=== PATIENT | female | born 1955 ===

== ENCOUNTER 2022-06-13 09:23 | Outpatient (REF) | payer OTHER, SELFPAY ==
[2022-06-13 11:50] LABS: Hematocrit 47.3 % (37.0-47.0); Hemoglobin 15.5 g/dl (12.0-16.0); Mean Corpuscular HGB Conc 32.8 g/dl (31.0-35.0); Mean Corpuscular Hemoglobin 30.2 pg (27.0-33.0); Mean Platelet Volume 11.1 fL (9.4-12.3); Platelet Count 312 X10*3/uL (160-400); Red Blood Count 5.14 X10*6/uL (4.20-5.50); Red Cell Distribution Width 14.2 % (11.0-16.0); White Blood Count 7.1 X10*3/uL (4.8-10.8)
[2022-06-13 12:12] LABS: Alanine Aminotransferase 22 U/L (0-31); Albumin Level 4.2 g/dL (3.5-5.0); Alkaline Phosphatase 94 U/L (39-117); Anion Gap 12 (12-20); Aspartate Amino Transferase 19 U/L (5-31); Bilirubin Total 0.5 mg/dL (0.0-1.0); Blood Urea Nitrogen 15 mg/dL (9-16); Calcium 9.1 mg/dL (8.4-10.2); Carbon Dioxide 26 mmol/L (22-29); Chloride 107 mmol/L (96-108); Cholesterol 298 mg/dL; Estimated Glomerular Filt Rate 56; Glucose Fasting 98 mg/dL (60-99); HDL Cholesterol 49 mg/dL; LDL Cholesterol Calculated 216 mg/dl; Potassium 4.3 mmol/L (3.3-5.1); Sodium 141 mmol/L (135-145); Triglycerides 167 mg/dL
[2022-06-13 12:49] LABS: TSH reflex Free T4 1.33 uIU/mL (0.32-4.0)
[2022-06-13 13:47] LABS: Vitamin D 25-OH Total 35.8 ng/mL (>30)
== END 2022-06-13 09:24 | disposition home or self-care (01) ==
LOC: HO.WFDLDS 09:23
PROVIDERS: Visit Provider Nurse Practitioner Family
DX: Z00.00 Encounter for general adult medical examination without abnormal findings (principal)
CPT/HCPCS: 36415; 80053; 80061; 82306; 84443; 85027

== ENCOUNTER 2022-06-21 11:23 | Outpatient (REF) | payer OTHER, SELFPAY ==
[2022-06-21 14:22] LABS: Appearance Urine Cloudy; Color Urine Yellow; Glucose Urine UA Negative (Negative); Leukocyte Esterase Urine Negative (Negative); Nitrite Urine Negative (Negative); PH 7.5 (5.0-9.0); Specific Gravity - Urine 1.015 (1.005-1.025); Urine Blood Negative (Negative); Urine Ketones Negative (Negative); Urine Protein Negative (Neg-Trace)
== END 2022-06-21 11:24 | disposition home or self-care (01) ==
LOC: HO.WFDLNP 11:23
PROVIDERS: Visit Provider Nurse Practitioner Family
DX: R35.0 Frequency of micturition (principal)
CPT/HCPCS: 81003

== ENCOUNTER → 2022-08-16 09:41 | Outpatient (BNVA) | payer OTHER, SELFPAY | PROVIDERS: PCP Nurse Practitioner Family; Visit Provider Nurse Practitioner Family | DX: N39.3 Stress incontinence (female) (male) (principal) | CPT/HCPCS: 51798; 99202 ==

== ENCOUNTER 2022-08-17 09:00 | Outpatient (RCR) | payer OTHER, SELFPAY ==
--- NOTE | 2022-08-04 10:19 | MHC.OT.EP ---
[address] [phone] Occupational Therapy Plan of Care Patient Name: Eveline Patricio Date of Evaluation: 08/04/22 Diagnosis: Pain in right hand Pain Location: 0-7 right index finger and small finger IP's Pain Score: Burning Pain Scale Used: Numeric (0 - 10) Aggravating Factors: Using, bending finger Alleviating Factors: Nemesio Mccrary, glove , massage Assessment: Pt is a 66 yo female with worsening ring index finger pain and stiffness over this past 6 months Pt reports she is now increased difficulty with daily activities due right hand index finger due to pain and avoiding use of index Pt will benefit from OT to improve pain , ROM and right hand function to prevent worsening jt contracture and pain Frequency and Duration: The patient will be seen 2x wk x 3 wks Short Term Goals: Demo indep with HEP Demo use of thermal modalities and jt protection techniques for pain management Use of right index with ADL Use of right index for small object pick up man and manipulation Event Crew Technician Goals: Indep with HEP progression for ROM and hand strengthening Right skin lifter bacon to WNL Right tip pinch to > 6 lb Right index PIP flex > 90 deg Right index DIP flex > 45 deg Treatment Plan: Therapeutic Exercise Therapeutic Activity Home Exercise Program Patient Education ADL Training Paraffin Fluidotherapy MHP Electronically Signed By: Yas Oliver OT CHT CLT Please Sign and return to therapist. Thank you once again for your referral.
--- NOTE | 2022-08-17 09:47 | MHC.OT.DC ---
[address] [phone] F: [phone] Occupational Therapy Discharge Note Patient Name: Eveline Patricio Provider: Waldo Murillo Diagnosis: Pain in right hand Date of Surgery: Date of Evaluation: 08/04/22 Date of Discharge: 08/17/22 Treatments to Date: 4 Cancellations to Date: 1 No Shows to Date: Discharge Status: Achieved Goals Improved Function Independent with HEP Discharge Summary: Improving right hand pain and index finger ROM , WFL . Deck Mate strength WNL. Pt is aware of joint protection techniques for index finger with daily activities. Goals met. Electronically Signed By: Yas Oliver OT CHT CLT Reviewed/agree with student documentation: Therapist: Please Sign and return to therapist, thank you for your referral.
== END 2022-08-17 09:48 | disposition home or self-care (01) ==
LOC: HO.OT 09:00
PROVIDERS: PCP Nurse Practitioner Family; Visit Provider Nurse Practitioner Family
DX: M79.641 Pain in right hand (principal)
CPT/HCPCS: 97035; 97110; 97165

== ENCOUNTER 2022-09-14 09:51 | Outpatient (REF) | payer OTHER, SELFPAY ==
--- NOTE | ~2022-09-14 | US_ITS ---
EXAMINATION: US RETROPERITONEAL COMPLETE (RENAL) CLINICAL INFORMATION: Unspecified urinary incontinence. Kidney donor. COMPARISON: None available. TECHNIQUE: Real-time imaging of the solitary right kidney and bladder. Limited visualization due to bowel gas. FINDINGS: RIGHT KIDNEY: 11.5 x 4.9 x 6.4 cm (SAG x AP x TRV). There is a 0.3 cm renal calculus. Mild fullness right renal pelvis. Scattered tiny echogenic foci within the right kidney, possibly representing tiny calcifications. Limited visualization. Renal cortical thickness is normal. LEFT KIDNEY: Surgically absent, donated. BLADDER: Well distended and unremarkable. Bilateral ureteral jets are demonstrated. Prevoid bladder volume is 323 mL. Postvoid bladder volume is 19.2 mL. US/US retroperitoneal comp IMPRESSION: 1. There is a 0.3 cm right renal calculus. Mild fullness right renal pelvis. Scattered tiny echogenic foci within the right kidney, possibly representing tiny calcifications. 2. Left kidney is surgically absent.
== END 2022-09-14 09:52 | disposition home or self-care (01) ==
LOC: HO.US 09:51
PROVIDERS: Visit Provider Nurse Practitioner Family
DX: N39.3 Stress incontinence (female) (male) (principal)
CPT/HCPCS: 76770

== ENCOUNTER 2022-10-11 08:41 | Outpatient (REF) | payer OTHER, SELFPAY ==
[2022-10-11 11:58] LABS: Cholesterol 214 mg/dL; HDL Cholesterol 48 mg/dL; LDL Cholesterol Calculated 117 mg/dl; Triglycerides 249 mg/dL
== END 2022-10-11 08:42 | disposition home or self-care (01) ==
LOC: HO.WFDLDS 08:41
PROVIDERS: Visit Provider Nurse Practitioner Family
DX: E78.5 Hyperlipidemia, unspecified (principal)
CPT/HCPCS: 36415; 80061

== ENCOUNTER 2022-10-13 09:51 | Outpatient (AMB) | payer OTHER, SELFPAY ==
--- NOTE | 2022-10-13 09:54 | A.OFFPC_ITS ---
Vital Signs 10/13/22 09:57 Height 5 ft 4 in Weight 150 lb BMI 25.7 BP 124/78 Blood Pressure Location Lt brachial Position Sitting Pulse 79 Pulse Source Pulse Oximeter Pulse Oximetry (%) 98 Intake Visit Reasons: f/u HTN Intake Note: pt is here for HTN [employer] Hrms Developer Required: No Accompanied by: Self / Same As Patient Allergies No Known Allergies Allergy (Verified 10/13/22 10:13) Medication List - Last Reconciled 10/13/22 by Waldo Murillo CNP atorvastatin 20 mg PO BEDTIME omeprazole 20 mg PO DAILY 30 days oxybutynin chloride ER 10 mg PO DAILY 30 days Tobacco use date assessed: 06/21/22 Fall risk assessment: No Falls in past year Last assessed Fall Risk: 10/13/22 Dental Screening Dental Screen Date: 10/13/22 Did you have a dental visit in the last 12 months?: Yes Did you have a dental problem in the last 6 months where you did not have access to dental care?: No Was dental information given to patient?: Patient has dentist HPI HPI Comments History of Present Illness Details 66-year-old female presents for elevated blood pressure and hyperlipidemia follow-up. She notes she has been taking her medications as prescribed. No acute symptoms today. She notes that right hand pain has completely resolved following PT. She notes she does not recall her last mammogram and pap smear test. She states she has never had a bone scan. She states she has not received the pneumonia vaccine because she was asked by the pharmacy to pay $200 dollars as her health plan does not cover the vaccines. She admits to smoking 10 cigarettes daily. She states she will quit when she is ready. PFSH Family History Brother Lung cancer Brain cancer Social History Housing: Apartment Patient Tobacco Use Status: Current everyday Tobacco user Tobacco use type: Cigarette Cigarette Packs Per Day: 1 Cigarettes Per Day: 20 e-Cigarette/Vaping Use: Never Used service: No Current occupational status: retired Cognitive needs: No Hearing needs: No Vision needs: No Questionnaire Thrive Questionnaire Date Thrive assessed: 04/28/22 ERIK-7 AMB Questionnaire ERIK-7 Date ERIK - 7 assessed: 04/28/22 Source: Developed by Drs. Lazaro Meeks, Ania Gaytan, Juan Zhang and colleagues, with an educational donta from [employer]. Review of Systems Const Details: Const Denies chills, Denies fatigue, Denies fever(s), Denies headache(s) and Denies w eakness ENT Denies dizziness and Denies headache(s) Card Denies chest pain, Denies lightheadedness, Denies dyspnea and Denies other (Palpitations) Resp Denies cough, Denies dyspnea, Denies wheezing and Denies other ( shortness of breath) GI Denies abdominal pain, Denies melena, Denies hematochezia, Denies change in bowel habits, Denies dyspepsia and Denies nausea Denies hematuria and Denies dysuria Musc Denies abnormal gait, Denies myalgias, Denies arthralgias, Denies numbness and Denies tingling Skin/Breast Denies rash, Denies unusual bruising and Denies wounds Neuro Denies abnormal gait, Denies dizziness, Denies headache(s), Denies memory loss, Denies numbness, Denies Sensory deficit (Neuro), Denies tingling and Denies weakness Psych Denies anxiety and Denies depression Endo Denies fatigue Aller/Immun Denies wheezing Physical exam (Primary Care) Vital Signs: Last Vital Signs Pulse 79 10/13/22 09:57 BP 124/78 10/13/22 09:57 Pulse Ox 98 10/13/22 09:57 BMI result Body Mass Index 25.7 Tobacco/Smoking Status: Tobacco use Status Tobacco use date assessed 06/21/22 10/13/22 09:55 Patient Tobacco Use Status Current everyday Tobacco 10/13/22 09:55 Tobacco use type Cigarette 10/13/22 09:55 e-Cigarette/Vaping Use Never Used 10/13/22 09:55 Thrive Assessment: Date of Thrive Assessment Date Thrive assessed 04/28/22 10/13/22 09:55 Const Other: General: no acute distress and well developed Nutritional Appearance: well nourished Orientation/consciousness: patient oriented x3 HENMT Head: Yes normocephalic and Yes atraumatic Eyes General: appearance normal, both eyes and all related structures Pupils: Equal, round and reactive pupils present EOM: EOMs intact bilaterally Resp Effort & Inspection: normal respiratory effort Auscultation: clear to auscultation bilaterally Cardio Rate: regular rate Rhythm: regular rhythm Heart sounds: S1 normal heart sound present, S2 normal heart sound present, no gallops, no murmurs and no rubs GI Palpation (GI): No Abdominal aortic bruit present, Soft to palpation, nontender, No hepatosplenomegaly present and No Rebound tenderness present Auscultation: normal bowel sounds General: Yes no CVA tenderness Back/Spine/Pelvis Back: no CVA tenderness Cervical Spine: cervical ROM normal and No Cervical spine tenderness Thoracic/Lumbar Spine: thoraco-lumbar ROM normal, No pain with thoraco-lumbar ROM, No thoracic spinal tenderness and No lumbar spinal tenderness Extrem General: Yes normal to inspection, No edema and No calf tenderness Skin General: warm and dry. Normal skin color. Normal skin turgor Lesions: no lesions Rashes: no rashes Trauma: no lacerations or abrasions Wounds: no wounds Nails: normal Neuro General: patient oriented x3, gait normal and no focal neuro deficit Cranial nerves: Yes Equal, round and reactive pupils present Cognition (Neuro): normal cognition Gait exam (Neuro): Normal gait present Sensory Exam: No Sensory deficit (Neuro) Psych Affect: normal affect Assessment and Plan Assessment & Plan (1) Elevated BP without diagnosis of hypertension: Code(s): R03.0 - Elevated blood-pressure reading, without diagnosis of hypertension Plan: Blood pressure is controlled, 124/78 Low-sodium diet and routine exercise encouraged Verbalized understanding and agreed with the treatment plan. (2) Hyperlipidemia: Code(s): E78.5 - Hyperlipidemia, unspecified Plan: Total cholesterol and LDL levels are improving. Triglyceride level is trending up Fenofibrate ordered. Take as prescribed Continue to take Atorvastatin as prescribed Low sodium diet and routine exercise encouraged Follow up in 6 weeks Return sooner with concerns or symptoms Verbalized understanding and agreed with the treatment plan (3) Smoking: Code(s): F17.200 - Nicotine dependence, unspecified, uncomplicated Plan: She admits to smoking 10 cigarettes daily. She states she will quit when she is ready. Smoking cessation encouraged (4) Pap smear for cervical cancer screening: Code(s): Z12.4 - Encounter for screening for malignant neoplasm of cervix Plan: She notes she does not recall her last mammogram and pap smear test Referred to OBGYN for Pap smear test (5) Breast cancer screening by mammogram: Code(s): Z12.31 - Encounter for screening mammogram for malignant neoplasm of breast Plan: She states she has never had a bone scan DEXA scan ordered (6) At risk of fracture due to osteoporosis: Code(s): M81.0 - Age-related osteoporosis without current pathological fracture; Z91.89 - Other specified personal risk factors, not elsewhere classified Orders: Orders XR DEXA axial skeleton Today M81.0 - Age-related osteoporosis without current pathological fracture, Z91.89 - Other specified personal risk factors, not elsewhere classified MM screening mammo BI Today Z12.31 - Encounter for screening mammogram for malignant neoplasm of breast Referrals BEAMING INSPECTOR Referral Z12.4 - Encounter for screening for malignant neoplasm of cervix Medications: New fenofibrate 54 mg PO DAILY 30 tabs 3RF 30 days Coding Level of Care Code Est Pt Level 3 (86708) Diagnoses Elevated BP without diagnosis of hypertension R03.0 Hyperlipidemia E78.5 Smoking F17.200 Pap smear for cervical cancer screening Z12.4 Breast cancer screening by mammogram Z12.31 At risk of fracture due to osteoporosis M81.0; Z91.89 Time Spent (min) 25
[2022-10-13 09:57] VITALS: BP 124/78; PULSE 79; O2SAT 98; BMI 25.7
== END 2022-10-13 10:32 | disposition home or self-care (01) ==
PROVIDERS: Visit Provider Nurse Practitioner Family
DX: R03.0 Elevated blood-pressure reading, without diagnosis of hypertension (principal); E78.5 Hyperlipidemia, unspecified; F17.200 Nicotine dependence, unspecified, uncomplicated; Z91.89 Other specified personal risk factors, not elsewhere classified; Z12.31 Encounter for screening mammogram for malignant neoplasm of breast; M81.0 Age-related osteoporosis without current pathological fracture
CPT/HCPCS: 99213

== ENCOUNTER 2022-10-21 11:33 | Outpatient (AMB) | payer OTHER, SELFPAY ==
--- NOTE | 2022-10-21 11:36 | MHC.OFFVIS ---
Intake Intake Visit Reasons: 6w/US(SET) Intake Note: Patient is present for follow up urinary frequency/incontinence/ultrasound (imaging 09/14/22) Urology Medications: Oxybutynin Blood Thinner: none PVR: 46ml's Insurance Attorney Required: No Accompanied by: Self / Same As Patient Allergies No Known Allergies Allergy (Verified 10/21/22 12:10) Medication List - Last Reconciled 10/21/22 by ZAKI Zhang atorvastatin 20 mg PO BEDTIME fenofibrate 54 mg PO DAILY 30 days mirabegron ER (Myrbetriq) 25 mg PO DAILY 30 days omeprazole 20 mg PO DAILY 30 days HPI HPI Comments History of Present Illness Details Eveline is a pleasant 66-year-old female patient of Dr. Murillo. She presents to the office today for a follow up. Of note, patient was seen approximately 2 months ago as a new patient for urinary incontinence at which time a retroperitoneal ultrasound was ordered and the patient was started on 10 mg of oxybutynin daily. When asked she reports to be doing and feeling well. Recent retroperitoneal ultrasound results reviewed with the patient today. There is a 0.3 cm renal calculus. Left kidney is surgically absent. The bladder is well distended and unremarkable. Pre void bladder volume is approximately 330 mL. Postvoid bladder volume is approximately 20 mL. When asked patient reports no improvement in mixed urinary incontinence with 10 mg of oxybutynin daily. She continues utilizing 2-3 adult diapers per day. When asked she reports having had 6 vaginal deliveries in the past. She reports babies to have been of average size and 1 out of the 6 labors to have been long otherwise labors were somewhat quick. When asked she denies hematuria, dysuria, foul smelling urine, changes to urinary stream, flank pain, fever, and or chills. Discussed potential causes for urinary incontinence as well as further treatment options with lifestyle modifications, pelvic floor, and or trial of other medications. In office urinalysis results reviewed with the patient today. PVR 46ml's. Patient otherwise denies any urinary issues or concerns at this time. [facility] Family History Brother Lung cancer Brain cancer Social History Housing: Apartment Patient Tobacco Use Status: Current everyday Tobacco user Tobacco use type: Cigarette Cigarette Packs Per Day: 1 Cigarettes Per Day: 20 e-Cigarette/Vaping Use: Never Used service: No Current occupational status: retired Cognitive needs: No Hearing needs: No Vision needs: No Review of Systems Const Reports no additional complaints Eyes Reports no additional complaints ENT Reports no additional complaints Card Reports no additional complaints Resp Reports no additional complaints GI Reports no additional complaints Reports as per HPI Musc Reports no additional complaints Neuro Reports no additional complaints Psych Reports no additional complaints Endo Reports no additional complaints Trent/Lymph Reports no additional complaints Aller/Immun Reports no additional complaints Physical Exam Const General: cooperative, healthy appearing, comfortable, no acute distress, well developed, alert and awake Orientation/consciousness: patient oriented x3 Limitations: no limitations HEENT Head: Yes normal to inspection, Yes normocephalic and Yes atraumatic Ears: hearing grossly normal bilaterally Eyes General: appearance normal, both eyes and all related structures Neck Neck: Yes normal visual inspection and Yes trachea midline Chest Chest palpation & inspection: normal inspection of the chest Resp Effort & Inspection: normal respiratory effort and able to speak in complete sentences Cardio Rate: regular rate GI Inspection: Yes normal to inspection General: Yes no CVA tenderness Back/Spine/Pelvis Back: no CVA tenderness Skin General skin exam: no rashes or lesions noted Neuro General: patient oriented x3 Extrem General: Yes normal to inspection Psych Appearance: grossly normal and well kempt Mental Status: mental status grossly normal Speech and movement: Normal speech and movement present and Clear speech present Affect: normal affect Attitude: cooperative Thought process: Normal thought process present Thought content: Normal thought content present Insight: Good insight present (Psych) Judgement: Good judgement present (Psych) Results AMB Urinalysis, Automated UA Leukoctes 15 Mendy/uL Last Edit by [employer] on 10/21/22 11:54 UA Nitrite Negative Last Edit by [employer] on 10/21/22 11:54 UA Urobilinogen 0.2 mg/dL Last Edit by [employer] on 10/21/22 11:54 UA Protein 0 mg/dL Last Edit by [employer] on 10/21/22 11:54 UA pH 6.0 Last Edit by [employer] on 10/21/22 11:54 UA Blood 0 Jayden/uL Last Edit by [employer] [place] on 10/21/22 11:54 UA Specific [place] 1.015 Last Edit by [employer] [place] on 10/21/22 11:54 UA Ketone Negative Last Edit by [employer]re [place] on 10/21/22 11:54 UA Bilirubin 0 mg/dL Last Edit by Rere [place] on 10/21/22 11:54 UA Glucose 0 mg/dL Last Edit by Rere [place] on 10/21/22 11:54 Results Reviewed Results Reviewed: Laboratory Last Values Urine pH (Auto) 6.0 10/21/22 11:52 Specific [place] (Auto) 1.015 10/21/22 11:52 Urine Protein (Auto) 0 mg/dL 10/21/22 11:52 Glucose (UA)(Auto) 0 mg/dL 10/21/22 11:52 Urine Ketones (Auto) Negative 10/21/22 11:52 Urine Blood (Auto) 0 Jayden/uL 10/21/22 11:52 Urine Nitrite (Auto) Negative 10/21/22 11:52 Urine Bilirubin (Auto) 0 mg/dL 10/21/22 11:52 Urine Urobilinogen (Auto) 0.2 mg/dL 10/21/22 11:52 Leukocyte Esterase (Auto) 15 Mendy/uL 10/21/22 11:52 Date of Service: 09/14/22 EXAMINATION: US RETROPERITONEAL COMPLETE (RENAL) CLINICAL INFORMATION: Unspecified urinary incontinence. Kidney donor. COMPARISON: None available. TECHNIQUE: Real-time imaging of the solitary right kidney and bladder. Limited visualization due to bowel gas. FINDINGS: RIGHT KIDNEY: 11.5 x 4.9 x 6.4 cm (SAG x AP x TRV). There is a 0.3 cm renal calculus. Mild fullness right renal pelvis. Scattered tiny echogenic foci within the right kidney, possibly representing tiny calcifications. Limited visualization. Renal cortical thickness is normal. LEFT KIDNEY: Surgically absent, donated. BLADDER: Well distended and unremarkable. Bilateral ureteral jets are demonstrated. Prevoid bladder volume is 323 mL. Postvoid bladder volume is 19.2 mL. IMPRESSION: ? 1. There is a 0.3 cm right renal calculus. Mild fullness right renal pelvis. Scattered tiny echogenic foci within the right kidney, possibly representing tiny calcifications. ? 2. Left kidney is surgically absent. Assessment & Plan Assessment & Plan (1) Renal calculus, right: Code(s): N20.0 - Calculus of kidney (2) Incontinence: Code(s): R32 - Unspecified urinary incontinence Plan In office urinalysis results reviewed with the patient today. PVR 46 mL. Recent retroperitoneal ultrasound results reviewed with the patient today; as noted above. Stop oxybutynin Start Myrbetriq 25 mg daily. Discussed pelvic floor therapy as well as lifestyle modifications to assist with urinary incontinence. Discussed importance of limiting/quitting smoking for improvement in urinary symptoms as well as overall health and well-being Discussed near future in office cystoscopy if symptoms persist and/or worsen. Follow-up in 6 weeks with PVR; or sooner with any questions, concerns, and or issues. Orders: Orders AMB Urinalysis Automated 10/21/22 Z13.9 - Encounter for screening, unspecified Medications: New mirabegron ER (Myrbetriq) 25 mg PO DAILY 30 days 30 tabs 1RF N30.10 - Interstitial cystitis (chronic) without hematuria, N32.81 - Overactive bladder, R35.1 - Nocturia, R39.15 - Urgency of urination Discontinued oxybutynin chloride ER Discontinued Reason: Doctor's Order 10 mg PO DAILY 30 days 30 tabs 1RF N32.81 - Overactive bladder Patient Instructions: The patient had an opportunity to ask questions regarding the treatment plan. All questions were answered. Physical exam, labs, and imaging were discussed and reviewed in detail. As well as risks, benefits, and discussion of treatment choices. No major barriers to understanding were identified. The patient expressed understanding and agreement with the above treatment plan. The patient was made aware they should contact our office by phone for worsening of their current condition, the appearance of new symptoms, or with any questions or concerns. Compliance is encouraged with any medications and follow up testing that is ordered. It is a privilege to be allowed the opportunity to participate in? your urological care.? Again, if you have any questions or concerns If you have any questions or concerns please do not hesitate to contact me. The office is [phone]. This note is constructed using voice recognition software. While every effort has been made to ensure accuracy catalyst impregnator errors may have been included. Yours sincerely, Hilaria Olson, REAGENT TENDER-BC Coding Level of Care Code Est Pt Level 4 (72837) Diagnoses Renal calculus, right N20.0 Incontinence R32
== END 2022-10-21 14:05 | disposition home or self-care (01) ==
PROVIDERS: PCP Nurse Practitioner Family; Visit Provider Nurse Practitioner Family
DX: N20.0 Calculus of kidney (principal); R32 Unspecified urinary incontinence
CPT/HCPCS: 99214

== ENCOUNTER → 2022-10-21 11:33 | Outpatient (BNVA) | payer OTHER, SELFPAY | PROVIDERS: PCP Nurse Practitioner Family; Visit Provider Nurse Practitioner Family | DX: N20.0 Calculus of kidney (principal); R35.0 Frequency of micturition; R32 Unspecified urinary incontinence; Z90.5 Acquired absence of kidney; Z52.4 Kidney donor; Z79.899 Other long term (current) drug therapy | CPT/HCPCS: 99212 ==

== ENCOUNTER 2022-11-15 09:59 | Outpatient (REF) | payer OTHER, SELFPAY ==
--- NOTE | ~2022-11-15 | MM_ITS ---
EXAMINATION: MM SCREENING DIGITAL BREAST TOMOSYNTHESIS, BILATERAL CLINICAL INFORMATION: Screening. Asymptomatic. COMPARISON: Mammography: 01/02/2017, and 06/01/2010 from [facility]. TECHNIQUE: Digital breast tomosynthesis is performed in both the craniocaudal and mediolateral oblique views along with computer-aided detection (CAD). Synthesized 2D images are generated from the tomosynthesis. FINDINGS: The breasts are heterogeneously dense, which may obscure small masses (ACR BI-RADS breast composition Category c). There are early vascular calcifications bilaterally. There are no suspicious masses, suspicious grouped calcifications, or areas of architectural distortion. The parenchymal pattern is stable from prior exams. Stable benign smoothly marginated periareolar nodule upper outer quadrant anterior one third. MM/MM tomosynthesis screening BI IMPRESSION: No mammographic evidence of malignancy. ASSESSMENT: BI-RADS BI-RADS 2 - Benign Findings RECOMMENDATION: Routine annual mammography screening. 1 year F/U This examination should not preclude the clinical evaluation of a suspicious palpable abnormality. This patient's information was entered into a reminder system with a target due date for their next mammogram.
--- NOTE | ~2022-11-15 | MM_ITS ---
EXAMINATION: BONE DENSITOMETRY CLINICAL INDICATION: Age-related osteoporosis without current pathological fracture. COMPARISON: This is the patient's baseline examination. TECHNIQUE: Using a Scrip-t DXA System (software version: 13.1) manufactured by [employer], dual-energy x-ray absorptiometry was performed of the lumbar spine and left hip. The images are of good technical quality. Summary results are attached. FINDINGS: LEFT FEMUR, NECK: BMD 0.902 g/cm2, Z-score 0.5, T-score -1.0, normal. LEFT FEMUR, TOTAL: BMD 0.912 g/cm2, Z-score 0.5, T-score -0.8, normal. AP SPINE L1-L4: BMD 1.065 g/cm2, Z-score 0.6, T-score -1.0, normal. IDENTIFIED RISK FACTORS: Menopause, tobacco use (current smoker), 3 or more alcoholic drinks per day. HISTORY OF FRACTURE: None listed. MEDICATIONS: None listed. MM/XR DEXA axial skeleton IMPRESSION: 1. DIAGNOSIS: Normal bone density based on the lowest T-score value of -1.0 in the femoral neck and lumbar spine applying World Health Organization criteria. 2. 10-YEAR FRACTURE RISK PREDICTION, FRAX: According to the guidelines, FRAX calculation should only be performed on patients in the osteopenia bone density category. Therefore, FRAX was not performed on this patient. 3. Treatment Recommendations: NOF guidelines recommend consideration for treatment in postmenopausal women and men age 50 and older presenting with the following: -A hip or vertebral (clinical or morphometric) fracture. -T-score less than or equal to -2.5 at the femoral neck or spine after appropriate evaluation to exclude secondary causes. -Low bone mass at the hip or spine and a 10-year fracture probability by FRAX of greater than or equal to 3% for hip fracture or greater than or equal to 20% for major osteoporotic fracture based on the [place] adapted WHO algorithm. 4. Other Recommendations: All treatment decisions require clinical judgment and consideration of individual patient factors, including patient preferences, comorbidities, previous drug use, risk factors not captured in the FRAX model (e.g. frailty, falls, vitamin D deficiency, increased bone turnover, interval significant decline in bone density) and possible under or overestimation of fracture risk by FRAX. FUTURE SCAN RECOMMENDATION: People with diagnosed cases of osteoporosis or at high risk for fracture should have regular bone mineral density tests. For patients eligible for Medicare, routine testing is allowed once every 2 years. The testing frequency can be increased to one year for patients who have rapidly progressing disease, those who are receiving or discontinuing medical therapy to restore bone mass, or have additional risk factors.
== END 2022-11-15 10:00 | disposition home or self-care (01) ==
LOC: HO.MAMMO 09:59
PROVIDERS: PCP Nurse Practitioner Family; Visit Provider Nurse Practitioner Family
DX: Z12.31 Encounter for screening mammogram for malignant neoplasm of breast (principal); Z13.820 Encounter for screening for osteoporosis; Z78.0 Asymptomatic menopausal state; M81.0 Age-related osteoporosis without current pathological fracture; Z91.89 Other specified personal risk factors, not elsewhere classified
CPT/HCPCS: 77063; 77067; 77080

== ENCOUNTER → 2022-11-15 10:30 | Outpatient (BNV) | payer OTHER, SELFPAY | PROVIDERS: PCP Nurse Practitioner Family; Visit Provider Radiology Diagnostic Radiology | DX: Z12.31 Encounter for screening mammogram for malignant neoplasm of breast (principal) | CPT/HCPCS: 77063; 77067; 77080 ==

== ENCOUNTER 2022-11-22 08:42 | Outpatient (REF) | payer OTHER, SELFPAY ==
[2022-11-22 11:41] LABS: Cholesterol 216 mg/dL (<200); HDL Cholesterol 48 mg/dL (>40); LDL Cholesterol Calculated 141 mg/dL (<100); Triglycerides 137 mg/dL (<150)
== END 2022-11-22 08:43 | disposition home or self-care (01) ==
LOC: HO.WFDLDS 08:42
PROVIDERS: Visit Provider Nurse Practitioner Family
DX: E78.5 Hyperlipidemia, unspecified (principal)
CPT/HCPCS: 36415; 80061

== ENCOUNTER 2022-11-24 09:39 | Outpatient (AMB) | payer OTHER, SELFPAY ==
--- NOTE | 2022-11-24 09:59 | MHC.PC.OV ---
Vital Signs 11/24/22 10:00 Height 5 ft 4 in Weight 148 lb BMI 25.4 BP 124/58 L Blood Pressure Location Lt brachial Position Sitting Respiration 15 Pulse 84 Pulse Source Pulse Oximeter Temp 98.9 F Temp Source Oral Pulse Oximetry (%) 96 Oxygen Delivery Method Room Air Intake Visit Reasons: f/u HLD Intake Note: Patient reports she would like a new RX for mirabegron ER, otherwise no concerns. Sub Plant Manager Required: No Allergies No Known Allergies Allergy (Verified 11/24/22 10:19) Medication List - Last Reconciled 11/24/22 by Waldo Murillo CNP atorvastatin 20 mg PO BEDTIME fenofibrate 54 mg PO DAILY 30 days mirabegron ER (Myrbetriq) 25 mg PO DAILY 30 days omeprazole 20 mg PO DAILY 30 days Tobacco use date assessed: 06/21/22 Fall risk assessment: No Falls in past year Last assessed Fall Risk: 11/24/22 HPI HPI Comments History of Present Illness Details 67-year-old female presents for hyperlipidemia follow-up. She is on atorvastatin and fenofibrate. She admits to taking her medications as prescribed. No acute symptoms today. PFSH Family History Brother Lung cancer Brain cancer Social History Housing: Apartment Patient Tobacco Use Status: Current everyday Tobacco user Tobacco use type: Cigarette Cigarette Packs Per Day: 1 Cigarettes Per Day: 20 e-Cigarette/Vaping Use: Never Used service: No Current occupational status: retired Cognitive needs: No Hearing needs: No Vision needs: No Questionnaire Thrive Questionnaire Date Thrive assessed: 04/28/22 ERIK-7 AMB Questionnaire ERIK-7 Date ERIK - 7 assessed: 04/28/22 Source: Developed by Drs. Lazaro Meeks, Ania Gaytan, Juan Zhang and colleagues, with an educational donta from [employer]. Review of Systems Const Details: Const Denies chills, Denies fatigue, Denies fever(s), Denies headache(s) and Denies weakness ENT Denies dizziness and Denies headache(s) Card Denies chest pain, Denies lightheadedness, Denies dyspnea and Denies other (Palpitations) Resp Denies cough, Denies dyspnea, Denies wheezing and Denies other ( shortness of breath) GI Denies abdominal pain, Denies melena, Denies hematochezia, Denies change in bowel habits, Denies dyspepsia and Denies nausea Denies hematuria and Denies dysuria Musc Denies abnormal gait, Denies myalgias, Denies arthralgias, Denies numbness and Denies tingling Skin/Breast Denies rash, Denies unusual bruising and Denies wounds Neuro Denies abnormal gait, Denies dizziness, Denies headache(s), Denies memory loss, Denies numbness, Denies Sensory deficit (Neuro), Denies tingling and Denies weakness Psych Denies anxiety, Denies depression, Denies memory loss Endo Denies cold intolerance, Denies fatigue, Denies heat intolerance, Denies polydipsia and Denies polyuria Aller/Immun Denies wheezing Physical exam (Primary Care) Vital Signs: Last Vital Signs Temp 98.9 F 11/24/22 10:00 Pulse 84 11/24/22 10:00 Resp 15 11/24/22 10:00 BP 124/58 L 11/24/22 10:00 Pulse Ox 96 11/24/22 10:00 Oxygen Delivery Method Room Air 11/24/22 10:00 BMI result Body Mass Index 25.4 Tobacco/Smoking Status: Tobacco use Status Tobacco use date assessed 06/21/22 11/24/22 10:05 Patient Tobacco Use Status Current everyday Tobacco 11/24/22 10:05 Tobacco use type Cigarette 11/24/22 10:05 e-Cigarette/Vaping Use Never Used 11/24/22 10:05 Thrive Assessment: Date of Thrive Assessment Date Thrive assessed 04/28/22 11/24/22 10:05 Const Other: General: no acute distress and well developed Nutritional Appearance: well nourished Orientation/consciousness: patient oriented x3 HENMT Head: Yes normocephalic and Yes atraumatic Eyes General: appearance normal, both eyes and all related structures Pupils: Equal, round and reactive pupils present EOM: EOMs intact bilaterally Resp Effort & Inspection: normal respiratory effort Auscultation: clear to auscultation bilaterally Cardio Rate: regular rate Rhythm: regular rhythm Heart sounds: S1 normal heart sound present, S2 normal heart sound present, no gallops, no murmurs and no rubs GI Palpation (GI): No Abdominal aortic bruit present, Soft to palpation, nontender, No hepatosplenomegaly present and No Rebound tenderness present Auscultation: normal bowel sounds General: Yes no CVA tenderness Back/Spine/Pelvis Back: no CVA tenderness Cervical Spine: cervical ROM normal and No Cervical spine tenderness Thoracic/Lumbar Spine: thoraco-lumbar ROM normal, No pain with thoraco-lumbar ROM, No thoracic spinal tenderness and No lumbar spinal tenderness Extrem General: Yes normal to inspection, No edema and No calf tenderness Skin General: warm and dry. Normal skin color. Normal skin turgor Lesions: no lesions Rashes: no rashes Trauma: no lacerations or abrasions Wounds: no wounds Nails: normal Neuro General: patient oriented x3, gait normal and no focal neuro deficit Cranial nerves: Yes Equal, round and reactive pupils present Cognition (Neuro): normal cognition Gait exam (Neuro): Normal gait present Sensory Exam: No Sensory deficit (Neuro) Psych Appearance: grossly normal Affect: normal affect Attitude: cooperative Thought process: Normal thought process present Assessment and Plan Assessment & Plan (1) Hyperlipidemia: Code(s): E78.5 - Hyperlipidemia, unspecified Qualifiers: Hyperlipidemia type: other hyperlipidemia Qualified Code(s): E78.49 - Other hyperlipidemia Plan: Recent lipid panel lab results reviewed with the patient Triglyceride have normalized; cholesterol and LDL are slightly elevated from last results Continue to take atorvastatin and fenofibrate as prescribed Advised to limit foods high in saturated fat and avoid foods high trans fat Routine exercise encouraged Encouraged to get fasting lipid panel blood work done before next visit Follow-up in 3 months Return sooner with symptoms or concerns Verbalized understanding and agreed with treatment plan. Recent bone scan results reviewed with the patient. Informed that she has 1 refill for Mirabegron She notes she has a follow-up with urology this month. Orders: Orders Lipid Panel 3 Months E78.5 - Hyperlipidemia, unspecified Coding Level of Care Code Est Pt Level 3 (69351) Diagnoses Other hyperlipidemia E78.49 Hyperlipidemia type: other hyperlipidemia
[2022-11-24 10:00] VITALS: BP 124/58; PULSE 84; RESP 15; TEMP 37.2; O2SAT 96; BMI 25.4
== END 2022-11-24 10:28 | disposition home or self-care (01) ==
PROVIDERS: PCP Nurse Practitioner Family; Visit Provider Nurse Practitioner Family
DX: E78.49 Other hyperlipidemia (principal)
CPT/HCPCS: 99213

== ENCOUNTER 2022-12-02 09:16 | Outpatient (AMB) | payer OTHER, SELFPAY ==
--- NOTE | 2022-12-02 09:33 | A.OFFVIS_ITS ---
Intake Intake Visit Reasons: 6w/PVR Intake Note: Patient is present for follow up urinary frequency/incontinence Urology Medications: D/C Oxybutynin, currently Blood Thinner: none PVR: 73mls Sound Cutter Required: No Accompanied by: Self / Same As Patient Allergies No Known Allergies Allergy (Verified 12/02/22 10:14) Medication List - Last Reconciled 12/02/22 by ZAKI Zhang atorvastatin 20 mg PO BEDTIME fenofibrate 54 mg PO DAILY 30 days mirabegron ER (Myrbetriq) 25 mg PO DAILY 30 days omeprazole 20 mg PO DAILY 30 days HPI HPI Comments History of Present Illness Details Eveline is a pleasant 66-year-old female patient of Dr. Murillo. She presents to the office today for a follow up. Of note, patient was seen approximately 2 months ago at which time oxybutynin was discontinued as patient reported no improvement in urinary symptoms and started on 25 mg of Myrbetriq daily. In discussion with the patient today she reports significant improvement in lower urinary tract symptoms on Myrbetriq 25 mg daily and is requesting a refill. Previous workup has included a retroperitoneal ultrasound noting a 0.3 cm renal calculus. Left kidney is surgically absent. The bladder is well distended and unremarkable. Pre void bladder volume is approximately 330 mL. Postvoid bladder volume is approximately 20 mL. She reports previously she had been utilizing 2-3 adult diapers daily however has since been able to just use 1 on Myrbetriq 25 mg daily. When asked she reports having had 6 vaginal deliveries in the past. She reports babies to have been of average size and 1 out of the 6 labors to have been long otherwise labors were somewhat quick. When asked she denies hematuria, dysuria, foul smelling urine, changes to urinary stream, fever, and or chills. She does however report episodes of back pain and right- sided flank pain. Discussed obtaining KUB for further assessment evaluation as previous retroperitoneal ultrasound noting 0.3 cm right renal calculus. No CVA tenderness noted on exam today. Discussed potential causes for urinary incontinence as well as further treatment options with lifestyle modifications and pelvic floor to assist with symptoms. In office urinalysis results reviewed with the patient today. PVR 73ml's. Patient otherwise denies any urinary issues or concerns at this time. [facility] Family History Brother Lung cancer Brain cancer Social History Housing: Apartment Patient Tobacco Use Status: Current everyday Tobacco user Tobacco use type: Cigarette Cigarette Packs Per Day: 1 Cigarettes Per Day: 20 e-Cigarette/Vaping Use: Never Used service: No Current occupational status: retired Cognitive needs: No Hearing needs: No Vision needs: No Review of Systems Const Reports no additional complaints Eyes Reports no additional complaints ENT Reports no additional complaints Card Reports no additional complaints Resp Reports no additional complaints GI Reports no additional complaints Reports as per HPI Musc Reports no additional complaints Neuro Reports no additional complaints Psych Reports no additional complaints Endo Reports no additional complaints Trent/Lymph Reports no additional complaints Aller/Immun Reports no additional complaints Physical Exam Const General: cooperative, healthy appearing, comfortable, no acute distress, well developed, alert and awake Orientation/consciousness: patient oriented x3 Limitations: no limitations HEENT Head: Yes normal to inspection, Yes normocephalic and Yes atraumatic Ears: hearing grossly normal bilaterally Eyes General: appearance normal, both eyes and all related structures Neck Neck: Yes normal visual inspection and Yes trachea midline Chest Chest palpation & inspection: normal inspection of the chest Resp Effort & Inspection: normal respiratory effort and able to speak in complete sentences Cardio Rate: regular rate GI Inspection: Yes normal to inspection General: Yes no CVA tenderness Back/Spine/Pelvis Back: no CVA tenderness Skin General skin exam: no rashes or lesions noted Neuro General: patient oriented x3 Extrem General: Yes normal to inspection Psych Appearance: grossly normal and well kempt Mental Status: mental status grossly normal Speech and movement: Normal speech and movement present and Clear speech present Affect: normal affect Attitude: cooperative Thought process: Normal thought process present Thought content: Normal thought content present Insight: Good insight present (Psych) Judgement: Good judgement present (Psych) Office Procedures Post Void Residual Post Residual Void Post Void Residual (PVR): 73 [id number] Void Residual by ultrasound Results AMB Urinalysis, Automated UA Leukoctes 0 Mendy/uL Last Edit by SHERRI Lopez on 12/02/22 10:14 UA Nitrite Negative Last Edit by SHERRI Lopez on 12/02/22 10:14 UA Urobilinogen 0.2 mg/dL Last Edit by Adrian Martin, A on 12/02/22 10:1 4 UA Protein 0 mg/dL Last Edit by Adrian Martin, A on 12/02/22 10:14 UA pH 6.5 Last Edit by Franklynmeagan Martin, RMA on 12/02/22 10:14 UA Blood 0 Jayden/uL Last Edit by Franklynmeagan Martin, A on 12/02/22 10:14 UA Specific [place] 1.020 Last Edit by Adrian Martin, RMA on 12/02/22 10: 14 UA Ketone Negative Last Edit by Franklynmeagan Martin, RMA on 12/02/22 10:14 UA Bilirubin 0 mg/dL Last Edit by Adrian Martin, A on 12/02/22 10:14 UA Glucose 0 mg/dL Last Edit by Fraknlynmeagan Martin, A on 12/02/22 10:14 Results Reviewed Results Reviewed: Laboratory Last Values Urine pH (Auto) 6.5 12/02/22 09:34 Specific [place] (Auto) 1.020 12/02/22 09:34 Urine Protein (Auto) 0 mg/dL 12/02/22 09:34 Glucose (UA)(Auto) 0 mg/dL 12/02/22 09:34 Urine Ketones (Auto) Negative 12/02/22 09:34 Urine Blood (Auto) 0 Jayden/uL 12/02/22 09:34 Urine Nitrite (Auto) Negative 12/02/22 09:34 Urine Bilirubin (Auto) 0 mg/dL 12/02/22 09:34 Urine Urobilinogen (Auto) 0.2 mg/dL 12/02/22 09:34 Leukocyte Esterase (Auto) 0 Mendy/uL 12/02/22 09:34 Assessment & Plan Assessment & Plan (1) Flank pain: Code(s): R10.9 - Unspecified abdominal pain (2) Renal calculus, right: Code(s): N20.0 - Calculus of kidney (3) Incontinence: Code(s): R32 - Unspecified urinary incontinence (4) Urinary frequency: Code(s): R35.0 - Frequency of micturition Plan In office urinalysis results reviewed with the patient today; as noted above. PVR 73 mL. Continue Myrbetriq 25 mg daily as discussed and prescribed; refill provided Will obtain KUB for further assessment evaluation as patient reporting right- sided flank pain with previous ultrasound noting 0.3 mm right renal calculus. No CVA tenderness noted on exam today. Discussed, educated, encouraged on the importance of drinking plenty of water daily. Discussed adding 1 oz of lemon juice to water daily. Follow-up in 1-2 weeks with imaging to be completed prior; or sooner with any issues, concerns, and or questions. Orders: Orders XR KUB 12/02/22 N20.0 - Calculus of kidney AMB Urinalysis Automated 12/02/22 N39.0 - Urinary tract infection, site not specified AMB Post Void Residual by ultrasound 12/02/22 N39.3 - Stress incontinence (female) (male) Medications: Changed From mirabegron ER (Myrbetriq) 25 mg PO DAILY 30 days 30 tabs 1RF N30.10 - Interstitial cystitis (chronic) without hematuria, N32.81 - Overactive bladder, R35.1 - Nocturia, R39.15 - Urgency of urination To mirabegron ER (Myrbetriq) 25 mg PO DAILY 90 days 90 tabs 4RF N30.10 - Interstitial cystitis (chronic) without hematuria, N32.81 - Overactive bladder, R35.1 - Nocturia, R39.15 - Urgency of urination Patient Instructions: The patient had an opportunity to ask questions regarding the treatment plan. All questions were answered. Physical exam, labs, and imaging were discussed and reviewed in detail. As well as risks, benefits, and discussion of treatment choices. No major barriers to understanding were identified. The patient expressed understanding and agreement with the above treatment plan. The patient was made aware they should contact our office by phone for worsening of their current condition, the appearance of new symptoms, or with any questions or concerns. Compliance is encouraged with any medications and follow up testing that is ordered. It is a privilege to be allowed the opportunity to participate in? your urological care.? Again, if you have any questions or concerns If you have any questions or concerns please do not hesitate to contact me. The office is [phone]. This note is constructed using voice recognition software. While every effort has been made to ensure accuracy business support professional errors may have been included. Yours sincerely, KASSI Zhang- Coding Level of Care Code Est Pt Level 3 (42683) Diagnoses Flank pain R10.9 Renal calculus, right N20.0 Incontinence R32 Urinary frequency R35.0 CPT Codes Post Residual Void - PVR CPT Code: 50785-Szaw Void Residual by ultrasound ([id number])
== END 2022-12-02 10:22 | disposition home or self-care (01) ==
PROVIDERS: PCP Nurse Practitioner Family; Visit Provider Nurse Practitioner Family
DX: R10.9 Unspecified abdominal pain (principal); N20.0 Calculus of kidney; R32 Unspecified urinary incontinence; R35.0 Frequency of micturition
CPT/HCPCS: 99213

== ENCOUNTER 2022-12-02 09:16 | Outpatient (REF) | payer OTHER, SELFPAY ==
--- NOTE | ~2022-12-02 | XR_ITS ---
EXAMINATION: XR ABDOMEN COMPLETE CLINICAL INDICATION: Reason for Exam N20.0 - Calculus of kidney COMPARISON: Renal ultrasound 09/14/2022 TECHNIQUE: AP view of the abdomen. FINDINGS: Lines or devices: None. Nonobstructive bowel gas pattern. Moderate colonic stool burden. Supine technique limits evaluation for extraluminal air although no secondary findings are appreciated. No abnormal calcifications overlying the expected region of the kidneys or ureters. Focus of heterotopic ossification is noted adjacent to the left greater trochanter. XR/XR KUB IMPRESSION: 1. No abnormal calcifications overlying the expected region of the kidneys or ureters.
== END 2022-12-02 09:17 | disposition home or self-care (01) ==
LOC: HO.XRAY 09:16
PROVIDERS: PCP Nurse Practitioner Family; Visit Provider Nurse Practitioner Family
DX: N20.0 Calculus of kidney (principal); N39.0 Urinary tract infection, site not specified; N39.3 Stress incontinence (female) (male); N32.81 Overactive bladder; R35.1 Nocturia; Z79.899 Other long term (current) drug therapy
CPT/HCPCS: 51798; 74018; 81003; 99212

== ENCOUNTER 2022-12-20 14:44 | Outpatient (AMB) | payer OTHER, SELFPAY ==
--- NOTE | 2022-12-20 15:07 | MHC.OFFVIS ---
Intake Intake Visit Reasons: 2w/KUB(set) Intake Note: Patient is present for follow up urinary frequency/incontinence Urology Medications: Myrbetriq Blood Thinner: none PVR: 86ml's Cutting Inspector Required: No Accompanied by: Self / Same As Patient Allergies No Known Allergies Allergy (Verified 12/21/22 18:21) Medication List - Last Reconciled 12/21/22 by ZAKI Zhang atorvastatin 20 mg PO BEDTIME fenofibrate 54 mg PO DAILY 30 days mirabegron ER (Myrbetriq) 25 mg PO DAILY 90 days omeprazole 20 mg PO DAILY 30 days HPI HPI Comments History of Present Illness Details Eveline is a pleasant 67-year-old female patient of Dr. Murillo. She has a past medical history of stress incontinence, hyperlipidemia, back pain, and nicotine dependence. She presents to the office today for a follow up. Of note, patient was seen approximately 2 weeks ago at which time a KUB was ordered for further assessment and evaluation. These results were reviewed with the patient today. No abnormal calcifications overlying the expected region of the kidneys or ureters. When asked she does report intermittent episodes of right-sided flank pain she otherwise denies any bothersome urinary issues or concerns. She reports to be happy with current voiding parameters on 25 mg of Myrbetriq. She discusses her upcoming appointment tomorrow with risk and compliance analytics director for her annual visit. Discussed at length importance of limiting/quitting cigarette smoking for improvement in urinary symptoms as well as overall health and well-being. In office urinalysis results reviewed with the patient today. She otherwise offers no other issues or concerns at this time. [facility] Medical History Stress incontinence Incontinence Hyperlipidemia Low back pain Surgical History H/O kidney removal Hx of tubal ligation Family History Brother Lung cancer Brain cancer Social History Housing: Apartment Alcohol intake: current Alcohol intake frequency: 0-2 drinks per day Alcohol type: beer Patient Tobacco Use Status: Current everyday Tobacco user Tobacco use type: Cigarette Cigarette Packs Per Day: 1 Cigarettes Per Day: 20 e-Cigarette/Vaping Use: Never Used service: No Current occupational status: retired Sexual orientation: Straight/Heterosexual Gender identity: Female Cognitive needs: No Hearing needs: No Vision needs: No Review of Systems Const Reports no additional complaints Eyes Reports no additional complaints ENT Reports no additional complaints Card Reports no additional complaints Resp Reports no additional complaints GI Reports no additional complaints Reports as per HPI Musc Reports no additional complaints Neuro Reports no additional complaints Psych Reports no additional complaints Endo Reports no additional complaints Trent/Lymph Reports no additional complaints Aller/Immun Reports no additional complaints Physical Exam Const General: cooperative, healthy appearing, comfortable, no acute distress, well developed, alert and awake Orientation/consciousness: patient oriented x3 Limitations: no limitations HEENT Head: Yes normal to inspection, Yes normocephalic and Yes atraumatic Ears: hearing grossly normal bilaterally Eyes General: appearance normal, both eyes and all related structures Neck Neck: Yes normal visual inspection and Yes trachea midline Chest Chest palpation & inspection: normal inspection of the chest Resp Effort & Inspection: normal respiratory effort and able to speak in complete sentences Cardio Rate: regular rate GI Inspection: Yes normal to inspection General: Yes no CVA tenderness Back/Spine/Pelvis Back: no CVA tenderness Skin General skin exam: no rashes or lesions noted Neuro General: patient oriented x3 Extrem General: Yes normal to inspection Psych Appearance: grossly normal and well kempt Mental Status: mental status grossly normal Speech and movement: Normal speech and movement present and Clear speech present Affect: normal affect Attitude: cooperative Thought process: Normal thought process present Thought content: Normal thought content present Insight: Good insight present (Psych) Judgement: Good judgement present (Psych) Office Procedures Post Void Residual Post Residual Void Post Void Residual (PVR): 86 [id number] Void Residual by ultrasound Results AMB Urinalysis, Automated UA Leukoctes 15 Mendy/uL Last Edit by [employer] on 12/20/22 15:36 UA Nitrite Negative Last Edit by [employer] Prabhakar on 12/20/22 15:36 UA Urobilinogen 0.2 mg/dL Last Edit by [employer] on 12/20/22 15:36 UA Protein 0 mg/dL Last Edit by [employer] on 12/20/22 15:36 UA pH 6.5 Last Edit by [employer] on 12/20/22 15:36 UA Blood 0 Jayden/uL Last Edit by Rere Radford on 12/20/22 15:36 UA Specific [place] 1.015 Last Edit by Rere Radford on 12/20/22 15:36 UA Ketone Negative Last Edit by Rere Radford on 12/20/22 15:36 UA Bilirubin 0 mg/dL Last Edit by Rere Radford on 12/20/22 15:36 UA Glucose 0 mg/dL Last Edit by Rere Radford on 12/20/22 15:36 Results Reviewed Results Reviewed: Laboratory Last Values Urine pH (Auto) 6.5 12/20/22 15:08 Specific [place] (Auto) 1.015 12/20/22 15:08 Urine Protein (Auto) 0 mg/dL 12/20/22 15:08 Glucose (UA)(Auto) 0 mg/dL 12/20/22 15:08 Urine Ketones (Auto) Negative 12/20/22 15:08 Urine Blood (Auto) 0 Jayden/uL 12/20/22 15:08 Urine Nitrite (Auto) Negative 12/20/22 15:08 Urine Bilirubin (Auto) 0 mg/dL 12/20/22 15:08 Urine Urobilinogen (Auto) 0.2 mg/dL 12/20/22 15:08 Leukocyte Esterase (Auto) 15 Mendy/uL 12/20/22 15:08 Date of Service: 12/02/22 EXAMINATION: XR ABDOMEN COMPLETE FINDINGS: Lines or devices: None. Nonobstructive bowel gas pattern. Moderate colonic stool burden. Supine technique limits evaluation for extraluminal air although no secondary findings are appreciated. No abnormal calcifications overlying the expected region of the kidneys or ureters. Focus of heterotopic ossification is noted adjacent to the left greater trochanter. IMPRESSION: 1. No abnormal calcifications overlying the expected region of the kidneys or ureters. Assessment & Plan Assessment & Plan (1) Stress incontinence: Code(s): N39.3 - Stress incontinence (female) (male) (2) Incontinence: Code(s): R32 - Unspecified urinary incontinence (3) Renal calculus, right: Code(s): N20.0 - Calculus of kidney Plan In office urinalysis results reviewed with the patient today. Recent KUB results reviewed with the patient today; as noted above. Discussed surveillance monitoring Discussed importance of drinking plenty of fluid daily. Continue Myrbetriq as patient reports to be happy with current voiding parameters. Continue adding 1 oz of lemon juice to water daily. Renal ultrasound in 6 months. Follow-up in 6 months with imaging to be completed prior; or sooner with any issues, concerns, and or questions. Orders: Orders AMB Urinalysis Automated 12/20/22 Z13.9 - Encounter for screening, unspecified US renal BI 6 Months N20.0 - Calculus of kidney AMB Post Void Residual by ultrasound 12/20/22 N39.3 - Stress incontinence (female) (male) Patient Instructions: The patient had an opportunity to ask questions regarding the treatment plan. All questions were answered. Physical exam, labs, and imaging were discussed and reviewed in detail. As well as risks, benefits, and discussion of treatment choices. No major barriers to understanding were identified. The patient expressed understanding and agreement with the above treatment plan. The patient was made aware they should contact our office by phone for worsening of their current condition, the appearance of new symptoms, or with any questions or concerns. Compliance is encouraged with any medications and follow up testing that is ordered. It is a privilege to be allowed the opportunity to participate in? your urological care.? Again, if you have any questions or concerns If you have any questions or concerns please do not hesitate to contact me. The office is [phone]. This note is constructed using voice recognition software. While every effort has been made to ensure accuracy bilingual administrative assistant errors may have been included. Yours sincerely, ZAKI Zhang Coding Level of Care Code Est Pt Level 3 (56221) Diagnoses Stress incontinence N39.3 Incontinence R32 Renal calculus, right N20.0 CPT Codes Post Residual Void - PVR CPT Code: 54424-Xntu Void Residual by ultrasound ([id number])
== END 2022-12-20 15:45 | disposition home or self-care (01) ==
PROVIDERS: PCP Nurse Practitioner Family; Visit Provider Nurse Practitioner Family
DX: N39.3 Stress incontinence (female) (male) (principal); N20.0 Calculus of kidney
CPT/HCPCS: 99213

== ENCOUNTER → 2022-12-20 14:44 | Outpatient (BNVA) | payer OTHER, SELFPAY | PROVIDERS: PCP Nurse Practitioner Family; Visit Provider Nurse Practitioner Family | DX: N39.3 Stress incontinence (female) (male) (principal); N20.0 Calculus of kidney | CPT/HCPCS: 51798; 81003; 99212 ==

== ENCOUNTER 2022-12-21 09:45 | Outpatient (AMB) | payer OTHER, SELFPAY ==
[2022-12-21 09:52] VITALS: BP 108/64; BMI 25.4
--- NOTE | 2022-12-21 09:52 | MHC.OFFVIS ---
Intake Vital Signs 12/21/22 09:52 Height 5 ft 4 in Weight 148 lb BMI 25.4 BP 108/64 Intake Visit Reasons: New patient Annual Intake Note: Last pap 5-6 yrs normal hx per pt Cobbler Sole Required: No Heating And Cooling Technician: Heating And Cooling Technician Present (Deidra) Allergies No Known Allergies Allergy (Verified 12/21/22 09:53) Post menopausal: Yes HPI HPI Comments History of Present Illness Details Presenting for annual exam. No complaints. Last Pap/HPV Last Mammogram was in 12/03 was BI-RADS 2 Last Colonoscopy was many years ago, the patient was referred to GI for screening colonoscopy by her PCP Last DEXA scan was in 12/03, no evidence of osteoporosis PFSH Medical History Stress incontinence Incontinence Hyperlipidemia Low back pain Surgical History H/O kidney removal Hx of tubal ligation Family History Brother Lung cancer Brain cancer Social History Housing: Apartment Alcohol intake: current Alcohol intake frequency: 0-2 drinks per day Alcohol type: beer Patient Tobacco Use Status: Current everyday Tobacco user Tobacco use type: Cigarette Cigarette Packs Per Day: 1 Cigarettes Per Day: 20 e-Cigarette/Vaping Use: Never Used service: No Current occupational status: retired Sexually active: Yes Sexual orientation: Straight/Heterosexual Gender identity: Female Cognitive needs: No Hearing needs: No Vision needs: No Female Reproductive History Menstrual Total pregnancies: 6 Full term: 6 Number of Living Children: 6 Date of Mammogram: 11/15/22 Date of last Bone Density Screenin11/15/22 Review of Systems Const All systems reviewed & are unremarkable except as noted in HPI and below Card Reports as per HPI Resp Reports as per HPI GI Reports as per HPI and Reports no additional complaints Reports as per HPI Physical Exam Vital Signs: Last Vital Signs BP 108/64 12/21/22 09:52 BMI result Body Mass Index 25.4 Const General: cooperative, healthy appearing and comfortable Chest Chest palpation & inspection: normal inspection of the chest and normal palpation of entire chest wall Breast/axilla inspection: normal inspection of the breasts and normal inspection of the axillae Breast/axilla palpation: normal palpation of the breasts, normal palpation of the axillae and no axillary lymphadenopathy Resp Effort & Inspection: normal respiratory effort Auscultation: clear to auscultation bilaterally Percussion: percussion normal Cardio Palpation: normal PMI Rate: regular rate Rhythm: regular rhythm Heart sounds: no murmurs and no rubs Peripheral pulses: Peripheral pulses 2+ throughout GI Inspection: Yes normal to inspection Palpation (GI): Soft to palpation, nontender, no guarding, not rigid and No hepatosplenomegaly present Percussion: Yes normal to percussion Auscultation: normal bowel sounds Rectal Exam - Female: deferred General: Yes bladder normal to palpation External Female Exam: No lesion Speculum Exam - Vagina: normal appearance of the vagina, normal palpation, normal vaginal discharge and not erythematous Speculum Exam - Cervix: normal appearance of the cervix and normal palpation Bimanual exam- vagina & uterus: normal bimanual exam, normal palpation, uterine size normal, bladder normal to palpation, consistency normal and normal palpation Bimanual Exam- Adnexa, other: normal adnexae, no masses and no tenderness Assessment & Plan Assessment & Plan (1) Well woman exam: Code(s): Z01.419 - Encounter for gynecological examination (general) (routine) without abnormal findings Plan: Co testing not indicated since the patient 's age is above 65 with no history of abnormal Pap smears last 25 years. Counseled the patient about the recommended dietary allowance of 1200 mg of Calcium & 800 IU of vitamin D. Instructions given the patient to schedule her next screen Mammogram in 12/04. Referred by PCP recently for screening colonoscopy. The patient was instructed to perform monthly self-breast exams and to schedule a 2 week DEXA scan follow-up appointment and an annual exam in a year; All questions answered and the patient verbalized understanding. Coding Level of Care Code New Pt Prev Care >65yr (62797) Diagnoses Well woman exam Z01.419
== END 2022-12-21 10:14 | disposition home or self-care (01) ==
LOC: HO.HWS 09:45
PROVIDERS: PCP Nurse Practitioner Family; Visit Provider Obstetrics & Gynecology
DX: Z01.419 Encounter for gynecological examination (general) (routine) without abnormal findings (principal)
CPT/HCPCS: 99387; 99397

== ENCOUNTER → 2022-12-21 09:45 | Outpatient (BNVA) | payer OTHER, SELFPAY | PROVIDERS: PCP Nurse Practitioner Family; Visit Provider Obstetrics & Gynecology ==

== ENCOUNTER → 2023-01-30 13:46 | Outpatient (BNVA) | payer OTHER, SELFPAY | PROVIDERS: PCP Nurse Practitioner Family; Visit Provider Physician Assistant ==

== ENCOUNTER 2023-02-23 09:24 | Outpatient (AMB) | payer OTHER, SELFPAY ==
[2023-02-23 09:36] VITALS: BP 128/60; PULSE 87; RESP 13; TEMP 36.4; O2SAT 97; BMI 25.1
--- NOTE | 2023-02-23 09:36 | MHC.PC.OV ---
Vital Signs 02/23/23 09:36 Height 5 ft 4 in Weight 146 lb 6 oz BMI 25.1 BP 128/60 Blood Pressure Location Rt brachial Position Sitting Respiration 13 Pulse 87 Pulse Source Pulse Oximeter Temp 97.6 F Temp Source Temporal Artery Scan Pulse Oximetry (%) 97 Oxygen Delivery Method Room Air Intake Visit Reasons: f/u Hyperlipidemia Intake Note: Patient states that her left leg has been giving her trouble. Patient states that she has pain in back where her kidney is and it will not go away. Food Service Technician Required: No Accompanied by: Self / Same As Patient Allergies No Known Allergies Allergy (Verified 02/23/23 10:19) Medication List - Last Reconciled 02/23/23 by Waldo Murillo CNP atorvastatin 20 mg PO BEDTIME bisacodyl (Dulcolax (bisacodyl)) 20 mg (4 x 5 mg) PO ONCE 1 day fenofibrate 54 mg PO DAILY 30 days mirabegron ER (Myrbetriq) 25 mg PO DAILY 90 days omeprazole 20 mg PO DAILY 30 days polyethylene glycol 3350 (Miralax) 238 grams PO ONCE 1 day Tobacco use date assessed: 06/21/22 Fall risk assessment: No Falls in past year Last assessed Fall Risk: 02/23/23 Dental Screening Dental Screen Date: 02/23/23 Did you have a dental visit in the last 12 months?: No Did you have a dental problem in the last 6 months where you did not have access to dental care?: No Was dental information given to patient?: Yes HPI HPI Comments History of Present Illness Details 67-year-old female presents for hyperlipidemia follow-up She is on atorvastatin and fenofibrate She admits to taking her medications as prescribed without adverse reactions She reports intermittent pain to her entire right leg. She notes that the pain feels like someone is poking me with needles. She notes that the pain has been ongoing for the past 3 months. She also reports right flank pain which has been ongoing for the past 3 months, worst at night. GI ordered a KUB in November which was unremarkable. She denies fall, injury, or trauma. No symptoms She notes that she quit smoking about a month ago She request the flu vaccine [facility] Medical History Stress incontinence Incontinence Hyperlipidemia Low back pain Surgical History H/O kidney removal Hx of tubal ligation Family History Brother Lung cancer Brain cancer Social History Housing: Apartment Alcohol intake: current Alcohol intake frequency: 0-2 drinks per day Alcohol type: beer Patient Tobacco Use Status: Former Tobacco user Tobacco use type: Cigarette Cigarette Packs Per Day: 1 Cigarettes Per Day: 20 e-Cigarette/Vaping Use: Never Used service: No Current occupational status: retired Sexual orientation: Straight/Heterosexual Gender identity: Female Cognitive needs: No Hearing needs: No Vision needs: No Questionnaire Thrive Questionnaire Date Thrive assessed: 04/28/22 ERIK-7 AMB Questionnaire ERIK-7 Date ERIK - 7 assessed: 04/28/22 Source: Developed by Drs. Lazaro Meeks, Ania Gaytan, Juan Zhang and colleagues, with an educational donta from [employer]. Review of Systems Const Details: Const Denies chills, Denies fatigue, Denies fever(s), Denies headache(s) and Denies weakness ENT Denies dizziness and Denies headache(s) Card Denies chest pain, Denies lightheadedness, Denies dyspnea and Denies other (Palpitations) Resp Denies cough, Denies dyspnea, Denies wheezing and Denies other ( shortness of breath) GI Denies abdominal pain, Denies melena, Denies hematochezia, Denies change in bowel habits, Denies dyspepsia and Denies nausea Denies hematuria and Denies dysuria Musc Reports as per HPI Skin/Breast Denies rash, Denies unusual bruising and Denies wounds Neuro Denies abnormal gait, Denies dizziness, Denies headache(s), Denies memory loss, Denies numbness, Denies Sensory deficit (Neuro), Denies tingling and Denies weakness Psych Denies anxiety, Denies depression, Denies memory loss Endo Denies cold intolerance, Denies fatigue, Denies heat intolerance, Denies polydipsia and Denies polyuria Aller/Immun Denies wheezing Physical exam (Primary Care) Vital Signs: Last Vital Signs Temp 97.6 F 02/23/23 09:36 Pulse 87 12/14/23 09:36 Resp 13 02/23/23 09:36 BP 128/60 02/23/23 09:36 Pulse Ox 97 02/23/23 09:36 Oxygen Delivery Method Room Air 02/23/23 09:36 BMI result Body Mass Index 25.1 Tobacco/Smoking Status: Tobacco use Status Tobacco use date assessed 06/21/22 02/23/23 09:43 Patient Tobacco Use Status Former Tobacco user 02/23/23 09:43 Tobacco use type Cigarette 02/23/23 09:43 e-Cigarette/Vaping Use Never Used 02/23/23 09:43 Thrive Assessment: Date of Thrive Assessment Date Thrive assessed 04/28/22 02/23/23 09:43 Const Other: General: no acute distress and well developed Nutritional Appearance: well nourished Orientation/consciousness: patient oriented x3 HENMT Head: Yes normocephalic and Yes atraumatic Eyes General: appearance normal, both eyes and all related structures Pupils: Equal, round and reactive pupils present EOM: EOMs intact bilaterally Resp Effort & Inspection: normal respiratory effort Auscultation: clear to auscultation bilaterally Cardio Rate: regular rate Rhythm: regular rhythm Heart sounds: S1 normal heart sound present, S2 normal heart sound present, no gallops, no murmurs and no rubs GI Palpation (GI): No Abdominal aortic bruit present, Soft to palpation, nontender, No hepatosplenomegaly present and No Rebound tenderness present Auscultation: normal bowel sounds General: Yes no CVA tenderness Back/Spine/Pelvis Back: no CVA tenderness Cervical Spine: cervical ROM normal and No Cervical spine tenderness Thoracic/Lumbar Spine: thoraco-lumbar ROM normal, No pain with thoraco-lumbar ROM, No thoracic spinal tenderness and No lumbar spinal tenderness Extrem General: Yes normal to inspection, No edema and No calf tenderness Skin General: warm and dry. Normal skin color. Normal skin turgor Neuro General: patient oriented x3, gait normal and no focal neuro deficit Cranial nerves: Yes Equal, round and reactive pupils present Cognition (Neuro): normal cognition Gait exam (Neuro): Normal gait present Sensory Exam: No Sensory deficit (Neuro) Psych Appearance: grossly normal Affect: normal affect Attitude: cooperative Thought process: Normal thought process present Assessment and Plan Assessment & Plan (1) Hyperlipidemia: Code(s): E78.5 - Hyperlipidemia, unspecified Qualifiers: Hyperlipidemia type: other hyperlipidemia Qualified Code(s): E78.49 - Other hyperlipidemia Plan: Recent total cholesterol and LDL levels a slightly elevated than previous, 216 and 141 respectively Will increase atorvastatin to 40 mg daily. Take as prescribed Continue to take fenofibrate as prescribed Advised to limit foods high in saturated fat and avoid foods high trans fat Routine exercise encouraged Will recheck lipid panel in 2 months. Advised to fast for 10-12 hours, may drink water only, and get blood work done before her next visit Follow-up in 2 months for an extended physical exam and hyperlipidemia Return sooner with symptoms or concerns Verbalized understanding and agreed with treatment plan Influenza vaccine administered by the nurse (2) Right flank pain: Code(s): R10.9 - Unspecified abdominal pain Plan: Reports right flank pain which has been ongoing for the past 3 months, worst at night. No fall, injury, trauma. No symptoms KUB in November was unremarkable No CVA tenderness Urinalysis/culture ordered. Will make changes as needed Warm compresses encouraged May take Tylenol as needed for pain or discomfort Follow-up with worsening or new symptoms Verbalized understanding and agreed with treatment plan (3) Pain of left lower extremity: Code(s): M79.605 - Pain in left leg Plan: Reports intermittent pain to her entire right leg. She notes that the pain feels like someone is poking me with needles. She notes that the pain has been ongoing for the past 3 month Likely neuropathy Gabapentin ordered. Take as prescribed. Advised to avoid driving after taking the medication due to adverse reaction of drowsiness Warm/cool compresses and stretching encouraged Follow-up with worsening or new symptoms Verbalized understanding and agreed with treatment plan Orders: Orders UA CC w/rflx Micro + Cult Today R10.9 - Unspecified abdominal pain Lipid Panel 2 Months E78.5 - Hyperlipidemia, unspecified Medications: New gabapentin 200 mg (2 x 100 mg) PO BEDTIME 30 caps 1RF atorvastatin 40 mg PO BEDTIME 30 tabs 3RF 30 days Discontinued atorvastatin Discontinued Reason: Doctor's Order 20 mg PO BEDTIME 30 tabs 3RF Coding Level of Care Code Est Pt Level 3 (40999) Diagnoses Other hyperlipidemia E78.49 Hyperlipidemia type: other hyperlipidemia Right flank pain R10.9 Pain of left lower extremity M79.605
== END 2023-02-23 10:45 | disposition home or self-care (01) ==
PROVIDERS: PCP Nurse Practitioner Family; Visit Provider Nurse Practitioner Family
DX: E78.49 Other hyperlipidemia (principal); R10.9 Unspecified abdominal pain; M79.605 Pain in left leg; Z23 Encounter for immunization
CPT/HCPCS: 90471; 90686; 99213

== ENCOUNTER 2023-02-23 10:47 | Outpatient (REF) | payer OTHER, SELFPAY ==
[2023-02-23 14:39] LABS: Appearance Urine Clear; Color Urine Yellow; Glucose Urine UA Negative (Negative); Leukocyte Esterase Urine Trace (Negative); Nitrite Urine Negative (Negative); PH 6.5 (5.0-9.0); UMIC TRIGGER UACC YES; Urine Blood Negative (Negative); Urine Ketones Negative (Negative); Urine Protein Negative (Neg-Trace)
[2023-02-23 14:41] LABS: Bacteria Urine 3+ (None Seen); Hyaline Casts Urine 0-2 /LPF (0-2); RBC Urine 0-2 /HPF (0-2); Squamous Epithelial Cell Urine 0-2 /HPF (0-2); WBC Urine 0-5 /HPF (0-5)
== END 2023-02-23 10:48 | disposition home or self-care (01) ==
LOC: HO.WFDLDS 10:47
PROVIDERS: Visit Provider Nurse Practitioner Family
DX: R10.9 Unspecified abdominal pain (principal)
CPT/HCPCS: 81001

== ENCOUNTER 2023-06-05 14:25 | Outpatient (REF) | payer OTHER, MEDICAID, SELFPAY ==
--- NOTE | ~2023-06-05 | US_ITS ---
EXAMINATION: US RETROPERITONEAL LIMITED (RENAL ONLY) CLINICAL INFORMATION: Calculus of kidney. COMPARISON: Ultrasound kidneys and bladder 09/14/2022. TECHNIQUE: Real-time imaging of the solitary right kidney. FINDINGS: RIGHT KIDNEY: 10.8 x 4.8 x 6.9 cm (SAG x AP x TRV). The kidney is normal in size, contour, and echogenicity. Renal cortical thickness is normal. Punctate cortical calcifications identified. Mild renal pelvic collecting system fullness again seen but no hydronephrosis. No obstructing calculi or focal parenchymal lesions. LEFT KIDNEY: Surgically absent. Examination of the left renal fossa did not reveal any sonographic abnormality. US/US renal BI IMPRESSION: Solitary right kidney with redemonstration mild intrarenal collecting system fullness. No measurable or obstructing calculi.
== END 2023-06-05 14:26 | disposition home or self-care (01) ==
LOC: HO.US 14:25
PROVIDERS: PCP Nurse Practitioner Family; Visit Provider Nurse Practitioner Family
DX: N20.0 Calculus of kidney (principal)
CPT/HCPCS: 76775

== ENCOUNTER 2023-06-12 08:39 | Outpatient (REF) | payer OTHER, MEDICAID, SELFPAY ==
[2023-06-12 11:50] LABS: Cholesterol 151 mg/dL (<200); HDL Cholesterol 46 mg/dL (>40); LDL Cholesterol Calculated 90 mg/dL (<100); Triglycerides 76 mg/dL (<150)
== END 2023-06-12 08:40 | disposition home or self-care (01) ==
LOC: HO.WFDLDS 08:39
PROVIDERS: Visit Provider Nurse Practitioner Family
DX: E78.5 Hyperlipidemia, unspecified (principal)
CPT/HCPCS: 36415; 80061

== ENCOUNTER 2023-06-13 10:27 | Outpatient (AMB) | payer OTHER, SELFPAY ==
[2023-06-13 10:40] VITALS: BP 134/76; PULSE 92; RESP 13; TEMP 36.6; O2SAT 98; BMI 25.9
--- NOTE | 2023-06-13 10:40 | A.OFFPC_ITS ---
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 Accompanied by: Self / Same As Patient Allergies No Known Allergies Allergy (Verified 06/13/23 11:14) Medication List - Last Reconciled 06/13/23 by Waldo Murillo CNP atorvastatin 40 mg PO BEDTIME 30 days bisacodyl (Dulcolax (bisacodyl)) 20 mg (4 x 5 mg) PO ONCE 1 day fenofibrate 54 mg PO DAILY 30 days gabapentin 200 mg (2 x 100 mg) PO BEDTIME mirabegron ER (Myrbetriq) 25 mg PO DAILY 90 days omeprazole 20 mg PO DAILY 30 days polyethylene glycol 3350 (Miralax) 238 grams PO ONCE 1 day Tobacco use date assessed: 06/13/23 Fall risk assessment: No Falls in past year Last assessed Fall Risk: 06/13/23 Dental Screening Dental Screen Date: 06/13/23 Did you have a dental visit in the last 12 months?: Yes Did you have a dental problem in the last 6 months where you did not have access to dental care?: No Was dental information given to patient?: Patient has dentist HPI HPI Comments History of Present Illness Details 67-year-old female presents for an exten ded physical exam and hyperlipidemia follow-up She admits to taking her medications as prescribed without adverse reactions She notes that she has been feeling depressed and attributes that to her son was incarceration 2 months ago. She is not able to do the physical work her son is requesting while in [facility] or money to get things done or bail him out. She also reports poor quality of sleep since her boyfriend ended their relationship 3 months. She sleeps an average of 5-6 hours nightly. She denies lack of pleasure or interest in activities, denies hopelessness, helplessness, SI/HI She notes that her last colonoscopy was 3 years ago and she gets it done every 5 years Last mammogram was on 11/15/2022: Normal Last DEXA scan was on 11/15/2022: Normal She has colonoscopy schedule with [facility] in August, She has pap smear test scheduled with [facility] in December, She has a dental appointment in October, She never receives the shingrex or PNA vaccines She is up-to-date on the influenza vaccine Her last LDCT scan from [facility] was on 12/08/2022: Right lung: Faint subpleural 3 mm nodule in the right upper lobe, stable. No new nodules. Left lung: Stable 3 mm nodule left upper lobe. No new nodule She smokes 5 cigarette daily and has been smoking for the past 50 years. She drinks alcohol occasionally. No recreational drugs She is followed by pulmonology and Urology [facility] Medical History Stress incontinence Incontinence Hyperlipidemia Low back pain Surgical History H/O kidney removal Hx of tubal ligation Family History Brother Lung cancer Brain cancer Social History Housing: Apartment Alcohol intake: current Alcohol intake frequency: 0-2 drinks per day Alcohol type: beer Patient Tobacco Use Status: Current everyday Tobacco user Tobacco use type: Cigarette Cigarette Packs Per Day: 0.25 Cigarettes Per Day: 5 Years Smoked: 50 e-Cigarette/Vaping Use: Never Used service: No Current occupational status: retired Sexual orientation: Straight/Heterosexual Gender identity: Female Cognitive needs: No Hearing needs: No Vision needs: No Questionnaire PHQ-9 Over the last 2 weeks, how often have you been bothered by any of the following problems? 1. Little interest or pleasure in doing things: several days 2. Feeling down, depressed, or hopeless: more than half the days 3. Trouble falling or staying asleep, or sleeping too much: nearly every day 4. Feeling tired or having little energy: nearly every day 5. Poor appetite or overeating: not at all 6. Feeling bad about yourself - or that you are a failure or have let yourself or your family down: several days 7. Trouble concentrating on things, such as reading the newspaper or watching television: several days 8. Moving or speaking so slowly that other people could have noticed. Or the opposite - being so fidgety or restless that you have been moving around a lot more than usual: not at all 9. Thoughts that you would be better off or of hurting yourself in some way: not at all Total score: 11 Depression Screening Interpretation: Positive Depression Screening Follow-up: Existing condition and Declines treatment Depression Screening Done: Yes 83141 - PHQ-9 Billing: Yes Source: Developed by Drs. Lazaro Meeks, Ania Gaytan, Juan Zhang and colleagues, with an educational donta from [email or web address]. Thrive Questionnaire Date Thrive assessed: 06/13/23 I am a: Patient What is your living situation today?: I have a steady place to live Within the past 12 months, did the food you bought not last and you didn't have the money to get more?: Never true Within the past 12 months, did you worry whether your food would run out before you got money to buy more?: Never true Do you have trouble paying for medicines?: No Do you have trouble getting transportation to medical appointments?: No Do you have trouble paying your heating and electricity bill?: No Do you have trouble taking care of your child, family member or friend?: No Do you have trouble with day-to-day activities such as bathing, preparing meals, shopping, managing finances, etc.?: No Are you currently unemployed and looking for a job?: No Are you interested in more education?: No Please select the resources that you would like help with: None Currently or been in a relationship where the following occur: no concerns reported THRIVE Score: 0 AUDIT C Alcohol Use Questionnaire (AUDIT-C) 1. How often do you have a drink containing alcohol?: Monthly or less 2. How many drinks containing alcohol do you have on a typical day when you are drinking?: 1 or 2 3. How often do you have six or more drinks on one occasion?: Never Total Score: 1 ERIK-7 AMB Questionnaire ERIK-7 Date ERIK - 7 assessed: 06/13/23 Feeling nervous, anxious, or on edge: 1 = Several days Not being able to stop or control worryin = Several days Worrying too much about different things: 1 = Several days Trouble relaxin = Not at all Being so restless that it is hard to sit still: 0 = Not at all Becoming easily annoyed or irritable: 1 = Several days Feeling afraid as if something awful might happen: 0 = Not at all Total ERIK-7 score (0-4 normal; 5-9 mild; 10-14 moderate; 15-21 severe): 4 Source: Developed by Drs. Lazaro Meeks, Ania Gaytan, Juan Zhang and colleagues, with an educational donta from [email or web address]. ERIK-7 Assessment Billing ERIK-7 Assessment Tool: ERIK-7 Assessment 80056 Review of Systems Const Details: Denies chills, Denies fatigue, Denies fever(s), Denies headache(s) and Denies weakness HEENT Denies change in vision, Denies dizziness, Denies headache(s), Denies hearing loss, Denies nasal congestion, Denies sinus pain, Denies sinus pressure and Denies sore throat Card Denies chest pain, Denies lightheadedness, Denies dyspnea and Denies other (palpitations) Resp Denies cough, Denies dyspnea and Denies wheezing GI Denies abdominal pain, Denies melena, Denies hematochezia, Denies change in bowel habits, Denies dyspepsia and Denies nausea Denies hematuria and Denies dysuria Musc Denies abnormal gait, Denies myalgias, Denies arthralgias, Denies numbness and Denies tingling Skin/Breast Denies rash, Denies unusual bruising and Denies wounds Neuro Denies abnormal gait, Denies dizziness, Denies headache(s), Denies memory loss, Denies numbness, Denies Sensory deficit (Neuro), Denies tingling and Denies weakness Psych Denies anxiety, Denies depression and Denies memory loss Endo Denies cold intolerance, Denies fatigue, Denies heat intolerance, Denies polydipsia and Denies polyuria Trent/Lymph Denies easy bleeding and Denies easy bruising Aller/Immun Denies wheezing Physical exam (Primary Care) Vital Signs: Last Vital Signs Temp 97.8 F 06/13/23 10:40 Pulse 92 06/13/23 10:40 Resp 13 06/13/23 10:40 BP 134/76 06/13/23 10:40 Pulse Ox 98 06/13/23 10:40 Oxygen Delivery Method Room Air 06/13/23 10:40 BMI result Body Mass Index 25.9 Tobacco/Smoking Status: Tobacco use Status Tobacco use date assessed 06/13/23 06/13/23 10:47 Patient Tobacco Use Status Current everyday Tobacco 06/13/23 10:47 Tobacco use type Cigarette 06/13/23 10:47 e-Cigarette/Vaping Use Never Used 06/13/23 10:47 PHQ-9: PHQ-9 Score PHQ-9: Total score 11 06/13/23 11:47 Depression Screening Interpretation: Positive Depression Screening Follow-up: Existing condition and Declines treatment Thrive Assessment: Date of Thrive Assessment Date Thrive assessed 06/13/23 06/13/23 10:56 Currently or been in a relationship where the following occur: no concerns reported Const Other: General: no acute distress, well developed, alert and awake Nutritional Appearance: well nourished Orientation/consciousness: patient oriented x3 HENMT Head: Yes normocephalic and Yes atraumatic Ears: hearing grossly normal bilaterally and TM's normal bilaterally General nose exam: Normal external nose present and Normal nares present Mouth: Normal oral and palatal mucosa present and moist mucous membranes Teeth and gingiva: dentition normal Throat: Yes oropharynx normal Eyes Pupils: Equal, round and reactive pupils present and Pupil accommodation reflex normal EOM: EOMs intact bilaterally Neck Neck: Yes normal visual inspection, Yes no lymphadenopathy and Yes trachea midline Thyroid: Thyroid normal Carotids: no bruits Lymphatic: no lymphadenopathy noted Chest Chest palpation & inspection: normal inspection of the chest Resp Effort & Inspection: normal respiratory effort Auscultation: clear to auscultation bilaterally Cardio Rate: regular rate Rhythm: regular rhythm Heart sounds: S1 normal heart sound present, S2 normal heart sound present, no gallops, no murmurs and no rubs Bruits: no abdominal aortic bruits and no carotid bruits GI Palpation (GI): No Abdominal aortic bruit present, Soft to palpation, nontender, No hepatosplenomegaly present and No Rebound tenderness present Auscultation: normal bowel sounds General: Yes no CVA tenderness Back/Spine/Pelvis Back: no CVA tenderness Cervical Spine: cervical ROM normal and No Cervical spine tenderness Thoracic/Lumbar Spine: thoraco-lumbar ROM normal, No pain with thoraco-lumbar ROM, No thoracic spinal tenderness and No lumbar spinal tenderness Skin General: warm and dry. Normal skin color. Normal skin turgor Lesions: no lesions Rashes: no rashes Trauma: no lacerations or abrasions Wounds: no wounds Nails: normal Neuro General: patient oriented x3, gait normal and CN's II-XI intact bilaterally Cranial nerves: Yes Equal, round and reactive pupils present Cognition (Neuro): normal cognition Gait exam (Neuro): Normal gait present Motor exam (neuro): 5/5 motor strength present throughout Sensory Exam: No Sensory deficit (Neuro) Deep tendon reflexes (DTR's): Right patellar reflex intensity grade: 2+ and Left patellar reflex intensity grade: 2+ Extrem General: Yes normal to inspection, No edema and No calf tenderness Psych Appearance: grossly normal Affect: normal affect Attitude: cooperative Thought process: Normal thought process present Assessment and Plan Assessment & Plan (1) Physical exam, annual: Code(s): Z00.00 - Encounter for general adult medical examination without abnormal findings Plan: No significant physical restrictions or limitations noted Continue current treatment regimen Healthy diet and routine exercise encouraged Follow-up with pulmonology and Urology as planned Return with symptoms or concerns Verbalized understanding and agreed with treatment plan (2) Hyperlipidemia: Code(s): E78.5 - Hyperlipidemia, unspecified Qualifiers: Hyperlipidemia type: other hyperlipidemia Qualified Code(s): E78.49 - Other hyperlipidemia Plan: Recent lipid panel level is normal Continue to take atorvastatin 40 mg and fenofibrate 54 mg daily Advised to limit foods high in saturated fat and avoid foods high in trans fat Routine exercise encouraged Will recheck lipid panel in 6 months. Advised to fast for 10-12 hours, may drink water only and get blood work done before her next visit Verbalized understanding and agreed with treatment plan (3) Smoking 1/2 pack a day or less: Code(s): F17.210 - Nicotine dependence, cigarettes, uncomplicated Plan: She currently smokes 5 cigarettes daily She notes that she has been using nicotine lozenges from her health insurance Instructed on the health risks and complications of cigarette smoking and encouraged to cease smoking (4) Depression: Code(s): F32.A - Depression, unspecified Plan: Reports depressive symptoms which she attributes to issues surrounding her son currently being incarcerated and her boyfriend and in her relationship No SI/HI Declines medication treatment at this time Healthy diet and routine exercise encouraged Advised to inform her PCP if she changes her mind on medication treatment Follow-up with worsening or new symptoms Verbalized understanding and agreed with treatment plan (5) Vaccine counseling: Code(s): Z71.85 - Encounter for immunization safety counseling Plan: Instructed on the importance of vaccinations and encouraged to get vaccinated for shingles and pneumonia. She may get these vaccines from the local pharmacy Verbalized understanding and agreed with plan Coding Level of Care Code Est Pt Prev Care >65y(12619) Diagnoses Physical exam, annual Z00.00 Other hyperlipidemia E78.49 Hyperlipidemia type: other hyperlipidemia Smoking 1/2 pack a day or less F17.210 Depression F32.A Vaccine counseling Z71.85 Additional Codes ERIK-7 Assessment Billing - ERIK-7 Assessment Tool: ERIK-7 Assessment 13139 ([id number])
== END 2023-06-13 11:42 | disposition home or self-care (01) ==
PROVIDERS: PCP Nurse Practitioner Family; Visit Provider Nurse Practitioner Family
DX: Z00.00 Encounter for general adult medical examination without abnormal findings (principal); E78.49 Other hyperlipidemia; F17.210 Nicotine dependence, cigarettes, uncomplicated; F32.A Depression, unspecified; Z71.85 Encounter for immunization safety counseling
CPT/HCPCS: 99397

== ENCOUNTER 2023-06-21 14:50 | Outpatient (AMB) | payer OTHER, SELFPAY ==
--- NOTE | 2023-06-21 15:33 | MHC.OFFVIS ---
Intake Intake Visit Reasons: 6m/US(set) Intake Note: Patient is present for follow up kidney stone, incontinence, and ultrasound results Imagin06/05/23 Urology Medications: Myrbetriq Blood Thinner: none PVR: 0ml's Immigration Law Specialist Required: No Accompanied by: Self / Same As Patient Allergies No Known Allergies Allergy (Verified 06/21/23 21:11) Medication List - Last Reconciled 06/21/23 by ZAKI Zhang atorvastatin 40 mg PO BEDTIME 30 days bisacodyl (Dulcolax (bisacodyl)) 20 mg (4 x 5 mg) PO ONCE 1 day fenofibrate 54 mg PO DAILY 30 days gabapentin 200 mg (2 x 100 mg) PO BEDTIME mirabegron ER (Myrbetriq) 25 mg PO DAILY 90 days omeprazole 20 mg PO DAILY 30 days polyethylene glycol 3350 (Miralax) 238 grams PO ONCE 1 day HPI HPI Comments History of Present Illness Details Eveline is a pleasant 67-year-old female patient of Dr. Murillo. She has a past medical history of stress incontinence, hyperlipidemia, back pain, and nicotine dependence. She presents to the office today for a follow up of her nephrolithiasis, solitary kidney, and mixed urinary incontinence. In discussion with the patient today she reports to be doing and feeling well. She discusses continuing to work on limiting/quitting her cigarette smoking. She reports being down to proximally 5 cigarettes per day. Recent renal imaging results reviewed with the patient today. Right kidney with punctate cortical calcifications identified. No hydronephrosis no calculi or parenchymal lesions. Left kidney is surgically absent. Examination of the left renal fossa did not reveal any sonographic abnormality. She continues to report to be happy with her current voiding parameters on 25 mg of Myrbetriq daily. She does report infrequent episodes of incontinence however does not find this bothersome as she feels they are infrequent. Discussed at length importance of limiting/quitting cigarette smoking for improvement in urinary symptoms as well as overall health and well-being. In office urinalysis results reviewed with the patient today. PVR 0 mL. When asked she denies urinary urgency, urinary frequency, nocturia, hematuria, dysuria, foul smelling urine, changes to urinary stream, flank pain, fever, and or chills. She otherwise offers no other issues or concerns at this time. PFSH Medical History Stress incontinence Incontinence Hyperlipidemia Low back pain Surgical History H/O kidney removal Hx of tubal ligation Family History Brother Lung cancer Brain cancer Social History Housing: Apartment Alcohol intake: current Alcohol intake frequency: 0-2 drinks per day Alcohol type: beer Patient Tobacco Use Status: Current everyday Tobacco user Tobacco use type: Cigarette Cigarette Packs Per Day: 0.25 Cigarettes Per Day: 5 Years Smoked: 50 e-Cigarette/Vaping Use: Never Used service: No Current occupational status: retired Sexual orientation: Straight/Heterosexual Gender identity: Female Cognitive needs: No Hearing needs: No Vision needs: No Review of Systems Const Reports no additional complaints Eyes Reports no additional complaints ENT Reports no additional complaints Card Reports as per HPI Resp Reports no additional complaints GI Reports no additional complaints Reports as per HPI Musc Reports as per HPI Neuro Reports no additional complaints Psych Reports no additional complaints Endo Reports no additional complaints Trent/Lymph Reports no additional complaints Aller/Immun Reports no additional complaints Physical Exam Const General: cooperative, healthy appearing, comfortable, no acute distress, well developed, alert and awake Orientation/consciousness: patient oriented x3 Limitations: no limitations HEENT Head: Yes normal to inspection, Yes normocephalic and Yes atraumatic Ears: hearing grossly normal bilaterally Eyes General: appearance normal, both eyes and all related structures Neck Neck: Yes normal visual inspection and Yes trachea midline Chest Chest palpation & inspection: normal inspection of the chest Resp Effort & Inspection: normal respiratory effort and able to speak in complete sentences Cardio Rate: regular rate GI Inspection: Yes normal to inspection General: Yes no CVA tenderness Back/Spine/Pelvis Back: no CVA tenderness Skin General skin exam: no rashes or lesions noted Neuro General: patient oriented x3 Extrem General: Yes normal to inspection Psych Appearance: grossly normal and well kempt Mental Status: mental status grossly normal Speech and movement: Normal speech and movement present and Clear speech present Affect: normal affect Attitude: cooperative Thought process: Normal thought process present Thought content: Normal thought content present Insight: Fair insight present (Psych) Judgement: Fair judgement present (Psych) Office Procedures Post Void Residual Post Residual Void Post Void Residual (PVR): 0 [id number] Void Residual by ultrasound Results AMB Urinalysis, Automated UA Leukoctes 0 Mendy/uL Last Edit by Heapkay Radford on 06/21/23 15:56 UA Nitrite Negative Last Edit by Pact Fitnesstamie on 06/21/23 15:56 UA Urobilinogen 0.2 mg/dL Last Edit by Pact Fitnesstamie on 06/21/23 15:56 UA Protein 0 mg/dL Last Edit by Survata on 06/21/23 15:56 UA pH 6.0 Last Edit by Survata on 06/21/23 15:56 UA Blood 0 Jayden/uL Last Edit by Survata on 06/21/23 15:56 UA Specific [place] 1.015 Last Edit by Survata on 06/21/23 15:56 UA Ketone Negative Last Edit by Survata on 06/21/23 15:56 UA Bilirubin 0 mg/dL Last Edit by Survata on 06/21/23 15:56 UA Glucose 0 mg/dL Last Edit by Survata on 06/21/23 15:56 Results Reviewed Results Reviewed: Laboratory Last Values Urine pH (Auto) 6.0 06/21/23 15:41 Specific [place] (Auto) 1.015 06/21/23 15:41 Urine Protein (Auto) 0 mg/dL 06/21/23 15:41 Glucose (UA)(Auto) 0 mg/dL 06/21/23 15:41 Urine Ketones (Auto) Negative 06/21/23 15:41 Urine Blood (Auto) 0 Jayden/uL 06/21/23 15:41 Urine Nitrite (Auto) Negative 06/21/23 15:41 Urine Bilirubin (Auto) 0 mg/dL 06/21/23 15:41 Urine Urobilinogen (Auto) 0.2 mg/dL 06/21/23 15:41 Leukocyte Esterase (Auto) 0 Mendy/uL 06/21/23 15:41 Date of Service: 06/05/23 EXAMINATION: US RETROPERITONEAL LIMITED (RENAL ONLY) FINDINGS: RIGHT KIDNEY: 10.8 x 4.8 x 6.9 cm (SAG x AP x TRV). The kidney is normal in size, contour, and echogenicity. Renal cortical thickness is normal. Punctate cortical calcifications identified. Mild renal pelvic collecting system fullness again seen but no hydronephrosis. No obstructing calculi or focal parenchymal lesions. LEFT KIDNEY: Surgically absent. Examination of the left renal fossa did not reveal any sonographic abnormality. IMPRESSION: Solitary right kidney with redemonstration mild intrarenal collecting system fullness. No measurable or obstructing calculi. Assessment & Plan Assessment & Plan (1) Incontinence: Code(s): R32 - Unspecified urinary incontinence (2) Stress incontinence: Code(s): N39.3 - Stress incontinence (female) (male) (3) Solitary kidney, acquired: Code(s): Z90.5 - Acquired absence of kidney (4) Nephrolithiasis: Code(s): N20.0 - Calculus of kidney (5) Smoking 1/2 pack a day or less: Code(s): F17.210 - Nicotine dependence, cigarettes, uncomplicated (6) Renal calculus, right: Code(s): N20.0 - Calculus of kidney Plan In office urinalysis results reviewed with the patient today; as noted above. PVR 0 mL. Recent renal imaging results reviewed with the patient today; as noted above. Patient reports be happy with current voiding parameters on Myrbetriq 25 mg daily; refill provided. She currently denies any bothersome urinary issues or concerns. Continue adding 1 oz of lemon juice to water daily. Discussed and stressed the importance of limiting/quitting nicotine dependence for overall health and well-being. Will obtain renal ultrasound in 6 months. Discussed continuing to drink plenty of water daily. Follow-up in 6 months with imaging to be completed prior; or sooner with any issues, concerns, and or questions. Orders: Orders AMB Urinalysis Automated Today Z13.9 - Encounter for screening, unspecified AMB Post Void Residual by ultrasound Today R32 - Unspecified urinary incontinence US renal BI 6 Months N20.0 - Calculus of kidney, Z90.5 - Acquired absence of kidney Medications: Refilled mirabegron ER (Myrbetriq) 25 mg PO DAILY 90 days 90 tabs 4RF N30.10 - Interstitial cystitis (chronic) without hematuria, N32.81 - Overactive bladder, R35.1 - Nocturia, R39.15 - Urgency of urination Patient Instructions: The patient had an opportunity to ask questions regarding the treatment plan. All questions were answered. Physical exam, labs, and imaging were discussed and reviewed in detail. As well as risks, benefits, and discussion of treatment choices. No major barriers to understanding were identified. The patient expressed understanding and agreement with the above treatment plan. The patient was made aware they should contact our office by phone for worsening of their current condition, the appearance of new symptoms, or with any questions or concerns. Compliance is encouraged with any medications and follow up testing that is ordered. It is a privilege to be allowed the opportunity to participate in? your urological care.? Again, if you have any questions or concerns If you have any questions or concerns please do not hesitate to contact me. The office is [phone]. This note is constructed using voice recognition software. While every effort has been made to ensure accuracy production boring machine operator errors may have been included. Yours sincerely, ZAKI Zhang Coding Level of Care Code Est Pt Level 3 (74034) Diagnoses Incontinence R32 Stress incontinence N39.3 Solitary kidney, acquired Z90.5 Nephrolithiasis N20.0 Smoking 1/2 pack a day or less F17.210 Renal calculus, right N20.0 CPT Codes Post Residual Void - PVR CPT Code: 66875-Kkcy Void Residual by ultrasound ([id number])
== END 2023-06-21 16:09 | disposition home or self-care (01) ==
PROVIDERS: PCP Nurse Practitioner Family; Visit Provider Nurse Practitioner Family
DX: N39.3 Stress incontinence (female) (male) (principal); Z90.5 Acquired absence of kidney; N20.0 Calculus of kidney; F17.210 Nicotine dependence, cigarettes, uncomplicated
CPT/HCPCS: 99213

== ENCOUNTER → 2023-06-21 14:50 | Outpatient (BNVA) | payer OTHER, SELFPAY | PROVIDERS: PCP Nurse Practitioner Family; Visit Provider Nurse Practitioner Family | DX: R32 Unspecified urinary incontinence (principal); N39.3 Stress incontinence (female) (male); N20.0 Calculus of kidney; F17.210 Nicotine dependence, cigarettes, uncomplicated; Z90.5 Acquired absence of kidney | CPT/HCPCS: 51798; 81003; 99212 ==

== ENCOUNTER 2023-08-25 06:53 | Day surgery (SDC) | payer OTHER, SELFPAY ==
--- NOTE | 2023-08-23 10:33 | HO.ANESPROP2 ---
Documented by User: Ronel Brower NP 08/23/23 10:33 HPI - Anesthesia Eval Consult details Narrative: 67yo F for Colonoscopy PMFSH Active Problems Active Problems: All Active Problems Nephrolithiasis (Acute) Solitary kidney, acquired (Acute) Vaccine counseling (Acute) Depression (Acute) Smoking 1/2 pack a day or less (Acute) Pain of left lower extremity (Acute) Right flank pain (Acute) Well woman exam (Acute) Low back pain (Acute) Hyperlipidemia (Acute) Incontinence (Acute) Stress incontinence (Acute) Flank pain (Acute) Colon cancer screening (Acute) Renal calculus, right (Acute) At risk of fracture due to osteoporosis (Acute) Breast cancer screening by mammogram (Acute) Smoking (Acute) Pap smear for cervical cancer screening (Acute) Elevated BP without diagnosis of hypertension (Acute) GERD (gastroesophageal reflux disease) (Acute) Right hand pain (Acute) Urinary frequency (Acute) Physical exam, annual (Acute) Laboratory tests ordered as part of a complete physical exam (CPE) (Acute) Past Medical History Medical History (Updated 08/23/23 @ 12:09 by Jeanne Hardy RN) Renal calculus GERD (gastroesophageal reflux disease) Solitary kidney, acquired Stress incontinence Incontinence Hyperlipidemia Low back pain Family History Family History Brother Lung cancer Brain cancer Surgical History Surgical History H/O kidney removal Hx of tubal ligation Social History Social History Housing: Apartment Alcohol intake: current Alcohol intake frequency: 0-2 drinks per day Alcohol type: beer Patient Tobacco Use Status: Current everyday Tobacco user Tobacco use type: Cigarette Cigarette Packs Per Day: 0.25 Cigarettes Per Day: 10 Years Smoked: 50 e-Cigarette/Vaping Use: Never Used Use of substances other than those prescribed or required for medical reasons: No Are you DNR?: No Advance Directives: No Advance Directives Information Provided: Yes service: No Current occupational status: retired Sexual orientation: Straight/Heterosexual Gender identity: Female Cognitive needs: No Hearing needs: No Vision needs: No Meds Allergies Allergy/AdvReac Type Severity Reaction Status Date / Time No Known Allergies Allergy Verified 08/25/23 07:10 Assessment and Plan Assessment Anesthesia Assessment: Chart Reviewed Documented by User: Simon Borrego MD 08/25/23 07:38 PMFSH Past Medical History Medical History (Updated 08/23/23 @ 12:09 by Jeanne Hardy RN) Renal calculus GERD (gastroesophageal reflux disease) Solitary kidney, acquired Stress incontinence Incontinence Hyperlipidemia Low back pain Family History Family History Brother Lung cancer Brain cancer Family history of problems with anesthesia: No Surgical History Surgical History H/O kidney removal Hx of tubal ligation History of Problems with Anesthesia: No Social History Social History Housing: Apartment Alcohol intake: current Alcohol intake frequency: 0-2 drinks per day Alcohol type: beer Patient Tobacco Use Status: Current everyday Tobacco user Tobacco use type: Cigarette Cigarette Packs Per Day: 0.25 Cigarettes Per Day: 10 Years Smoked: 50 e-Cigarette/Vaping Use: Never Used Use of substances other than those prescribed or required for medical reasons: No Are you DNR?: No Advance Directives: No Advance Directives Information Provided: Yes service: No Current occupational status: retired Sexual orientation: Straight/Heterosexual Gender identity: Female Cognitive needs: No Hearing needs: No Vision needs: No Meds Allergies Allergy/AdvReac Type Severity Reaction Status Date / Time No Known Allergies Allergy Verified 08/25/23 07:10 Exam Airway Mallampati Class: III TM Dist: >3cm Neck ROM: Full Loose/Missing/Broken Teeth: Yes, Upper and Lower Assessment and Plan Assessment Anesthesia Assessment: Anesthesia Plan Discussed Final Anesthetic Review Family History of Problems with Anesthesia: No History of Problems with Anesthesia: No NPO: Yes ASA Class: III Final Preanesthetic Review: No Changes in Pt Med Stat, Meds/Allgs Chart Reviewed, Consent Obtained/Reviewed and Anes Risks/Benef Reviewed Patient Risk: Intermediate Procedure Risk: Low Anesthetic Plan Anesthetic Plan: TIVA Disposition: Standard PACU
[2023-08-23 12:11] VITALS: BMI 25.9
[2023-08-25 07:04] VITALS: BMI 24.9
[2023-08-25 07:24] VITALS: BP 136/73; PULSE 74; RESP 16; TEMP 36.1; O2SAT 95
[2023-08-25] MEDS: Lactated Ringers 1,000 ML 100 ML IVCONT (07:25)
--- NOTE | 2023-08-25 07:27 | MHC.SHP ---
Pre-Procedural Eval Section A - 24 Hr Update-Section A only Date of Service: 08/25/23 The patient is an INPATIENT: No The patient has been examined within 24 hours of the surgical procedure. The History & Physical has been completed within 30 days and I have reviewed it.: No Section B - Complete if H&P > 30 days Chief Complaint: Colon cancer screening Relevant Family History (Specify if Yes): No Relevant Social History: Tobacco Use Present Medications: see Short Stay Collaborative assessment Medical History: Significant History (Stress incontinence Incontinence Hyperlipidemia Low back pain) History of Previous Operations: Relevant previous surgery/procedure and date(s) (H/O kidney removal Hx of tubal ligation) Allergies: Allergies Allergy/AdvReac Type Severity Reaction Status Date / Time No Known Allergies Allergy Verified 08/25/23 07:10 Review of Systems Sugical H&P ROS: Negative: Constitution, Cardiovascular, Respiratory and Gastrointestinal Exam Surgical H&P Exam: Normal: Heart, Normal: Lungs, Normal: Extremities and Normal: Abdomen Plan Diagnosis/Plan: Unchanged I have reviewed the history and physical and performed a pertinent physical examination on my patient. No changes have occurred unless specified. Time Spent With Patient Time: Total time managing care of this patient today ____ minutes.
--- NOTE | 2023-08-25 08:59 | HO.OPN-COLON ---
Colonoscopy Operative Note Operative Note Date of Service: 08/25/23 Narrative: COLONOSCOPY TILL CECUM WITH BIOPSIES Pre-op diagnosis: Colon cancer screening. Post-op diagnosis:? Colon polyp, Diverticulosis Endoscopist:? Mindy Sotelo MD Anesthesia:?MAC Consent: Indications for the procedure and potential complications of bleeding, perforation, reaction to medications and missed diagnosis were discussed with the patient and informed consent was obtained. Instrument: Olympus PCF H 190 L variable stiffness pediatric colonoscope Monitoring: Vital signs and clinical assessment, intermittent blood pressure monitoring, continuous EKG monitoring, Pulse oximetry and Carbon Dioxide monitoring were done throughout the procedure. Please see anesthesia flowsheet. Colon withdrawl time was 14 minutes. Procedure: The patient was placed in the left lateral decubitis position and pre-procedure medications were administered. After a digital rectal examination of the ano-rectum, the video colonoscope was inserted into the rectum and advanced through the colon to the cecum. The colonoscope was slowly withdrawn in a retrograde panoramic fashion and the colon mucosa was carefully examined including a retroflexed view of the rectum. Findings and interventions are described below. Procedure Difficulty: without difficulty Findings: Terminal Ileum: Not evaluated Cecum: Normal Ascending Colon: Normal Transverse Colon: Normal Descending Colon: Moderate diverticulosis Sigmoid Colon: Moderate diverticulosis Rectum: A 3-4 mm diminutive appearing polyp - removed with a cold biopsy Ano-rectum: Normal Colon preparation: Excellent after some irrigation. [place] Bowel Preparation Scale Right colon; 3 Transverse colon: 3 Left colon; 3 (0 = Unprepared colon segment with mucosa not seen due to solid stool that cannot be cleared. 1 = Portion of mucosa of the colon segment seen, but other areas of the colon segment not well seen due to staining, residual stool and/or opaque liquid. 2 = Minor amount of residual staining, small fragments of stool and/or opaque liquid, but mucosa of colon segment seen well. 3 = Entire mucosa of colon segment seen well with no residual staining, small fragments of stool or opaque liquid) Impression and Post Procedure Diagnosis: Colonoscopy Findings: One small polyp was removed Moderate diverticulosis seen in the left colon Plan: I will send a letter with biopsy results. Pt has a FU appointment on 10/17/23 with JEROME Izaguirre. Repeat Colonoscopy in 5 years if polyp is adenomatous and 10 year if polyp is hyperplastic. Above findings were reviewed with the patient and relevant handouts were given and the discharge area.
[2023-08-25 09:03] VITALS: BP 98/52; PULSE 72; RESP 16; TEMP 36.1; O2SAT 96
[2023-08-25 09:18] VITALS: BP 106/58; PULSE 68; RESP 18; TEMP 36.2; O2SAT 99
== END 2023-08-25 10:04 | disposition home or self-care (01) ==
PROVIDERS: PCP Nurse Practitioner Family; Visit Provider Internal Medicine Gastroenterology
PROC: 0DJD8ZZ Inspection of Lower Intestinal Tract, Via Natural or Artificial Opening Endoscopic (ICD-10-PCS; CPT 45378; principal; 2023-08-25 08:30)
DX: Z12.11 Encounter for screening for malignant neoplasm of colon (principal); K62.1 Rectal polyp; K57.30 Diverticulosis of large intestine without perforation or abscess without bleeding
CPT/HCPCS: 45380; 88305; J2704

== ENCOUNTER → 2023-08-25 06:53 | Outpatient (BNV) | payer OTHER, SELFPAY | PROVIDERS: PCP Nurse Practitioner Family; Visit Provider Internal Medicine Gastroenterology | DX: Z12.11 Encounter for screening for malignant neoplasm of colon (principal); K62.1 Rectal polyp; K57.90 Diverticulosis of intestine, part unspecified, without perforation or abscess without bleeding | CPT/HCPCS: 45380 ==

== ENCOUNTER 2023-12-06 14:40 | Outpatient (REF) | payer OTHER, SELFPAY ==
--- NOTE | ~2023-12-06 | US_ITS ---
EXAMINATION: US RETROPERITONEAL LIMITED (RENAL ONLY) CLINICAL INFORMATION: Calculus of kidney. COMPARISON: Renal ultrasound 06/05/2023. Ultrasound kidneys and bladder 09/14/2022. X-ray abdomen KUB 12/02/2022. TECHNIQUE: Real-time imaging of the kidneys. FINDINGS: RIGHT KIDNEY: 11.5 x 4.1 x 6.4 cm (SAG x AP x TRV). The kidney is normal in size, contour, and echogenicity. Renal cortical thickness is normal. No focal parenchymal lesions. Mild fullness in the renal pelvis without gross hydronephrosis. Multiple echogenic foci are noted most punctate but the largest measuring 7 mm with twinkle artifact consistent with a nonobstructing calculus. LEFT KIDNEY: Surgically absent. US/US renal BI IMPRESSION: Nonobstructing right renal calculus with other findings as described above. Electronically signed by: Eddi Mcclellan MD 12/15/2023 12:45 AM EDT
== END 2023-12-06 14:41 | disposition home or self-care (01) ==
LOC: HO.US 14:40
PROVIDERS: PCP Nurse Practitioner Family; Visit Provider Nurse Practitioner Family
DX: N20.0 Calculus of kidney (principal); Z90.5 Acquired absence of kidney
CPT/HCPCS: 76775

== ENCOUNTER 2023-12-12 08:58 | Outpatient (AMB) | payer OTHER, SELFPAY ==
--- NOTE | 2023-12-12 09:02 | MHC.PC.OV ---
Vital Signs 12/12/23 09:05 Height 5 ft 4 in Weight 145 lb 8 oz BMI 25.0 BP 137/74 Blood Pressure Location Lt brachial Position Sitting Respiration 15 Pulse 74 Pulse Source Pulse Oximeter Temp 97.2 F Temp Source Oral Pulse Oximetry (%) 96 Oxygen Delivery Method Room Air Intake Visit Reasons: HLD Intake Note: follow up Allergies No Known Allergies Allergy (Verified 12/12/23 09:17) Medication List - Last Reconciled 12/12/23 by Waldo Murillo CNP atorvastatin 40 mg PO BEDTIME 30 days fenofibrate 54 mg PO DAILY 30 days gabapentin 200 mg (2 x 100 mg) PO BEDTIME mirabegron ER (Myrbetriq) 25 mg PO DAILY 90 days omeprazole 20 mg PO DAILY 30 days Tobacco use date assessed: 06/13/23 Dental Screening Dental Screen Date: 06/13/23 HPI HPI Comments History of Present Illness Details 68-year-old female presents for hyperlipidemia follow-up She admits to taking her medications as prescribed without adverse reactions She denies anxiety or depressive symptoms She offers no complaints and denies acute symptoms at this time [facility] Medical History (Updated 08/23/23 @ 12:09 by Jeanne Hardy RN) Renal calculus GERD (gastroesophageal reflux disease) Solitary kidney, acquired Stress incontinence Incontinence Hyperlipidemia Low back pain Surgical History H/O kidney removal Hx of tubal ligation Family History Brother Lung cancer Brain cancer Social History Housing: Apartment Alcohol intake: current Alcohol intake frequency: 0-2 drinks per day Alcohol type: beer Patient Tobacco Use Status: Current everyday Tobacco user Tobacco use type: Cigarette Cigarette Packs Per Day: 0.25 Cigarettes Per Day: 10 Years Smoked: 50 e-Cigarette/Vaping Use: Never Used service: No Current occupational status: retired Sexual orientation: Straight/Heterosexual Gender identity: Female Cognitive needs: No Hearing needs: No Vision needs: No Questionnaire Thrive Questionnaire Date Thrive assessed: 06/13/23 ERIK-7 AMB Questionnaire ERIK-7 Date ERIK - 7 assessed: 06/13/23 Source: Developed by Drs. Lazaro Meeks, Ania Gaytan, Juan Zhang and colleagues, with an educational donta from [employer]. Review of Systems Const Details: Const Denies chills, Denies fatigue, Denies fever(s), Denies headache(s) and Denies weakness ENT Denies dizziness and Denies headache(s) Card Denies chest pain, Denies lightheadedness, Denies dyspnea and Denies other (Palpitations) Resp Denies cough, Denies dyspnea, Denies wheezing and Denies other ( shortness of breath) GI Denies abdominal pain, Denies melena, Denies hematochezia, Denies change in bowel habits, Denies dyspepsia and Denies nausea Denies hematuria and Denies dysuria Musc Denies abnormal gait, Denies myalgias, Denies arthralgias, Denies numbness and Denies tingling Skin/Breast Denies rash, Denies unusual bruising and Denies wounds Neuro Denies abnormal gait, Denies dizziness, Denies headache(s), Denies memory loss, Denies numbness, Denies Sensory deficit (Neuro), Denies tingling and Denies weakness Psych Denies anxiety, Denies depression, Denies memory loss Endo Denies cold intolerance, Denies fatigue, Denies heat intolerance, Denies polydipsia and Denies polyuria Aller/Immun Denies wheezing Physical exam (Primary Care) Vital Signs: Last Vital Signs Temp 97.2 F 12/12/23 09:05 Pulse 74 12/12/23 09:05 Resp 15 12/12/23 09:05 BP 137/74 12/12/23 09:05 Pulse Ox 96 12/12/23 09:05 Oxygen Delivery Method Room Air 12/12/23 09:05 BMI result Body Mass Index 25.0 Tobacco/Smoking Status: Tobacco use Status Tobacco use date assessed 06/13/23 12/12/23 09:07 Patient Tobacco Use Status Current everyday Tobacco 12/12/23 09:07 Tobacco use type Cigarette 12/12/23 09:07 e-Cigarette/Vaping Use Never Used 12/12/23 09:07 Thrive Assessment: Date of Thrive Assessment Date Thrive assessed 06/13/23 12/12/23 09:07 Const Other: General: no acute distress and well developed Nutritional Appearance: well nourished Orientation/consciousness: patient oriented x3 HENMT Head: Yes normocephalic and Yes atraumatic Eyes General: appearance normal, both eyes and all related structures Pupils: Equal, round and reactive pupils present EOM: EOMs intact bilaterally Resp Effort & Inspection: normal respiratory effort Auscultation: clear to auscultation bilaterally Cardio Rate: regular rate Rhythm: regular rhythm Heart sounds: S1 normal heart sound present, S2 normal heart sound present, no gallops, no murmurs and no rubs GI Palpation (GI): No Abdominal aortic bruit present, Soft to palpation, nontender, No hepatosplenomegaly present and No Rebound tenderness present Auscultation: normal bowel sounds General: Yes no CVA tenderness Back/Spine/Pelvis Back: no CVA tenderness Cervical Spine: cervical ROM normal and No Cervical spine tenderness Thoracic/Lumbar Spine: thoraco-lumbar ROM normal, No pain with thoraco-lumbar ROM, No thoracic spinal tenderness and No lumbar spinal tenderness Extrem General: Yes normal to inspection, No edema and No calf tenderness Skin General: warm and dry. Normal skin color. Normal skin turgor Neuro General: patient oriented x3, gait normal and no focal neuro deficit Cranial nerves: Yes Equal, round and reactive pupils present Cognition (Neuro): normal cognition Gait exam (Neuro): Normal gait present Sensory Exam: No Sensory deficit (Neuro) Psych Appearance: grossly normal Affect: normal affect Attitude: cooperative Thought process: Normal thought process present Coding Level of Care Code Est Pt Level 3 (08664) Diagnoses Other hyperlipidemia E78.49 Hyperlipidemia type: other hyperlipidemia Laboratory tests ordered as part of a complete physical exam (CPE) Z00.00 Assessment & Plan Assessment & Plan (1) Hyperlipidemia: Code(s): E78.5 - Hyperlipidemia, unspecified Category: Medical Qualifiers: Hyperlipidemia type: other hyperlipidemia Qualified Code(s): E78.49 - Other hyperlipidemia Plan: Recent triglycerides, total cholesterol, LDL, HDL levels are normal, 76, 151, 90, and 46 respectively Continue current treatment regimen Advised to limit foods high in saturated fat and avoid foods high in trans fat Routine exercise encouraged Was to get lab work done before next visit Follow-up in 6 months for an extended physical exam or sooner with symptoms or concerns Verbalized understanding and agreed with the treatment plan (2) Laboratory tests ordered as part of a complete physical exam (CPE): Code(s): Z00.00 - Encounter for general adult medical examination without abnormal findings Category: Medical Plan: Fasting labs ordered in preparation of a complete physical exam. Advised to fast for at least 10 hours before getting labs drawn. May drink water Verbalized understanding and agreed with treatment plan. Orders: Orders Complete Blood Count Auto Diff 6 Months Z00.00 - Encounter for general adult medical examination without abnormal findings TSH reflex Free T4 6 Months Z00.00 - Encounter for general adult medical examination without abnormal findings Microalbumin, Random (w Creat) 6 Months Z00.00 - Encounter for general adult medical examination without abnormal findings Comprehensive Burney. Panel Fast 6 Months Z00.00 - Encounter for general adult medical examination without abnormal findings Lipid Panel 6 Months Z00.00 - Encounter for general adult medical examination without abnormal findings UA CC w/rflx Micro + Cult 6 Months Z00.00 - Encounter for general adult medical examination without abnormal findings
[2023-12-12 09:05] VITALS: BP 137/74; PULSE 74; RESP 15; TEMP 36.2; O2SAT 96; BMI 25.0
== END 2023-12-12 09:26 | disposition home or self-care (01) ==
PROVIDERS: PCP Nurse Practitioner Family; Visit Provider Nurse Practitioner Family
DX: E78.49 Other hyperlipidemia (principal); Z00.00 Encounter for general adult medical examination without abnormal findings

== ENCOUNTER → 2023-12-12 08:58 | Outpatient (BNVA) | payer OTHER, SELFPAY | PROVIDERS: PCP Nurse Practitioner Family; Visit Provider Nurse Practitioner Family | DX: Z00.00 Encounter for general adult medical examination without abnormal findings (principal) | CPT/HCPCS: 99212 ==

== ENCOUNTER 2023-12-20 15:11 | Outpatient (AMB) | payer OTHER, SELFPAY ==
--- NOTE | 2023-12-20 15:18 | MHC.OFFVIS ---
Intake Visit Reasons: 6M/US/PVR(set) Intake Note: Patient is present for follow up kidney stone, incontinence, and ultrasound results Imagin12/06/23 Urology Medications: Myrbetriq Blood Thinner: none PVR: 0ml's Copper Miner Required: No Accompanied by: Self / Same As Patient Allergies No Known Allergies Allergy (Verified 12/20/23 20:12) Medication List - Last Reconciled 12/20/23 by ZAKI Zhang atorvastatin 40 mg PO BEDTIME 30 days fenofibrate 54 mg PO DAILY 30 days gabapentin 200 mg (2 x 100 mg) PO BEDTIME mirabegron ER (Myrbetriq) 25 mg PO DAILY 90 days omeprazole 20 mg PO DAILY 30 days HPI Comments Details: Eveline is a pleasant 68-year-old female patient of Dr. Murillo. She has a past medical history of stress incontinence, hyperlipidemia, back pain, and nicotine dependence. She presents to the office today for a follow up of her nephrolithiasis, solitary kidney, and mixed urinary incontinence. In discussion with the patient today she reports to be doing and feeling well. She discusses continuing to work on limiting/quitting her cigarette smoking. She reports being down to approximately 5 cigarettes per day. Recent renal imaging results reviewed with the patient today. The right kidney is normal in size, contour, and echogenicity. No focal lesions. Mild fullness in the renal pelvis without gross hydronephrosis. Multiple echogenic foci are noted most punctate but the largest measuring 7 mm with twinkle artifact consistent with a nonobstructing calculus. Left kidney surgically absent. We discussed increased stone burden since last imaging 6 months ago. We discussed given solitary kidney further workup versus surveillance monitoring. Risks and benefits of these interventions were discussed. She otherwise denies any bothersome urinary issues or concerns. She reports feeling Myrbetriq 25 mg daily has been extremely helpful with her episodes of urgency and frequency. In office urinalysis results reviewed with the patient today. PVR 0 mL. When asked she denies urinary urgency, urinary frequency, nocturia, hematuria, dysuria, foul smelling urine, changes to urinary stream, flank pain, fever, and or chills. She otherwise offers no other issues or concerns at this time. [facility] Medical History Renal calculus GERD (gastroesophageal reflux disease) Solitary kidney, acquired Stress incontinence Incontinence Hyperlipidemia Low back pain Surgical History H/O kidney removal Hx of tubal ligation Family History Brother Lung cancer Brain cancer Social History Housing: Apartment Alcohol intake: current Alcohol intake frequency: 0-2 drinks per day Alcohol type: beer Patient Tobacco Use Status: Current everyday Tobacco user Tobacco use type: Cigarette Cigarette Packs Per Day: 0.25 Cigarettes Per Day: 10 Years Smoked: 50 e-Cigarette/Vaping Use: Never Used service: No Current occupational status: retired Sexual orientation: Straight/Heterosexual Gender identity: Female Cognitive needs: No Hearing needs: No Vision needs: No Review of Systems Const Reports no additional complaints Eyes Reports no additional complaints ENT Reports no additional complaints Card Reports as per HPI Resp Reports no additional complaints GI Reports no additional complaints Reports as per HPI Musc Reports as per HPI Neuro Reports no additional complaints Psych Reports no additional complaints Endo Reports no additional complaints Trent/Lymph Reports no additional complaints Aller/Immun Reports no additional complaints Physical Exam Const General: cooperative, healthy appearing, comfortable, no acute distress, well developed, alert and awake Orientation/consciousness: patient oriented x3 Limitations: no limitations HEENT Head: Yes normal to inspection, Yes normocephalic and Yes atraumatic Ears: hearing grossly normal bilaterally Eyes General: appearance normal, both eyes and all related structures Neck Neck: Yes normal visual inspection and Yes trachea midline Chest Chest palpation & inspection: normal inspection of the chest Resp Effort & Inspection: normal respiratory effort and able to speak in complete sentences Cardio Rate: regular rate GI Inspection: Yes normal to inspection General: Yes no CVA tenderness Back/Spine/Pelvis Back: no CVA tenderness Skin General skin exam: no rashes or lesions noted Neuro General: patient oriented x3 Extrem General: Yes normal to inspection Psych Appearance: grossly normal and well kempt Mental Status: mental status grossly normal Speech and movement: Normal speech and movement present and Clear speech present Affect: normal affect Attitude: cooperative Thought process: Normal thought process present Thought content: Normal thought content present Insight: Fair insight present (Psych) Judgement: Fair judgement present (Psych) Office Procedures Post Void Residual Post Residual Void Post Void Residual (PVR): 0 [id number] Void Residual by ultrasound Results AMB Urinalysis, Automated UA Leukoctes 0 Mendy/uL Last Edit by Rere Radford on 12/20/23 15:46 UA Nitrite Last Edit by [employer] Radford on 12/20/23 15:46 UA Urobilinogen 0.2 mg/dL Last Edit by [employer] on 12/20/23 15:46 UA Protein 0 mg/dL Last Edit by [employer] on 12/20/23 15:46 UA pH 6.5 Last Edit by [employer] on 12/20/23 15:46 UA Blood 0 Jayden/uL Last Edit by [facility] [facility] [employer] on 12/20/23 15:46 UA Specific [place] 0 Last Edit by [employer] on 12/20/23 15:46 UA Ketone Negative Last Edit by [facility] on 12/20/23 15:46 UA Bilirubin 0 mg/dL Last Edit by [employer] on 12/20/23 15:46 UA Glucose 0 mg/dL Last Edit by [employer] on 12/20/23 15:46 Results Reviewed Results Reviewed: Laboratory Last Values Urine pH (Auto) 6.5 12/20/23 15:44 Specific [place] (Auto) 0 12/20/23 15:44 Urine Protein (Auto) 0 mg/dL 12/20/23 15:44 Glucose (UA)(Auto) 0 mg/dL 12/20/23 15:44 Urine Ketones (Auto) Negative 12/20/23 15:44 Urine Blood (Auto) 0 Jayden/uL 12/20/23 15:44 Urine Bilirubin (Auto) 0 mg/dL 12/20/23 15:44 Urine Urobilinogen (Auto) 0.2 mg/dL 12/20/23 15:44 Leukocyte Esterase (Auto) 0 Mendy/uL 12/20/23 15:44 Date of Service: 12/06/23 EXAMINATION: US RETROPERITONEAL LIMITED (RENAL ONLY) FINDINGS: RIGHT KIDNEY: 11.5 x 4.1 x 6.4 cm (SAG x AP x TRV). The kidney is normal in size, contour, and echogenicity. Renal cortical thickness is normal. No focal parenchymal lesions. Mild fullness in the renal pelvis without gross hydronephrosis. Multiple echogenic foci are noted most punctate but the largest measuring 7 mm with twinkle artifact consistent with a nonobstructing calculus. LEFT KIDNEY: Surgically absent. IMPRESSION: Nonobstructing right renal calculus with other findings as described above. Assessment & Plan Assessment & Plan (1) Nephrolithiasis: Code(s): N20.0 - Calculus of kidney Category: Medical (2) Solitary kidney, acquired: Code(s): Z90.5 - Acquired absence of kidney Category: Medical (3) Urinary frequency: Code(s): R35.0 - Frequency of micturition Category: Medical (4) Incontinence: Code(s): R32 - Unspecified urinary incontinence Category: Medical Plan In office urinalysis results reviewed with the patient today; as noted above. PVR 0 mL. Recent renal imaging results reviewed with the patient today; as noted above. She currently denies any bothersome urinary issues or concerns. She reports be happy with current voiding parameters on 25 mg of Myrbetriq; will continue. Discussed increase in stone burden since last imaging. Will obtain CT KUB for further assessment evaluation. Follow-up in 1-3 months with imaging to be completed; or sooner with any issues, concerns, and or questions. Orders: Orders AMB Urinalysis Automated Today Z13.9 - Encounter for screening, unspecified AMB Post Void Residual by ultrasound Today R35.0 - Frequency of micturition CT kidney stone Today N20.0 - Calculus of kidney, Z90.5 - Acquired absence of kidney Patient Instructions: The patient had an opportunity to ask questions regarding the treatment plan. All questions were answered. Physical exam, labs, and imaging were discussed and reviewed in detail. As well as risks, benefits, and discussion of treatment choices. No major barriers to understanding were identified. The patient expressed understanding and agreement with the above treatment plan. The patient was made aware they should contact our office by phone for worsening of their current condition, the appearance of new symptoms, or with any questions or concerns. Compliance is encouraged with any medications and follow up testing that is ordered. It is a privilege to be allowed the opportunity to participate in? your urological care.? Again, if you have any questions or concerns If you have any questions or concerns please do not hesitate to contact me. The office is [phone]. This note is constructed using voice recognition software. While every effort has been made to ensure accuracy lacquer machine feeder errors may have been included. Yours sincerely, KASSI Zhang-CECE Coding Level of Care Code Est Pt Level 3 (98719) Complex EM visit Add On G2211 Diagnoses Nephrolithiasis N20.0 Solitary kidney, acquired Z90.5 Urinary frequency R35.0 Incontinence R32 CPT Codes Post Residual Void - PVR CPT Code: [id number]-[id number] Void Residual by ultrasound ([id number])
== END 2023-12-20 15:49 | disposition home or self-care (01) ==
PROVIDERS: PCP Nurse Practitioner Family; Visit Provider Nurse Practitioner Family
DX: N20.0 Calculus of kidney (principal); Z90.5 Acquired absence of kidney; R35.0 Frequency of micturition; R32 Unspecified urinary incontinence; Z13.9 Encounter for screening, unspecified
CPT/HCPCS: 99213; G2211

== ENCOUNTER → 2023-12-20 15:11 | Outpatient (BNVA) | payer OTHER, SELFPAY | PROVIDERS: PCP Nurse Practitioner Family; Visit Provider Nurse Practitioner Family | DX: N20.0 Calculus of kidney (principal); R32 Unspecified urinary incontinence; Q60.0 Renal agenesis, unilateral; R35.0 Frequency of micturition | CPT/HCPCS: 51798; 81003; 99212 ==

== ENCOUNTER 2024-01-22 14:21 | Outpatient (AMB) | payer OTHER, SELFPAY ==
--- NOTE | 2024-01-22 14:22 | A.OFFVIS_ITS ---
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 No complaints. Last Pap/HPV was negative around 10 years ago. Last Mammogram was BI-RADS 2 in 12/03 Last Colonoscopy was in 09/03 Last DEXA scan was in 12/03 [facility] Medical History Renal calculus GERD (gastroesophageal reflux disease) Solitary kidney, acquired Stress incontinence Incontinence Hyperlipidemia Low back pain Surgical History H/O kidney removal Hx of tubal ligation Family History Brother Lung cancer Brain cancer Social History Housing: Apartment Alcohol intake: current Alcohol intake frequency: 0-2 drinks per day Alcohol type: beer Patient Tobacco Use Status: Current everyday Tobacco user Tobacco use type: Cigarette Cigarette Packs Per Day: 0.25 Cigarettes Per Day: 10 Years Smoked: 50 e-Cigarette/Vaping Use: Never Used service: No Current occupational status: retired Sexual orientation: Straight/Heterosexual Gender identity: Female Cognitive needs: No Hearing needs: No Vision needs: No Female Reproductive History Menstrual Total pregnancies: 6 Full term: 6 Date of last pap smear: 12/21/22 Date of Mammogram: 11/15/22 (bi-rad 2) Date of last Bone Density Screenin11/15/22 Review of Systems Const All systems reviewed & are unremarkable except as noted in HPI and below Card Reports as per HPI Resp Reports as per HPI GI Reports as per HPI and Reports no additional complaints Reports as per HPI Physical Exam Vital Signs: BMI result Body Mass Index 24.9 Const General: cooperative, healthy appearing and comfortable Chest Chest palpation & inspection: normal inspection of the chest and normal palpation of entire chest wall Breast/axilla inspection: normal inspection of the breasts and normal inspection of the axillae Breast/axilla palpation: normal palpation of the breasts, normal palpation of the axillae and no axillary lymphadenopathy Resp Effort & Inspection: normal respiratory effort Auscultation: clear to auscultation bilaterally Percussion: percussion normal Cardio Palpation: normal PMI Rate: regular rate Rhythm: regular rhythm Heart sounds: no murmurs and no rubs Peripheral pulses: Peripheral pulses 2+ throughout GI Inspection: Yes normal to inspection Palpation (GI): Soft to palpation, nontender, no guarding, not rigid and No hepatosplenomegaly present Percussion: Yes normal to percussion Auscultation: normal bowel sounds Rectal Exam - Female: deferred General: Yes bladder normal to palpation External Female Exam: No lesion Speculum Exam - Vagina: normal appearance of the vagina, normal palpation, normal vaginal discharge and not erythematous Speculum Exam - Cervix: normal appearance of the cervix and normal palpation Bimanual exam- vagina & uterus: normal bimanual exam, normal palpation, uterine size normal, bladder normal to palpation, consistency normal and normal palpation Bimanual Exam- Adnexa, other: normal adnexae, no masses and no tenderness Assessment & Plan Assessment & Plan (1) Well woman exam: Code(s): Z01.419 - Encounter for gynecological examination (general) (routine) without abnormal findings Category: Medical Plan: Co testing done although the patient 's age is above 65 with no history of abnormal Pap smears last 25 years but no history of recent Pap smear last 10 years. Counseled the patient about the recommended dietary allowance of 1200 mg of Calcium & 800 IU of vitamin D. Mammogram ordered. The patient was instructed to perform monthly self-breast exams and to schedule an annual exam in a year; All questions answered and the patient verbalized understanding. Orders: Orders MM tomosynthesis screening BI Today Z12.31 - Encounter for screening mammogram for malignant neoplasm of breast Coding Level of Care Code Est Pt Prev Care >65y(15010) Diagnoses Well woman exam Z01.419
[2024-01-22 14:24] VITALS: BMI 24.9
== END 2024-01-22 15:18 | disposition home or self-care (01) ==
LOC: HO.HWS 14:21
PROVIDERS: PCP Nurse Practitioner Family; Visit Provider Obstetrics & Gynecology
DX: Z01.419 Encounter for gynecological examination (general) (routine) without abnormal findings (principal)
CPT/HCPCS: 99397

== ENCOUNTER 2024-01-22 14:21 | Outpatient (REF) | payer OTHER, SELFPAY ==
[2024-02-15 13:33] LABS: HPV 16,18/45 See PAP report
== END 2024-01-22 14:22 | disposition home or self-care (01) ==
LOC: HO.LNP 14:21
PROVIDERS: PCP Nurse Practitioner Family; Visit Provider Obstetrics & Gynecology
DX: Z01.419 Encounter for gynecological examination (general) (routine) without abnormal findings (principal)
CPT/HCPCS: 87624; 88175; 99397

== ENCOUNTER 2024-01-25 08:50 | Outpatient (REF) | payer OTHER, SELFPAY ==
--- NOTE | ~2024-01-25 | MM_ITS ---
EXAMINATION: MM SCREENING DIGITAL BREAST TOMOSYNTHESIS, BILATERAL CLINICAL INFORMATION: Screening. Asymptomatic. COMPARISON: Mammography: Comparison is made with available priors TECHNIQUE: Digital breast mammography with tomosynthesis is performed in both the craniocaudal and mediolateral oblique views along with computer-aided detection (CAD). FINDINGS: There are scattered areas of fibroglandular density (ACR BI-RADS breast composition Category b). There are no significant masses, abnormal calcifications, or other abnormalities. MM/MM tomosynthesis screening BI IMPRESSION: No mammographic evidence of malignancy. ASSESSMENT: BI-RADS BI-RADS 1 - Negative RECOMMENDATION: Routine annual mammography screening. 1 year F/U This examination should not preclude the clinical evaluation of a suspicious palpable abnormality. This patient's information was entered into a reminder system with a target due date for their next mammogram. Electronically signed by: Jessica Verma DO 02/02/2024 10:45 AM JAMES
== END 2024-01-25 08:51 | disposition home or self-care (01) ==
LOC: HO.MAMMO 08:50
PROVIDERS: PCP Nurse Practitioner Family; Visit Provider Obstetrics & Gynecology
DX: Z12.31 Encounter for screening mammogram for malignant neoplasm of breast (principal)
CPT/HCPCS: 77063; 77067

== ENCOUNTER → 2024-01-25 09:15 | Outpatient (BNV) | payer OTHER, SELFPAY | PROVIDERS: PCP Nurse Practitioner Family; Visit Provider Internal Medicine | DX: Z12.31 Encounter for screening mammogram for malignant neoplasm of breast (principal) | CPT/HCPCS: 77063; 77067 ==

== ENCOUNTER 2024-03-20 08:38 | Outpatient (REF) | payer MEDICARE, MEDICAID, SELFPAY | END 2024-03-20 08:39 | disposition home or self-care (01) | LOC: HO.LAB 08:38 | PROVIDERS: PCP Nurse Practitioner Family; Visit Provider Nurse Practitioner Family | DX: Z13.89 Encounter for screening for other disorder (principal) ==

== ENCOUNTER 2024-03-22 14:29 | Outpatient (REF) | payer MEDICARE, MEDICAID, SELFPAY ==
--- NOTE | ~2024-03-22 | CT_ITS ---
CLINICAL HISTORY: N20.0 - Calculus of kidney CT abdomen and pelvis without IV or oral contrast Comparison: None Findings: Lung bases show no active disease. No dependent layering pleural effusions. The heart is not enlarged. Absent left kidney. No nephroureterolithiasis or evidence of obstructive uropathy on the right. Decompressed urinary bladder Evaluation of the liver, spleen, adrenal glands and pancreas demonstrates no lesions. Volume redistribution of the liver reflecting mild cirrhosis. No splenomegaly. It should be noted that isodense masses may be obscured in the absence of intravenous contrast. Equivocal cholelithiasis. The gallbladder is decompressed. 7 mm indeterminate nodule within the omentum just below the right lobe of the liver. Normal appendix. No pathologically enlarged lymph nodes. No ascites demonstrated. Increased stool burden. Postmenopausal uterine atrophy. No vertebral body compression fractures or spondylolisthesis. No bony destructive lesions. Impression: 1. Absent left kidney. Compensatory hypertrophy right kidney with no nephroureterolithiasis or evidence of obstructive uropathy. 2. Partially decompressed urinary bladder. 3. Ancillary findings as described. This document has been electronically signed by: Yury Cerna MD on 03/25/2024 13:09:53
== END 2024-03-22 14:30 | disposition home or self-care (01) ==
LOC: HO.CT 14:29
PROVIDERS: PCP Nurse Practitioner Family; Visit Provider Nurse Practitioner Family
DX: N20.0 Calculus of kidney (principal); Z90.5 Acquired absence of kidney
CPT/HCPCS: 74176

== ENCOUNTER → 2024-03-22 14:31 | Outpatient (BNV) | payer MEDICARE, MEDICAID, SELFPAY | PROVIDERS: PCP Nurse Practitioner Family; Visit Provider Radiology Diagnostic Radiology | DX: N20.0 Calculus of kidney (principal) | CPT/HCPCS: 74176 ==

== ENCOUNTER 2024-04-04 11:30 | Outpatient (AMB) | payer MEDICARE, MEDICAID, SELFPAY ==
--- NOTE | 2024-04-04 11:34 | MHC.OFFVIS ---
Intake Visit Reasons: 2m/CT KUB Intake Note: Patient is present for follow up kidney stone, incontinence, and ct scan results Imagin03/25/24 Urology Medications: Myrbetriq Blood Thinner: none PVR: 0ml's Inspector Final Assembly Conveyor Line Required: No Accompanied by: Self / Same As Patient Allergies No Known Allergies Allergy (Verified 04/04/24 11:51) Medication List - Last Reconciled 04/04/24 by ZAKI Zhang atorvastatin 40 mg PO BEDTIME fenofibrate 54 mg PO DAILY 30 days gabapentin 200 mg (2 x 100 mg) PO BEDTIME mirabegron ER (Myrbetriq) 25 mg PO DAILY 90 days omeprazole 20 mg PO DAILY 30 days HPI Comments Details: Eveline is a pleasant 68-year-old female patient of Dr. Murillo. She has a past medical history of stress incontinence, hyperlipidemia, back pain, and nicotine dependence. She presents to the office today for a follow up of her nephrolithiasis, solitary kidney, and mixed urinary incontinence. In discussion with the patient today she reports to be doing and feeling well. She discusses continuing to work on limiting/quitting her cigarette smoking. She reports being down to approximately 5 cigarettes per day. Of note, patient was seen approximately 3 months ago at which time a CT was ordered as most recent renal imaging noted potential for increase in stone burden with mild fullness in the right renal pelvis and patient with solitary kidney. Recent CT results reviewed with the patient today 04/06 absent left kidney. Compensatory hypertrophy of right kidney with no nephroureterolithiasis or evidence of obstructive uropathy. Partially decompressed urinary bladder. We discussed at length importance of quitting nicotine dependence for overall health and well-being. She currently denies any bothersome urinary issues or concerns. She reports compliance with Myrbetriq 25 mg daily in discusses how extremely helpful with her episodes of urgency and frequency. In office urinalysis results reviewed with the patient today. PVR 0 mL. When asked she denies urinary urgency, urinary frequency, nocturia, hematuria, dysuria, foul smelling urine, changes to urinary stream, flank pain, fever, and or chills. She otherwise offers no other issues or concerns at this time. [facility] Medical History Renal calculus GERD (gastroesophageal reflux disease) Solitary kidney, acquired Stress incontinence Incontinence Hyperlipidemia Low back pain Surgical History H/O kidney removal Hx of tubal ligation Family History Brother Lung cancer Brain cancer Social History Housing: Apartment Alcohol intake: current Alcohol intake frequency: 0-2 drinks per day Alcohol type: beer Patient Tobacco Use Status: Current everyday Tobacco user Tobacco use type: Cigarette Cigarette Packs Per Day: 0.25 Cigarettes Per Day: 10 Years Smoked: 50 e-Cigarette/Vaping Use: Never Used service: No Current occupational status: retired Sexual orientation: Straight/Heterosexual Gender identity: Female Cognitive needs: No Hearing needs: No Vision needs: No Review of Systems Const Reports no additional complaints Eyes Reports no additional complaints ENT Reports no additional complaints Card Reports as per HPI Resp Reports no additional complaints GI Reports no additional complaints Reports as per HPI Musc Reports as per HPI Neuro Reports no additional complaints Psych Reports no additional complaints Endo Reports no additional complaints Trent/Lymph Reports no additional complaints Aller/Immun Reports no additional complaints Physical Exam Const General: cooperative, healthy appearing, comfortable, no acute distress, well developed, alert and awake Orientation/consciousness: patient oriented x3 Limitations: no limitations HEENT Head: Yes normal to inspection, Yes normocephalic and Yes atraumatic Ears: hearing grossly normal bilaterally Eyes General: appearance normal, both eyes and all related structures Neck Neck: Yes normal visual inspection and Yes trachea midline Chest Chest palpation & inspection: normal inspection of the chest Resp Effort & Inspection: normal respiratory effort and able to speak in complete sentences Cardio Rate: regular rate GI Inspection: Yes normal to inspection General: Yes no CVA tenderness Back/Spine/Pelvis Back: no CVA tenderness Skin General skin exam: no rashes or lesions noted Neuro General: patient oriented x3 Extrem General: Yes normal to inspection Psych Appearance: grossly normal and well kempt Mental Status: mental status grossly normal Speech and movement: Normal speech and movement present and Clear speech present Affect: normal affect Attitude: cooperative Thought process: Normal thought process present Thought content: Normal thought content present Insight: Fair insight present (Psych) Judgement: Fair judgement present (Psych) Results AMB Urinalysis, Automated UA Leukoctes 0 Mendy/uL Last Edit by [employer] [place] on 04/04/24 11:49 UA Nitrite Last Edit by [employer] on 04/04/24 11:49 UA Urobilinogen 0.2 mg/dL Last Edit by [employer] [place] on 04/04/24 11:49 UA Protein 0 mg/dL Last Edit by [email or web address] on 04/04/24 11:49 UA pH 6.0 Last Edit by [employer] [place] on 04/04/24 11:49 UA Blood 0 Jayden/uL Last Edit by [email or web address] on 04/04/24 11:49 UA Specific [place] 1.015 Last Edit by [email or web address] on 04/04/24 11:49 UA Ketone Last Edit by [employer] on 04/04/24 11:49 UA Bilirubin 0 mg/dL Last Edit by [email or web address] on 04/04/24 11:49 UA Glucose 0 mg/dL Last Edit by [employer] on 04/04/24 11:49 Results Reviewed Results Reviewed: Laboratory Last Values Urine pH (Auto) 6.0 04/04/24 11:48 Specific [place] (Auto) 1.015 04/04/24 11:48 Urine Protein (Auto) 0 mg/dL 04/04/24 11:48 Glucose (UA)(Auto) 0 mg/dL 04/04/24 11:48 Urine Blood (Auto) 0 Jayden/uL 04/04/24 11:48 Urine Bilirubin (Auto) 0 mg/dL 04/04/24 11:48 Urine Urobilinogen (Auto) 0.2 mg/dL 04/04/24 11:48 Leukocyte Esterase (Auto) 0 Mendy/uL 04/04/24 11:48 Date of Service: 03/22/24 CLINICAL HISTORY: N20.0 - Calculus of kidney CT abdomen and pelvis without IV or oral contrast Comparison: None Findings: Lung bases show no active disease. No dependent layering pleural effusions. The heart is not enlarged. Absent left kidney. No nephroureterolithiasis or evidence of obstructive uropathy on the right. Decompressed urinary bladder Evaluation of the liver, spleen, adrenal glands and pancreas demonstrates no lesions. Volume redistribution of the liver reflecting mild cirrhosis. No splenomegaly. It should be noted that isodense masses may be obscured in the absence of intravenous contrast. Equivocal cholelithiasis. The gallbladder is decompressed. 7 mm indeterminate nodule within the omentum just below the right lobe of the liver. Normal appendix. No pathologically enlarged lymph nodes. No ascites demonstrated. Increased stool burden. Postmenopausal uterine atrophy. No vertebral body compression fractures or spondylolisthesis. No bony destructive lesions. Impression: 1. Absent left kidney. Compensatory hypertrophy right kidney with no nephroureterolithiasis or evidence of obstructive uropathy. 2. Partially decompressed urinary bladder. 3. Ancillary findings as described. Assessment & Plan Assessment & Plan (1) Nephrolithiasis: Code(s): N20.0 - Calculus of kidney Category: Medical (2) Solitary kidney, acquired: Code(s): Z90.5 - Acquired absence of kidney Category: Medical (3) Urinary frequency: Code(s): R35.0 - Frequency of micturition Category: Medical (4) Incontinence: Code(s): R32 - Unspecified urinary incontinence Category: Medical Plan In office urinalysis results reviewed with the patient today; as noted above. PVR [address] imaging results reviewed with the patient today; as noted above. She currently denies any bothersome urinary issues or concerns. She reports be happy with current voiding parameters on 25 mg of Myrbetriq; will continue. Will continue with surveillance monitoring at this time. Will obtain BUN and creatinine. Will obtain renal ultrasound in 6 months. Follow-up in 6 months with imaging and labs to be completed prior; or sooner with any issues, concerns, and or questions. Orders: Orders Blood Urea Nitrogen Today R39.15 - Urgency of urination US renal BI 6 Months N20.0 - Calculus of kidney, Z90.5 - Acquired absence of kidney AMB Urinalysis Automated Today Z13.9 - Encounter for screening, unspecified Creatinine Today R39.15 - Urgency of urination Patient Instructions: The patient had an opportunity to ask questions regarding the treatment plan. All questions were answered. Physical exam, labs, and imaging were discussed and reviewed in detail. As well as risks, benefits, and discussion of treatment choices. No major barriers to understanding were identified. The patient expressed understanding and agreement with the above treatment plan. The patient was made aware they should contact our office by phone for worsening of their current condition, the appearance of new symptoms, or with any questions or concerns. Compliance is encouraged with any medications and follow up testing that is ordered. It is a privilege to be allowed the opportunity to participate in? your urological care.? Again, if you have any questions or concerns If you have any questions or concerns please do not hesitate to contact me. The office is [phone]. This note is constructed using voice recognition software. While every effort has been made to ensure accuracy solar installation foreman errors may have been included. Yours sincerely, ZAKI Zhang Coding Level of Care Code Est Pt Level 3 (57199) Diagnoses Nephrolithiasis N20.0 Solitary kidney, acquired Z90.5 Urinary frequency R35.0 Incontinence R32
== END 2024-04-04 12:01 | disposition home or self-care (01) ==
PROVIDERS: PCP Nurse Practitioner Family; Visit Provider Nurse Practitioner Family
DX: N20.0 Calculus of kidney (principal); Z90.5 Acquired absence of kidney; R35.0 Frequency of micturition; R32 Unspecified urinary incontinence; Z13.9 Encounter for screening, unspecified
CPT/HCPCS: 99213

== ENCOUNTER → 2024-04-04 11:30 | Outpatient (BNVA) | payer OTHER, SELFPAY | PROVIDERS: PCP Nurse Practitioner Family; Visit Provider Nurse Practitioner Family | DX: N20.0 Calculus of kidney (principal); R35.0 Frequency of micturition; R32 Unspecified urinary incontinence; Z90.5 Acquired absence of kidney | CPT/HCPCS: 81003; 99212 ==

== ENCOUNTER 2024-06-21 08:07 | Outpatient (REF) | payer MEDICARE, MEDICAID, SELFPAY ==
[2024-06-21 11:38] LABS: MANUAL DIFF FLAG NO
[2024-06-21 11:41] LABS: Basophils Absolute Auto 0.1 X10*3/uL (0.0-0.2); Basophils Percent Auto 0.8 % (0-2); Eosinophils Absolute Auto 0.3 X10*3/uL (0.0-0.4); Eosinophils Percent Auto 4.5 % (0-4); Hematocrit 44.6 % (37.0-47.0); Hemoglobin 14.8 g/dl (12.0-16.0); Imm Gran Abs Auto 0.01 X10*3/uL (0.00-0.03); Imm Gran Pct Auto 0.1 % (0.0-0.4); Lymphocytes Absolute Auto 2.9 X10*3/uL (1.2-4.9); Lymphocytes Percent Auto 38.6 % (20-40); Mean Corpuscular HGB Conc 33.2 g/dl (31.0-35.0); Mean Corpuscular Hemoglobin 29.8 pg (27.0-33.0); Mean Corpuscular Volume 89.7 fL (80.0-98.0); Mean Platelet Volume 10.6 fL (9.4-12.3); Monocytes Absolute Auto 0.4 X10*3/uL (0.1-1.2); Neutrophils Absolute Auto 3.8 x10*3/uL (2.0-8.3); Platelet Count 275 X10*3/uL (160-400); Red Blood Count 4.97 X10*6/uL (4.20-5.50); Red Cell Distribution Width 13.6 % (11.0-16.0); White Blood Count 7.4 X10*3/uL (4.8-10.8)
[2024-06-21 12:01] LABS: Appearance Urine Clear; Color Urine Yellow; Glucose Urine UA Negative (Negative); Leukocyte Esterase Urine Negative (Negative); Nitrite Urine Negative (Negative); PH 6.5 (5.0-9.0); Urine Blood Negative (Negative); Urine Ketones Negative (Negative); Urine Protein Negative (Neg-Trace)
[2024-06-21 12:19] LABS: TSH reflex Free T4 3.73 uIU/mL (0.32-4.0)
[2024-06-21 12:20] LABS: Alanine Aminotransferase 26 U/L (0-31); Alkaline Phosphatase 96 U/L (39-117); Anion Gap 10 (12-20); Aspartate Amino Transferase 25 U/L (5-31); Bilirubin Total 0.4 mg/dL (0.0-1.0); Blood Urea Nitrogen 15 mg/dL (9-16); Calcium 9.2 mg/dL (8.4-10.2); Carbon Dioxide 27 mmol/L (22-29); Chloride 108 mmol/L (96-108); Cholesterol 266 mg/dL (<200); Estimated Glomerular Filt Rate > 60; Glucose Fasting 100 mg/dL (60-99); HDL Cholesterol 49 mg/dL (>40); LDL Cholesterol Calculated 167 mg/dL (<100); Potassium 4.4 mmol/L (3.3-5.1); Sodium 141 mmol/L (135-145); Total Protein 6.9 g/dL (6.5-8.0); Triglycerides 253 mg/dL (<150)
[2024-06-21 12:33] LABS: Creatinine Urine 103.45 mg/dL; Microalbum/Creatinine Ratio Ur 10.6 ug/mg cr (<30)
== END 2024-06-21 08:08 | disposition home or self-care (01) ==
LOC: HO.WFDLDS 08:07
PROVIDERS: Referring Provider Nurse Practitioner Family; Visit Provider Nurse Practitioner Family
DX: Z00.00 Encounter for general adult medical examination without abnormal findings (principal)
CPT/HCPCS: 36415; 80053; 80061; 81003; 82043; 82570; 84443; 85025

== ENCOUNTER 2024-06-25 10:04 | Outpatient (AMB) | payer MEDICARE, MEDICAID, SELFPAY ==
--- NOTE | 2024-06-25 10:05 | MHC.PC.OV ---
Vital Signs 06/25/24 10:13 Height 5 ft 4 in Weight 153 lb 4 oz BMI 26.3 BP 142/71 H Blood Pressure Location Rt brachial Position Sitting Respiration 16 Pulse 79 Pulse Source Pulse Oximeter Temp 97.8 F Temp Source Oral Pulse Oximetry (%) 98 Oxygen Delivery Method Room Air Intake Visit Reasons: Annual Physical Intake Note: patient here for CPE Long Term Care Phlebotomist Required: No Is last menstrual period known: No Post menopausal: No Patient : No Allergies No Known Allergies Allergy (Verified 06/25/24 10:58) Medication List - Last Reconciled 06/25/24 by Waldo Murillo CNP atorvastatin 40 mg PO BEDTIME fenofibrate 54 mg PO DAILY 30 days gabapentin 200 mg (2 x 100 mg) PO BEDTIME mirabegron ER (Myrbetriq) 25 mg PO DAILY 90 days omeprazole 20 mg PO DAILY 30 days Tobacco use date assessed: 06/25/24 Fall risk assessment: No Falls in past year Last assessed Fall Risk: 06/25/24 Dental Screening Dental Screen Date: 06/25/24 Did you have a dental visit in the last 12 months?: Yes Did you have a dental problem in the last 6 months where you did not have access to dental care?: No Was dental information given to patient?: Patient has dentist HPI HPI Comments History of Present Illness Details 68-year-old female presents for an extended physical exam. Acute issue(s) - HLD: She is no atorvastatin 40 mg at bedtime and fenofibrate 54 mg daily - Stress urinary incontinence: She is on mirabegron 25 mg daily - GERD: She is on omeprazole 20 mg - Astigmatism right eye: She wears prescription glasses - Reports soreness and numbness to both thumbs for almost a year. Her symptoms are intermittent but occur daily. Her ADLs/IADLs a limited due to her symptoms. Past Medical History - Hyperlipidemia, GERD, stress urinary incontinence, astigmatism right eye, renal calculi, solitary kidney, depression Social History - Smokes 5 cigarettes daily, smoked 1ppd x 49 years. Does not vape. Drinks 1 beer daily. Denies recreational drug use - Generally makes healthy dietary choices. Walks regularly. Generally sleep well Health maintenance - Last eye exam was 4 a year ago at [facility]. Referred to track rider for routine eye care - Last dental visit was in 03/2023 - She is unsure of her last tetanus vaccination. She will obtain her immunization record from [facility] and [facility] for her PCP to review her record - She had one vaccine each for shingles and pneumonia at [facility]. Encouraged to followed with [facility] to update her shingles and pneumonia immunization - Has not been vaccinated for the flu this season; declines vaccination - Last pap smear test was in 01/22/2024: Negative - Last mammogram was in 01/25/2024: Negative - Last colonoscopy was in 08/25/2023: Benign polyps - Last dexa scan was on 11/23/2022: Normal - Last LDCT was with [facility] on 12/08/2022. Right lung: Faint subpleural 3 mm nodule in the right upper lobe, stable. No new nodules. Left lung: Stable 3 mm nodule left upper lobe. No new nodule [facility] Medical History Renal calculus GERD (gastroesophageal reflux disease) Solitary kidney, acquired Stress incontinence Incontinence Hyperlipidemia Low back pain Surgical History H/O kidney removal Hx of tubal ligation Family History Brother Lung cancer Brain cancer Social History Housing: Apartment Alcohol intake: current Alcohol intake frequency: 0-2 drinks per day Alcohol type: beer Patient Tobacco Use Status: Current everyday Tobacco user Tobacco use type: Cigarette Cigarette Packs Per Day: 0.25 Cigarettes Per Day: 10 Years Smoked: 50 e-Cigarette/Vaping Use: Never Used service: No Current occupational status: retired Sexual orientation: Straight/Heterosexual Gender identity: Female Cognitive needs: No Hearing needs: No Vision needs: No Questionnaire PHQ-9 Over the last 2 weeks, how often have you been bothered by any of the following problems? 1. Little interest or pleasure in doing things: several days 2. Feeling down, depressed, or hopeless: several days 3. Trouble falling or staying asleep, or sleeping too much: not at all 4. Feeling tired or having little energy: several days 5. Poor appetite or overeating: not at all 6. Feeling bad about yourself - or that you are a failure or have let yourself or your family down: not at all 7. Trouble concentrating on things, such as reading the newspaper or watching television: not at all 8. Moving or speaking so slowly that other people could have noticed. Or the opposite - being so fidgety or restless that you have been moving around a lot more than usual: not at all 9. Thoughts that you would be better off or of hurting yourself in some way: not at all Total score: 3 Depression Screening Interpretation: Negative Depression Screening Done: Yes 08053 - PHQ-9 Billing: Yes Source: Developed by Drs. Lazaro Meeks, Ania Gaytan, Juan Zhang and colleagues, with an educational donta from [employer]. Thrive Questionnaire Date Thrive assessed: 06/25/24 I am a: Patient What is your living situation today?: I have a steady place to live Within the past 12 months, did the food you bought not last and you didn't have the money to get more?: Never true Within the past 12 months, did you worry whether your food would run out before you got money to buy more?: Never true Do you have trouble paying for medicines?: No Do you have trouble getting transportation to medical appointments?: No Do you have trouble paying your heating and electricity bill?: No Do you have trouble taking care of your child, family member or friend?: No Do you have trouble with day-to-day activities such as bathing, preparing meals, shopping, managing finances, etc.?: No Are you currently unemployed and looking for a job?: No Are you interested in more education?: No Please select the resources that you would like help with: None Currently or been in a relationship where the following occur: No concerns reported THRIVE Score: 0 AUDIT C Alcohol Use Questionnaire (AUDIT-C) 1. How often do you have a drink containing alcohol?: 4 or more times a week 2. How many drinks containing alcohol do you have on a typical day when you are drinking?: 1 or 2 3. How often do you have six or more drinks on one occasion?: Weekly Total Score: 7 Score Reviewed/Action Taken: Yes ERIK-7 AMB Questionnaire ERIK-7 Date ERIK - 7 assessed: 06/25/24 Feeling nervous, anxious, or on edge: 0 = Not at all Not being able to stop or control worryin = Several days Worrying too much about different things: 1 = Several days Trouble relaxin = Not at all Being so restless that it is hard to sit still: 0 = Not at all Becoming easily annoyed or irritable: 0 = Not at all Feeling afraid as if something awful might happen: 0 = Not at all Total ERIK-7 score (0-4 normal; 5-9 mild; 10-14 moderate; 15-21 severe): 2 Source: Developed by Drs. Lazaro Meeks, Ania Gaytan, Juan Zhang and colleagues, with an educational donta from [employer]. ERIK-7 Assessment Billing ERIK-7 Assessment Tool: ERIK-7 Assessment 49554 Review of Systems Const Details: Denies chills, Denies fatigue, Denies fever(s), Denies headache(s) and Denies weakness HEENT Denies change in vision, Denies dizziness, Denies headache(s), Denies hearing loss, Denies nasal congestion, Denies sinus pain, Denies sinus pressure and Denies sore throat Card Denies chest pain, Denies lightheadedness, Denies dyspnea and Denies other (palpitations) Resp Denies cough, Denies dyspnea and Denies wheezing GI Denies abdominal pain, Denies melena, Denies hematochezia, Denies change in bowel habits, Denies dyspepsia and Denies nausea Denies hematuria and Denies dysuria Musc Reports as per HPI Skin/Breast Denies rash, Denies unusual bruising and Denies wounds Neuro Denies abnormal gait, Denies dizziness, Denies headache(s), Denies memory loss, Reports numbness, Denies Sensory deficit (Neuro), Denies tingling and Denies weakness Psych Denies anxiety, Denies depression and Denies memory loss Endo Denies cold intolerance, Denies fatigue, Denies heat intolerance, Denies polydipsia and Denies polyuria Trent/Lymph Denies easy bleeding and Denies easy bruising Aller/Immun Denies wheezing Physical exam (Primary Care) Vital Signs: Last Vital Signs Temp 97.8 F 06/25/24 10:13 Pulse 79 06/25/24 10:13 Resp 16 06/25/24 10:13 BP 142/71 H 06/25/24 10:13 Pulse Ox 98 06/25/24 10:13 Oxygen Delivery Method Room Air 06/25/24 10:13 BMI result Body Mass Index 26.3 Tobacco/Smoking Status: Tobacco use Status Tobacco use date assessed 06/25/24 06/25/24 10:13 Patient Tobacco Use Status Current everyday Tobacco 06/25/24 10:08 Tobacco use type Cigarette 06/25/24 10:08 e-Cigarette/Vaping Use Never Used 06/25/24 10:08 PHQ-9: PHQ-9 Score PHQ-9: Total score 3 06/25/24 10:48 Depression Screening Interpretation: Negative Thrive Assessment: Date of Thrive Assessment Date Thrive assessed 06/25/24 06/25/24 10:22 Currently or been in a relationship where the following occur: No concerns reported Const Other: General: no acute distress, well developed, alert and awake Nutritional Appearance: well nourished Orientation/consciousness: patient oriented x3 HENMT Head: Yes normocephalic and Yes atraumatic Ears: hearing grossly normal bilaterally and TM's normal bilaterally General nose exam: Normal external nose present and Normal nares present Mouth: Normal oral and palatal mucosa present and moist mucous membranes Teeth and gingiva: Several missing teeth, normal oral mucosa Throat: Yes oropharynx normal Eyes Pupils: Equal, round and reactive pupils present and Pupil accommodation reflex normal EOM: EOMs intact bilaterally Neck Neck: Yes normal visual inspection, Yes no lymphadenopathy and Yes trachea midline Thyroid: Thyroid normal Carotids: no bruits Lymphatic: no lymphadenopathy noted Chest Chest palpation & inspection: normal inspection of the chest Resp Effort & Inspection: normal respiratory effort Auscultation: clear to auscultation bilaterally Cardio Rate: regular rate Rhythm: regular rhythm Heart sounds: S1 normal heart sound present, S2 normal heart sound present, no gallops, no murmurs and no rubs Bruits: no abdominal aortic bruits and no carotid bruits GI Palpation (GI): No Abdominal aortic bruit present, Soft to palpation, nontender, No hepatosplenomegaly present and No Rebound tenderness present Auscultation: normal bowel sounds General: Yes no CVA tenderness Back/Spine/Pelvis Back: no CVA tenderness Cervical Spine: cervical ROM normal and No Cervical spine tenderness Thoracic/Lumbar Spine: thoraco-lumbar ROM normal, No pain with thoraco-lumbar ROM, No thoracic spinal tenderness and No lumbar spinal tenderness Skin General: warm and dry. Normal skin color. Normal skin turgor Lesions: no lesions Rashes: no rashes Trauma: no lacerations or abrasions Wounds: no wounds Nails: normal Neuro General: patient oriented x3, gait normal and CN's II-XI intact bilaterally Cranial nerves: Yes Equal, round and reactive pupils present Cognition (Neuro): normal cognition Gait exam (Neuro): Normal gait present Motor exam (neuro): 5/5 motor strength present throughout Sensory Exam: No Sensory deficit (Neuro) Deep tendon reflexes (DTR's): Right patellar reflex intensity grade: 2+ and Left patellar reflex intensity grade: 2+ Extrem General: Yes normal to inspection, No edema and No calf tenderness. Tenderness to palpation of both thumbs, no erythema, edema or overt injury/trauma Psych Appearance: grossly normal Affect: normal affect Attitude: cooperative Thought process: Normal thought process present Coding Level of Care Code Est Pt Level 4 (97713) Est Pt Prev Care >65y(62572) Diagnoses Normal physical examination, routine Z00.00 Other hyperlipidemia E78.49 Hyperlipidemia type: other hyperlipidemia Pain of both thumbs M79.644; M79.645 Smoking 1/2 pack a day or less F17.210 Astigmatism of right eye H52.201 Eye exam, routine Z01.00 Additional Codes ERIK-7 Assessment Billing - ERIK-7 Assessment Tool: ERIK-7 Assessment 69028 ([id number]) PHQ-9 - 90602 - PHQ-9 Billing: Yes ([id number]) Assessment & Plan Assessment & Plan (1) Normal physical examination, routine: Code(s): Z00.00 - Encounter for general adult medical examination without abnormal findings Category: Medical Plan: No significant functional limitation noted. Continue current treatment regimen. Healthy diet and routine exercise encouraged. Follow-up in 2 months for hyperlipidemia. Return sooner with symptoms or concerns. Verbalized understanding and agreed with the plan. (2) Hyperlipidemia: Code(s): E78.5 - Hyperlipidemia, unspecified Category: Medical Qualifiers: Hyperlipidemia type: other hyperlipidemia Qualified Code(s): E78.49 - Other hyperlipidemia Plan: Recent triglyceride, total cholesterol, and LDL levels are elevated, 253, 266, and 167 respectively, HDL level is normal. Continue current treatment regimen. Advised to limit foods high in saturated fat and avoid foods high in trans fat. Routine exercise encouraged. Fast for 10-12 hours, may drink water, and perform the panel blood work 2-3 days before next visit. Follow-up in 2 months. Verbalized understanding and agreed with the plan. (3) Pain of both thumbs: Code(s): M79.644 - Pain in right finger(s); M79.645 - Pain in left finger(s) Category: Medical Plan: She has been experiencing soreness and numbness to both thumbs for almost a year. Her symptoms are intermittent but occur daily. Her ADLs/IADLs are limited due to her symptoms. Tenderness to palpation of both thumbs, no erythema, edema or overt injury/trauma. Will check vitamin B12 and folate levels. X-ray of both hands ordered. She is on gabapentin 200 mg at bedtime which I encouraged to continue to take as prescribed. May take Tylenol ibuprofen as needed. Warm/cool compresses encouraged. Follow-up with worsening or new symptoms. Verbalized understanding and agreed with treatment plan. (4) Smoking 1/2 pack a day or less: Code(s): F17.210 - Nicotine dependence, cigarettes, uncomplicated Category: Social Hx Plan: She smokes 5 cigarettes daily, and has a history of smoking 1ppd x 49 years. Last LDCT was with [facility] on 12/08/2022. Right lung: Faint subpleural 3 mm nodule in the right upper lobe, stable. No new nodules. Left lung: Stable 3 mm nodule left upper lobe. No new nodule Instructed on the health risks and complications of cigarette smoking and cessation encouraged. She notes that she has been using [id number] nicotine treatment for smoking cessation. Referred to [facility] pulmonology. Advised to follow-up as needed. Verbalized understanding and agreed with the plan. (5) Astigmatism of right eye: Code(s): H52.201 - Unspecified astigmatism, right eye Category: Medical Plan: She wears prescription glasses. Last eye exam was 4 a year ago at [facility]. Referred to track rider for routine eye care. (6) Eye exam, routine: Code(s): Z01.00 - Encounter for examination of eyes and vision without abnormal findings Category: Medical Plan: Plan as above. Orders: Orders Vitamin B12 and Folate Today E78.49 - Other hyperlipidemia Lipid Panel 2 Months E78.49 - Other hyperlipidemia XR Hand Young 2V Today M79.644 - Pain in right finger(s), M79.645 - Pain in left finger(s) Referrals Lung Cancer Screening Referral F17.210 - Nicotine dependence, cigarettes, uncomplicated Ophthalmology Referral H52.201 - Unspecified astigmatism, right eye, Z01.00 - Encounter for examination of eyes and vision without abnormal findings
[2024-06-25 10:13] VITALS: BP 142/71; PULSE 79; RESP 16; TEMP 36.6; O2SAT 98; BMI 26.3
== END 2024-06-25 11:23 | disposition home or self-care (01) ==
LOC: HO.HMCFM 10:04
PROVIDERS: PCP Nurse Practitioner Family; Visit Provider Nurse Practitioner Family
DX: Z00.00 Encounter for general adult medical examination without abnormal findings (principal); E78.49 Other hyperlipidemia; M79.644 Pain in right finger(s); M79.645 Pain in left finger(s); F17.210 Nicotine dependence, cigarettes, uncomplicated; H52.201 Unspecified astigmatism, right eye

== ENCOUNTER → 2024-06-25 10:04 | Outpatient (BNVA) | payer MEDICARE, MEDICAID, SELFPAY | PROVIDERS: PCP Nurse Practitioner Family; Visit Provider Nurse Practitioner Family | DX: Z13.89 Encounter for screening for other disorder (principal) | CPT/HCPCS: 96127; 99212; 99397 ==

== ENCOUNTER 2024-06-25 11:35 | Outpatient (REF) | payer MEDICARE, MEDICAID, SELFPAY ==
[2024-06-25 15:40] LABS: Folate 3.1 ng/mL (> or = 4.0); Vitamin B12 717 pg/mL (200-900)
[2024-06-25 18:31] LABS: Blood Urea Nitrogen 13 mg/dL (9-16); Estimated Glomerular Filt Rate 58
== END 2024-06-25 11:36 | disposition home or self-care (01) ==
LOC: HO.WFDLDS 11:35
PROVIDERS: Referring Provider Nurse Practitioner Family; Visit Provider Nurse Practitioner Family
DX: Z00.00 Encounter for general adult medical examination without abnormal findings (principal); E78.49 Other hyperlipidemia; M79.644 Pain in right finger(s); M79.645 Pain in left finger(s); R39.15 Urgency of urination; H52.201 Unspecified astigmatism, right eye; F17.210 Nicotine dependence, cigarettes, uncomplicated; Z71.6 Tobacco abuse counseling
CPT/HCPCS: 36415; 82565; 82607; 82746; 84520; 96127; 99212; 99397

== ENCOUNTER 2024-07-15 10:38 | Outpatient (REF) | payer MEDICARE, MEDICAID, SELFPAY ==
--- NOTE | ~2024-07-15 | XR_ITS ---
CLINICAL HISTORY: M79.644 - Pain in right finger(s) 3 view left hand, 3 view right hand Comparison: None Findings: No fractures or dislocations. Moderate degenerative changes with joint space narrowing, Osteophytosis and sclerotic changes of the carpometacarpal joints and diffusely of the interphalangeal joints. Small erosive changes noted of the medial aspect of the 2nd digit proximal phalangeal head. No radiopaque foreign body. IMPRESSION: 1. No acute findings 2. Moderate DJD bilaterally. 3. Small erosive changes of the right 2nd digit proximal phalangeal head, concerning for inflammatory arthritis. This document has been electronically signed by: Kevin Murrell MD on 07/15/2024 22:48:14
== END 2024-07-15 10:39 | disposition home or self-care (01) ==
LOC: HO.XRAY 10:38
PROVIDERS: PCP Nurse Practitioner Family; Visit Provider Nurse Practitioner Family
DX: M79.644 Pain in right finger(s) (principal); M79.645 Pain in left finger(s)
CPT/HCPCS: 73130

== ENCOUNTER → 2024-07-15 10:44 | Outpatient (BNV) | payer MEDICARE, MEDICAID, SELFPAY | PROVIDERS: PCP Nurse Practitioner Family; Visit Provider Student in an Organized Health Care Education/Training Program | DX: M79.644 Pain in right finger(s) (principal) | CPT/HCPCS: 73130 ==

== ENCOUNTER 2024-08-23 08:39 | Outpatient (REF) | payer MEDICARE, MEDICAID, SELFPAY ==
[2024-08-23 11:19] LABS: Cholesterol 244 mg/dL (<200); HDL Cholesterol 46 mg/dL (>40); LDL Cholesterol Calculated 155 mg/dL (<100); Triglycerides 219 mg/dL (<150)
== END 2024-08-23 08:40 | disposition home or self-care (01) ==
LOC: HO.WFDLDS 08:39
PROVIDERS: Visit Provider Nurse Practitioner Family
DX: E78.49 Other hyperlipidemia (principal)
CPT/HCPCS: 36415; 80061

== ENCOUNTER 2024-08-27 08:54 | Outpatient (REF) | payer MEDICARE, MEDICAID, SELFPAY ==
[2024-08-27 12:44] LABS: Folate 6.9 ng/mL (> or = 4.0)
== END 2024-08-27 08:55 | disposition home or self-care (01) ==
LOC: HO.WFDLDS 08:54
PROVIDERS: PCP Nurse Practitioner Family; Visit Provider Nurse Practitioner Family
DX: E53.8 Deficiency of other specified B group vitamins (principal); E78.49 Other hyperlipidemia
CPT/HCPCS: 36415; 82746; 99212

== ENCOUNTER 2024-08-27 08:54 | Outpatient (AMB) | payer MEDICARE, MEDICAID, SELFPAY ==
--- NOTE | 2024-08-27 08:35 | A.OFFPC_ITS ---
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 Required: No Is last menstrual period known: No Post menopausal: No Patient : No Allergies No Known Allergies Allergy (Verified 08/27/24 09:28) Medication List - Last Reconciled 08/27/24 by Waldo Murillo CNP atorvastatin 40 mg PO BEDTIME fenofibrate 54 mg PO DAILY 30 days folic acid 0.4 mg PO DAILY 30 days gabapentin 200 mg (2 x 100 mg) PO BEDTIME mirabegron ER (Myrbetriq) 25 mg PO DAILY 90 days omeprazole 20 mg PO DAILY 30 days Tobacco use date assessed: 08/27/24 Fall risk assessment: No Falls in past year Last assessed Fall Risk: 08/27/24 Dental Screening Dental Screen Date: 08/27/24 Did you have a dental visit in the last 12 months?: No Did you have a dental problem in the last 6 months where you did not have access to dental care?: No Was dental information given to patient?: Patient has dentist HPI HPI Comments History of Present Illness Details 68-year-old female presents for hyperlip idemia follow-up. She admits to taking her medications as prescribed without adverse reactions. She ran out of fenofibrate a few days ago. She offers no complaints and denies acute symptoms at this time. [facility] Medical History (Updated 08/27/24 @ 09:29 by Waldo Murillo CNP) GERD (gastroesophageal reflux disease) Postmenopausal Renal calculus, right Solitary kidney, acquired Nicotine dependence, cigarettes, uncomplicated Stress incontinence Hyperlipidemia Low back pain Surgical History (Updated 07/23/24 @ 10:46 by Jillain Miller PA-C) History of tubal ligation History of left nephrectomy Family History Brother Lung cancer Brain cancer Social History Housing: Apartment Alcohol intake: current Alcohol intake frequency: 0-2 drinks per day Alcohol type: beer Patient Tobacco Use Status: Current everyday Tobacco user Tobacco use type: Cigarette Cigarette Packs Per Day: 0.25 Cigarettes Per Day: 10 Years Smoked: 50 e-Cigarette/Vaping Use: Never Used Second Hand Smoke Exposure: No service: No Current occupational status: retired Sexual orientation: Straight/Heterosexual Gender identity: Female Cognitive needs: No Hearing needs: No Vision needs: No Questionnaire Thrive Questionnaire Date Thrive assessed: 06/25/24 ERIK-7 AMB Questionnaire ERIK-7 Date ERIK - 7 assessed: 06/25/24 Source: Developed by Drs. Lazaro Meeks, Ania Gaytan, Juan Zhang and colleagues, with an educational donta from [employer]. Review of Systems Const Details: Const Denies chills, Denies fatigue, Denies fever(s), Denies headache(s) and Denies weakness ENT Denies dizziness and Denies headache(s) Card Denies chest pain, Denies lightheadedness, Denies dyspnea and Denies other (Palpitations) Resp Denies cough, Denies dyspnea, Denies wheezing and Denies other ( shortness of breath) GI Denies abdominal pain, Denies melena, Denies hematochezia, Denies change in bowel habits, Denies dyspepsia and Denies nausea Denies hematuria and Denies dysuria Musc Denies abnormal gait, Denies myalgias, Denies arthralgias, Denies numbness and Denies tingling Skin/Breast Denies rash, Denies unusual bruising and Denies wounds Neuro Denies abnormal gait, Denies dizziness, Denies headache(s), Denies memory loss, Denies numbness, Denies Sensory deficit (Neuro), Denies tingling and Denies weakness Psych Denies anxiety, Denies depression, Denies memory loss Endo Denies cold intolerance, Denies fatigue, Denies heat intolerance, Denies polydipsia and Denies polyuria Aller/Immun Denies wheezing Physical exam (Primary Care) Vital Signs: Last Vital Signs Temp 97.7 F 08/27/24 09:03 Pulse 83 08/27/24 09:03 Resp 16 08/27/24 09:03 BP 151/74 H 08/27/24 09:03 Pulse Ox 97 08/27/24 09:03 Oxygen Delivery Method Room Air 08/27/24 09:03 BMI result Body Mass Index 26.8 Tobacco/Smoking Status: Tobacco use Status Tobacco use date assessed 08/27/24 08/27/24 09:07 Patient Tobacco Use Status Current everyday Tobacco 08/27/24 08:36 Tobacco use type Cigarette 08/27/24 08:36 e-Cigarette/Vaping Use Never Used 08/27/24 08:36 Thrive Assessment: Date of Thrive Assessment Date Thrive assessed 08/27/24 08/27/24 08:54 Const Other: General: no acute distress and well developed Nutritional Appearance: well nourished Orientation/consciousness: patient oriented x3 HENMT Head: Yes normocephalic and Yes atraumatic Eyes General: appearance normal, both eyes and all related structures Pupils: Equal, round and reactive pupils present EOM: EOMs intact bilaterally Resp Effort & Inspection: normal respiratory effort Auscultation: clear to auscultation bilaterally Cardio Rate: regular rate Rhythm: regular rhythm Heart sounds: S1 normal heart sound present, S2 normal heart sound present, no gallops, no murmurs and no rubs GI Palpation (GI): No Abdominal aortic bruit present, Soft to palpation, nontender, No hepatosplenomegaly present and No Rebound tenderness present Auscultation: normal bowel sounds General: Yes no CVA tenderness Back/Spine/Pelvis Back: no CVA tenderness Cervical Spine: cervical ROM normal and No Cervical spine tenderness Thoracic/Lumbar Spine: thoraco-lumbar ROM normal, No pain with thoraco-lumbar ROM, No thoracic spinal tenderness and No lumbar spinal tenderness Extrem General: Yes normal to inspection, No edema and No calf tenderness Skin General: warm and dry. Normal skin color. Normal skin turgor Neuro General: patient oriented x3, gait normal and no focal neuro deficit Cranial nerves: Yes Equal, round and reactive pupils present Cognition (Neuro): normal cognition Gait exam (Neuro): Normal gait present Sensory Exam: No Sensory deficit (Neuro) Psych Appearance: grossly normal Affect: normal affect Attitude: cooperative Thought process: Normal thought process present Coding Level of Care Code Est Pt Level 4 (84310) Diagnoses Other hyperlipidemia E78.49 Hyperlipidemia type: other hyperlipidemia Folate deficiency E53.8 Assessment & Plan Assessment & Plan (1) Hyperlipidemia: Code(s): E78.5 - Hyperlipidemia, unspecified Category: Medical Qualifiers: Hyperlipidemia type: other hyperlipidemia Qualified Code(s): E78.49 - Other hyperlipidemia Plan: Recent triglycerides, total cholesterol, and LDL levels are elevated, 219, 244, and 155 respectively; previous levels were 253, 266, and 167 respectively. Recent HDL level is normal. Advised to limit foods high in saturated fat and avoid foods high in trans fat. Routine exercise encouraged. Fast for 10-12 hours, may drink water, perform lipid panel blood work 2-3 days before next visit. Follow-up in 2 months for hyperlipidemia or sooner with symptoms or concerns. Verbalized understanding and agreed with the treatment plan. (2) Folate deficiency: Code(s): E53.8 - Deficiency of other specified B group vitamins Category: Medical Plan: Continue current treatment regimen. Will check folate level and make changes as needed. Verbalized understanding and agreed with the plan. Orders: Orders Folate Today E53.8 - Deficiency of other specified B group vitamins Lipid Panel 3 Months E78.49 - Other hyperlipidemia Medications: New atorvastatin 80 mg PO BEDTIME 90 days 90 tabs 1RF Refilled fenofibrate 54 mg PO DAILY 30 days 30 tabs 3RF Discontinued atorvastatin Discontinued Reason: Doctor's Order 40 mg PO BEDTIME 90 tabs 0RF
[2024-08-27 09:03] VITALS: BP 151/74; PULSE 83; RESP 16; TEMP 36.5; O2SAT 97; BMI 26.8
[2024-08-27 09:41] VITALS: BP 130/70
== END 2024-08-27 09:47 | disposition home or self-care (01) ==
LOC: HO.HMCFM 08:54
PROVIDERS: PCP Nurse Practitioner Family; Visit Provider Nurse Practitioner Family
DX: E78.49 Other hyperlipidemia (principal); E53.8 Deficiency of other specified B group vitamins

== ENCOUNTER 2024-09-19 14:25 | Outpatient (REF) | payer MEDICARE, MEDICAID, SELFPAY ==
--- NOTE | ~2024-09-19 | US_ITS ---
EXAMINATION: US KIDNEY BILATERAL HISTORY: N20.0 - Calculus of kidney TECHNIQUE: Real-time grayscale ultrasound imaging of the kidneys was performed and images were reviewed. COMPARISON: Comparison is made with the prior examination dated 12/08/2023. FINDINGS: Right kidney: The right kidney measures 11.4 x 5.4 x 6.6 cm. Renal parenchymal echotexture and thickness are normal. There are no masses. There is a 7 mm nonobstructing calculus in the interpolar region. There is no hydronephrosis. Left Kidney: The left kidney is surgically absent. US/US renal BI IMPRESSION: Status post left nephrectomy. 7 mm nonobstructing right renal calculus. Electronically signed by: Lazaro Scott MD 09/19/2024 03:33 PM EDT
== END 2024-09-19 14:26 | disposition home or self-care (01) ==
LOC: HO.US 14:25
PROVIDERS: PCP Nurse Practitioner Family; Visit Provider Nurse Practitioner Family
DX: N20.0 Calculus of kidney (principal); Z90.5 Acquired absence of kidney
CPT/HCPCS: 76775

== ENCOUNTER → 2024-09-19 14:26 | Outpatient (BNV) | payer MEDICARE, MEDICAID, SELFPAY | PROVIDERS: PCP Nurse Practitioner Family; Visit Provider Radiology Diagnostic Radiology | DX: N20.0 Calculus of kidney (principal); Z90.5 Acquired absence of kidney | CPT/HCPCS: 76775 ==

== ENCOUNTER 2024-09-20 09:27 | Outpatient (REF) | payer MEDICARE, MEDICAID, SELFPAY ==
--- NOTE | ~2024-09-20 | CT_ITS ---
EXAMINATION: CT LUNG SCREENING HISTORY: F17.210 - Nicotine dependence, cigarettes, uncomplicated TECHNIQUE: Low dose axial images were obtained from the sternal notch to upper abdomen without IV contrast per standard departmental protocol. Sagittal and coronal reformatted images were also obtained and reviewed. One or more of the following techniques was used for dose reduction: Automated exposure control, adjustment of the mA and/or kV according to patient size, use of iterative reconstruction technique. DLP: 44 mGy-cm COMPARISON: There are no prior studies available for comparison. FINDINGS: Lung nodules: There is a tiny 2 mm nodule in the left upper lobe (series 4, image 47). No additional pulmonary nodules are identified. Emphysema: mild Coronary Calcification: mild Aortic Arch Calcification: mild Potentially Significant Incidentals : none Additional Chest Findings: There is no pleural or pericardial effusion. No mediastinal or axillary lymphadenopathy is identified. Visualized upper abdomen: The visualized portions of the liver, spleen, and adrenals have an unremarkable unenhanced appearance. CT/CT lung screening IMPRESSION: No suspicious pulmonary nodules are identified. LUNG-RADS ASSESSMENT: Lung-RADS 2: Benign MANAGEMENT: Continue annual screening with LDCT in 12 months Category S: N/A Electronically signed by: Lazaro Scott MD 09/20/2024 10:31 AM EDT
== END 2024-09-20 09:28 | disposition home or self-care (01) ==
LOC: HO.CT 09:27
PROVIDERS: PCP Nurse Practitioner Family; Visit Provider Physician Assistant Medical
DX: Z12.2 Encounter for screening for malignant neoplasm of respiratory organs (principal); F17.210 Nicotine dependence, cigarettes, uncomplicated
CPT/HCPCS: 71271; G0296

== ENCOUNTER → 2024-09-20 09:29 | Outpatient (BNV) | payer MEDICARE, MEDICAID, SELFPAY | PROVIDERS: PCP Nurse Practitioner Family; Visit Provider Radiology Diagnostic Radiology | DX: F17.210 Nicotine dependence, cigarettes, uncomplicated (principal) | CPT/HCPCS: 71271 ==

== ENCOUNTER 2024-09-20 09:56 | Outpatient (AMB) | payer MEDICARE, MEDICAID, SELFPAY ==
--- NOTE | 2024-09-20 07:41 | A.OFFVIS_ITS ---
Intake Visit Reasons: LDCT Allergies No Known Allergies Allergy (Verified 08/27/24 09:28) HPI HPI LDCT: Details: Initial visit for this 68yo smoker with a 26PYH. Patient started smoking at age 15 for 53 years at 1/2ppd. . Denies marijuana use. Denies second hand smoke exposure. Denies exposure to chemicals or substances like asbestos. . Family history of lung cancer. Brother last year. Denies personal history of cancers. Denies chest CT in last year. has doens LDCT prior - missed last year. . Denies recent travel outside the [place]. Denies recent respiratory illness or recent hospitalization for respiratory issues. Denies testing positive for COVID. Admits receiving COVID Vaccine. . Denies fever, chills, new/worsening cough, hemoptysis, hoarseness or dysphagia. Denies significant chest pain, significant dyspnea or unintentional weight loss. Patient Lung Cancer Screening Questionnaire reviewed with patient by provider. . Shared Decision Making Completed. Patient meets criteria. Discussed in detail with patient, the risk vs benefit of LDCT screening. Patient consents to proceed with scan. Discussed smoking cessation. [facility] Medical History (Updated 09/20/24 @ 10:11 by Jillian Miller PA-C) GERD (gastroesophageal reflux disease) Postmenopausal Renal calculus, right Solitary kidney, acquired Nicotine dependence, cigarettes, uncomplicated Stress incontinence Hyperlipidemia Low back pain Surgical History (Updated 07/23/24 @ 10:46 by Jillian Miller PA-C) History of tubal ligation History of left nephrectomy Family History Brother Lung cancer Brain cancer Social History (Updated 09/20/24 @ 10:11 by Jillian Miller PA-C) Housing: Apartment Alcohol intake: current Alcohol intake frequency: 0-2 drinks per day Alcohol type: beer Patient Tobacco Use Status: Current everyday Tobacco user Tobacco use type: Cigarette Cigarettes Per Day: 10 Years Smoked: (onset 15yo, 1/2ppd x 53yrs - 26PYH) e-Cigarette/Vaping Use: Never Used Second Hand Smoke Exposure: No service: No Current occupational status: retired Sexual orientation: Straight/Heterosexual Gender identity: Female Cognitive needs: No Hearing needs: No Vision needs: No Assessment & Plan Assessment & Plan (1) Nicotine dependence, cigarettes, uncomplicated: Comment: (onset 15yo, 2ppd x 53yrs - 26PYH) Code(s): F17.210 - Nicotine dependence, cigarettes, uncomplicated Category: Medical Plan: - SDM visit completed today in office. - Patient meets criteria for LDCT for lung cancer screening purposes and is asymptomatic. - Smoking cessation counseling offered. Patients can always call [phone]. - Will arrange for a LDCT scan of the chest for screening purposes at [facility]. - Risks, benefits, and alternatives were discussed in detail and the patient agrees to proceed. - Risks discussed include but are not limited to: radiation exposure, anxiety during testing and while awaiting results, false negatives, false positives and possibility of additional intervention such as further imaging or surgical procedures for benign disease. - Benefits are obviously detection of lung cancer at an early stage which can lead to improved outcomes. - Discussed the importance of screening program compliance with adherence to yearly LDCT scan as scheduled - or sooner interval scans for personalized screening regimen. - Discussed follow up plan. Our office will send a letter discussing results and if needed set up phone call and office visit based on CT findings. - Patient educated on results categorization and the management decisions for suspicious findings potentially found on the screening LDCT scan. Any patient with a Lung RADS score of 3 or 4 will be reviewed by a multidisciplinary team at [facility] to form a plan of action in regards to scan findings. - If further work up is warranted for a suspicious lung finding this will be followed by the Lung Cancer Screening program in conjunction with the Thoracic Surgery Department at [facility]. - A copy of the office note and LDCT will be sent to the patient's PCP - as well as documentation on any associated further plans of care. - Incidental findings on LDCT are the PCP's responsibility. These findings are indicated with an S finding on the LDCT Assessment. A note discussing the findings will be sent to the PCP who is then responsible for further management. - All questions answered.? Coding Level of Care Code Lung Cancer Screening G0296 Diagnoses Nicotine dependence, cigarettes, uncomplicated F17.210
== END 2024-09-20 10:17 | disposition home or self-care (01) ==
LOC: HO.HPS 09:57
PROVIDERS: PCP Nurse Practitioner Family; Referring Provider Nurse Practitioner Family; Visit Provider Physician Assistant Medical
DX: F17.210 Nicotine dependence, cigarettes, uncomplicated (principal)
CPT/HCPCS: G0296

== ENCOUNTER 2024-10-01 08:23 | Outpatient (REF) | payer MEDICARE, MEDICAID, SELFPAY ==
[2024-10-01 09:13] LABS: Blood Urea Nitrogen 17 mg/dL (9-16); Estimated Glomerular Filt Rate 58
== END 2024-10-01 08:24 | disposition home or self-care (01) ==
LOC: HO.LAB 08:23
PROVIDERS: PCP Nurse Practitioner Family; Visit Provider Nurse Practitioner Family
DX: N20.0 Calculus of kidney (principal); Z90.5 Acquired absence of kidney
CPT/HCPCS: 36415; 82565; 84520

== ENCOUNTER 2024-10-03 14:57 | Outpatient (AMB) | payer MEDICARE, MEDICAID, SELFPAY ==
--- NOTE | 2024-10-03 15:20 | A.OFFVIS_ITS ---
Intake Visit Reasons: 6m/US/labs(set) Intake Note: Patient is present for 6M/US/LABS Urology Medication:MIRABEGRON Antibiotic Allergy:NONE Blood Thinner:NONE TODAY'S PVR: 0ML'S Spin Table Operator Required: No Allergies No Known Allergies Allergy (Verified 10/03/24 21:43) Medication List - Last Reconciled 10/03/24 by KASSI Zhang- atorvastatin 80 mg PO BEDTIME 90 days fenofibrate 54 mg PO DAILY 30 days folic acid 0.4 mg PO DAILY 30 days gabapentin 200 mg (2 x 100 mg) PO BEDTIME mirabegron ER (Myrbetriq) 25 mg PO DAILY 90 days omeprazole 20 mg PO DAILY 30 days HPI Comments Details: Eveline is a pleasant 68-year-old female patient of Dr. Murillo. She has a past medical history of stress incontinence, hyperlipidemia, back pain, and nicotine dependence. She presents to the office today for a follow up of her nephrolithiasis, solitary kidney, and mixed urinary incontinence. In discussion with the patient today she reports to be doing and feeling well. She discusses continuing to work on limiting/quitting her cigarette smoking. She reports being down to approximately 3-5 cigarettes per day. Recent renal imaging results reviewed with the patient today 10/04 right kidney with normal parenchymal echotexture and thickness. There are no renal masses. There is a 7 mm nonobstructing calculus in the interpolar region. There is no hydronephrosis. The left kidney is surgically absent. She currently denies any bothersome urinary issues or concerns. She reports compliance with Myrbetriq 25 mg daily in discusses how extremely helpful with her episodes of urgency and frequency. In office urinalysis results reviewed with the patient today. PVR 0 mL. When asked she denies urinary urgency, urinary frequency, nocturia, hematuria, dysuria, foul smelling urine, changes to urinary stream, flank pain, fever, and or chills. We discussed importance of quitting nicotine dependence for overall health and well-being. She otherwise offers no other issues or concerns at this time. BUN:07/03 15, 07/05 15, 07/05 13, 10/04 17 Creatinine: 07/03 0.99, 07/05 0.79, 07/05 0.95, 10/04 0.95 [facility] Medical History GERD (gastroesophageal reflux disease) Postmenopausal Renal calculus, right Solitary kidney, acquired Nicotine dependence, cigarettes, uncomplicated Stress incontinence Hyperlipidemia Low back pain Surgical History (Updated 07/23/24 @ 10:46 by Jillian Miller PA-C) History of tubal ligation History of left nephrectomy Family History Brother Lung cancer Brain cancer Social History (Updated 09/20/24 @ 10:11 by Jillian Miller PA-C) Housing: Apartment Alcohol intake: current Alcohol intake frequency: 0-2 drinks per day Alcohol type: beer Patient Tobacco Use Status: Current everyday Tobacco user Tobacco use type: Cigarette Cigarettes Per Day: 10 Years Smoked: (onset 15yo, 1/2ppd x 53yrs - 26PYH) e-Cigarette/Vaping Use: Never Used Second Hand Smoke Exposure: No service: No Current occupational status: retired Sexual orientation: Straight/Heterosexual Gender identity: Female Cognitive needs: No Hearing needs: No Vision needs: No Review of Systems Const Reports no additional complaints Eyes Reports no additional complaints ENT Reports no additional complaints Card Reports as per HPI Resp Reports no additional complaints GI Reports no additional complaints Reports as per HPI Musc Reports as per HPI Neuro Reports no additional complaints Psych Reports no additional complaints Endo Reports no additional complaints Trent/Lymph Reports no additional complaints Aller/Immun Reports no additional complaints Physical Exam Const General: cooperative, healthy appearing, comfortable, no acute distress, well developed, alert and awake Orientation/consciousness: patient oriented x3 Limitations: no limitations HEENT Head: Yes normal to inspection, Yes normocephalic and Yes atraumatic Ears: hearing grossly normal bilaterally Eyes General: appearance normal, both eyes and all related structures Neck Neck: Yes normal visual inspection and Yes trachea midline Chest Chest palpation & inspection: normal inspection of the chest Resp Effort & Inspection: normal respiratory effort and able to speak in complete sentences Cardio Rate: regular rate GI Inspection: Yes normal to inspection General: Yes no CVA tenderness Back/Spine/Pelvis Back: no CVA tenderness Skin General skin exam: no rashes or lesions noted Neuro General: patient oriented x3 Extrem General: Yes normal to inspection Psych Appearance: grossly normal and well kempt Mental Status: mental status grossly normal Speech and movement: Normal speech and movement present and Clear speech present Affect: normal affect Attitude: cooperative Thought process: Normal thought process present Thought content: Normal thought content present Insight: Fair insight present (Psych) Judgement: Fair judgement present (Psych) Office Procedures Post Void Residual Post Residual Void Post Void Residual (PVR): 0 [id number] Void Residual by ultrasound Results AMB Urinalysis, Automated UA Leukoctes 0 Mendy/uL Last Edit by DEEPA Bartlett on 10/03/24 16:29 UA Nitrite Negative Last Edit by Rina Hull [facility] on 10/03/24 16:29 UA Urobilinogen 0.2 mg/dL Last Edit by Rina Hull [facility] on 10/03/24 16:2 9 UA Protein 15 mg/dL [facility] 10/03/[facility] 16:29 UA pH 6.0 Last Edit by Rina Hull [facility] on 10/03/24 16:29 UA Blood 0 Jayden/uL Last Edit by Rina Hull [facility] on 10/03/24 16:29 UA Specific [place] 1.015 Last Edit by Rina Hull [facility] on 10/03/24 16: 29 UA Ketone Negative Last Edit by Rina Hull [facility] on 10/03/24 16:29 UA Bilirubin 0 mg/dL Last Edit by Rina Hull [facility] on 10/03/24 16:29 UA Glucose 0 mg/dL Last Edit by Rina Hull [facility] on 10/03/24 16:29 Results Reviewed Results Reviewed: Laboratory Last Values Urine pH (Auto) 6.0 10/03/24 16:28 Specific [place] (Auto) 1.015 10/03/24 16:28 Urine Protein (Auto) 15 mg/dL 10/03/24 16:28 Glucose (UA)(Auto) 0 mg/dL 10/03/24 16:28 Urine Ketones (Auto) Negative 10/03/24 16:28 Urine Blood (Auto) 0 Jayden/uL 10/03/24 16:28 Urine Nitrite (Auto) Negative 10/03/24 16:28 Urine Bilirubin (Auto) 0 mg/dL 10/03/24 16:28 Urine Urobilinogen (Auto) 0.2 mg/dL 10/03/24 16:28 Leukocyte Esterase (Auto) 0 Mendy/uL 10/03/24 16:28 Date of Service: 09/19/24 Procedure(s): US renal BI FINDINGS: Right kidney: The right kidney measures 11.4 x 5.4 x 6.6 cm. Renal parenchymal echotexture and thickness are normal. There are no masses. There is a 7 mm nonobstructing calculus in the interpolar region. There is no hydronephrosis. Left Kidney: The left kidney is surgically absent. IMPRESSION: Status post left nephrectomy. 7 mm nonobstructing right renal calculus. Assessment & Plan Assessment & Plan (1) Nephrolithiasis: Code(s): N20.0 - Calculus of kidney Category: Medical (2) Solitary kidney, acquired: Comment: (donated Left kidney to Brother) Code(s): Z90.5 - Acquired absence of kidney Category: Medical (3) Urinary frequency: Code(s): R35.0 - Frequency of micturition Category: Medical (4) Incontinence: Code(s): R32 - Unspecified urinary incontinence Category: Medical Plan In office urinalysis results reviewed with the patient today; as noted above. PVR 0 mL. Recent renal imaging results reviewed with the patient today; as noted above; we discussed further interventions to include KUB to further assess potential for ESWL given solitary kidney. However patient would like to continue with surveillance monitoring at this time. We did discussed the importance of adequate hydration relation to nephrolithiasis as well as overall health and well-being. We also discussed the importance of limiting/quitting nicotine dependence for overall health and well-being. She currently denies any bothersome urinary issues or concerns. She reports be happy with current voiding parameters on 25 mg of Myrbetriq; will continue; refill provided. Will continue with surveillance monitoring at this time. We discussed further workup to include 24 hour Litholink and labs. BUN and creatinine results reviewed with the patient today; as noted above Will obtain renal ultrasound in 6 months. Follow-up in 6 months with imaging and labs to be completed prior; or sooner with any issues, concerns, and or questions. Orders: Orders AMB Urinalysis Automated Today Z13.9 - Encounter for screening, unspecified US renal BI 6 Months N20.0 - Calculus of kidney XR KUB 6 Months N20.0 - Calculus of kidney Medications: Refilled mirabegron ER (Myrbetriq) 25 mg PO DAILY 90 tabs 4RF 90 days N30.10 - Interstitial cystitis (chronic) without hematuria, N32.81 - Overactive bladder, R35.1 - Nocturia, R39.15 - Urgency of urination Patient Instructions: The patient had an opportunity to ask questions regarding the treatment plan. All questions were answered. Physical exam, labs, and imaging were discussed and reviewed in detail. As well as risks, benefits, and discussion of treatment choices. No major barriers to understanding were identified. The patient expressed understanding and agreement with the above treatment plan. The patient was made aware they should contact our office by phone for worsening of their current condition, the appearance of new symptoms, or with any questions or concerns. Compliance is encouraged with any medications and follow up testing that is ordered. It is a privilege to be allowed the opportunity to participate in? your urological care.? Again, if you have any questions or concerns If you have any questions or concerns please do not hesitate to contact me. The office is [phone]. This note is constructed using voice recognition software. While every effort has been made to ensure accuracy audio/video technician errors may have been included. Yours sincerely, ZAKI Zhang Coding Level of Care Code Est Pt Level 3 (11952) Complex EM visit Add On G2211 Diagnoses Nephrolithiasis N20.0 Solitary kidney, acquired Z90.5 Urinary frequency R35.0 Incontinence R32 CPT Codes Post Residual Void - PVR CPT Code: 44921-Uugr Void Residual by ultrasound ([id number])
== END 2024-10-03 16:15 | disposition home or self-care (01) ==
PROVIDERS: PCP Nurse Practitioner Family; Visit Provider Nurse Practitioner Family
DX: N20.0 Calculus of kidney (principal); Z90.5 Acquired absence of kidney; R35.0 Frequency of micturition; R32 Unspecified urinary incontinence; Z13.9 Encounter for screening, unspecified
CPT/HCPCS: 99213; G2211

== ENCOUNTER → 2024-10-03 14:57 | Outpatient (BNVA) | payer MEDICARE, MEDICAID, SELFPAY | PROVIDERS: PCP Nurse Practitioner Family; Visit Provider Nurse Practitioner Family | DX: N20.0 Calculus of kidney (principal); R35.0 Frequency of micturition; R32 Unspecified urinary incontinence; Z90.5 Acquired absence of kidney | CPT/HCPCS: 51798; 81003; 99212 ==

== ENCOUNTER 2024-10-30 08:37 | Outpatient (REF) | payer MEDICARE, MEDICAID, SELFPAY ==
[2024-10-30 11:57] LABS: Cholesterol 223 mg/dL (<200); HDL Cholesterol 46 mg/dL (>40); Triglycerides 174 mg/dL (<150)
== END 2024-10-30 08:38 | disposition home or self-care (01) ==
LOC: HO.WFDLDS 08:37
PROVIDERS: Visit Provider Nurse Practitioner Family
DX: E78.49 Other hyperlipidemia (principal)
CPT/HCPCS: 36415; 80061

== ENCOUNTER 2024-11-01 08:48 | Outpatient (AMB) | payer MEDICARE, MEDICAID, SELFPAY ==
--- NOTE | 2024-11-01 08:51 | MHC.PC.OV ---
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 Is last menstrual period known: No Post menopausal: No Patient : No Allergies No Known Allergies Allergy (Verified 11/01/24 09:03) Medication List - Last Reconciled 11/01/24 by Waldo Murillo CNP atorvastatin 80 mg PO BEDTIME 90 days fenofibrate 54 mg PO DAILY 30 days folic acid 0.4 mg PO DAILY 30 days gabapentin 200 mg (2 x 100 mg) PO BEDTIME mirabegron ER (Myrbetriq) 25 mg PO DAILY 90 days omeprazole 20 mg PO DAILY 30 days Tobacco use date assessed: 11/01/24 Fall risk assessment: No Falls in past year Last assessed Fall Risk: 11/01/24 Dental Screening Dental Screen Date: 11/01/24 Did you have a dental visit in the last 12 months?: Yes Did you have a dental problem in the last 6 months where you did not have access to dental care?: No Was dental information given to patient?: Patient has dentist HPI HPI Comments History of Present Illness Details 68-year-old female presents for hyperlipidemia follow-up. She admits to taking her medications as prescribed without adverse reactions. She notes that she has been making healthy dietary choices, limiting saturated fat and avoiding trans fat. She walks regularly. She offers no complaints and denies acute symptoms at this time. [facility] Medical History GERD (gastroesophageal reflux disease) Postmenopausal Renal calculus, right Solitary kidney, acquired Nicotine dependence, cigarettes, uncomplicated Stress incontinence Hyperlipidemia Low back pain Surgical History (Updated 07/23/24 @ 10:46 by Jillian Miller PA-C) History of tubal ligation History of left nephrectomy Family History Brother Lung cancer Brain cancer Social History (Updated 09/20/24 @ 10:11 by Jillian Miller PA-C) Housing: Apartment Alcohol intake: current Alcohol intake frequency: 0-2 drinks per day Alcohol type: beer Patient Tobacco Use Status: Current everyday Tobacco user Tobacco use type: Cigarette Cigarettes Per Day: 10 Years Smoked: (onset 15yo, 1/2ppd x 53yrs - 26PYH) e-Cigarette/Vaping Use: Never Used Second Hand Smoke Exposure: No service: No Current occupational status: retired Sexual orientation: Straight/Heterosexual Gender identity: Female Cognitive needs: No Hearing needs: No Vision needs: No Questionnaire Thrive Questionnaire Date Thrive assessed: 08/27/24 I am a: Patient What is your living situation today?: I have a steady place to live Within the past 12 months, did the food you bought not last and you didn't have the money to get more?: Never true Within the past 12 months, did you worry whether your food would run out before you got money to buy more?: Never true Do you have trouble paying for medicines?: I choose not to answer this question Do you have trouble getting transportation to medical appointments?: No Do you have trouble paying your heating and electricity bill?: No Do you have trouble taking care of your child, family member or friend?: No Do you have trouble with day-to-day activities such as bathing, preparing meals, shopping, managing finances, etc.?: No Are you currently unemployed and looking for a job?: No Are you interested in more education?: No Please select the resources that you would like help with: None Currently or been in a relationship where the following occur: I choose not to answer THRIVE Score: 0 AUDIT C Alcohol Use Questionnaire (AUDIT-C) 1. How often do you have a drink containing alcohol?: 2-3 times a week 2. How many drinks containing alcohol do you have on a typical day when you are drinking?: 1 or 2 3. How often do you have six or more drinks on one occasion?: Never Total Score: 3 ERIK-7 AMB Questionnaire ERIK-7 Date ERIK - 7 assessed: 06/25/24 Feeling nervous, anxious, or on edge: 0 = Not at all Not being able to stop or control worryin = Not at all Worrying too much about different things: 0 = Not at all Trouble relaxin = Not at all Being so restless that it is hard to sit still: 0 = Not at all Becoming easily annoyed or irritable: 0 = Not at all Feeling afraid as if something awful might happen: 0 = Not at all Total ERIK-7 score (0-4 normal; 5-9 mild; 10-14 moderate; 15-21 severe): 0 Source: Developed by Drs. Lazaro Meeks, Ania Gaytan, Juan Zhang and colleagues, with an educational donta from [employer]. Review of Systems Const Details: Const Denies chills, Denies fatigue, Denies fever(s), Denies headache(s) and Denies weakness ENT Denies dizziness and Denies headache(s) Card Denies chest pain, Denies lightheadedness, Denies dyspnea and Denies other (Palpitations) Resp Denies cough, Denies dyspnea, Denies wheezing and Denies other ( shortness of breath) GI Denies abdominal pain, Denies melena, Denies hematochezia, Denies change in bowel habits, Denies dyspepsia and Denies nausea Denies hematuria and Denies dysuria Musc Denies abnormal gait, Denies myalgias, Denies arthralgias, Denies numbness and Denies tingling Skin/Breast Denies rash, Denies unusual bruising and Denies wounds Neuro Denies abnormal gait, Denies dizziness, Denies headache(s), Denies memory loss, Denies numbness, Denies Sensory deficit (Neuro), Denies tingling and Denies weakness Psych Denies anxiety, Denies depression, Denies memory loss Endo Denies cold intolerance, Denies fatigue, Denies heat intolerance, Denies polydipsia and Denies polyuria Aller/Immun Denies wheezing Physical exam (Primary Care) Vital Signs: Last Vital Signs Temp 97.8 F 11/01/24 08:56 Pulse 88 11/01/24 08:56 Resp 16 11/01/24 08:56 BP 149/73 H 11/01/24 08:56 Pulse Ox 97 11/01/24 08:56 Oxygen Delivery Method Room Air 11/01/24 08:56 BMI result Body Mass Index 27.3 Tobacco/Smoking Status: Tobacco use Status Tobacco use date assessed 11/01/24 11/01/24 08:59 Patient Tobacco Use Status Current everyday Tobacco 11/01/24 08:52 Tobacco use type Cigarette 11/01/24 08:52 e-Cigarette/Vaping Use Never Used 11/01/24 08:52 Thrive Assessment: Date of Thrive Assessment Date Thrive assessed 08/27/24 11/01/24 08:52 Currently or been in a relationship where the following occur: I choose not to answer Const Other: General: no acute distress and well developed Nutritional Appearance: well nourished Orientation/consciousness: patient oriented x3 HENMT Head: Yes normocephalic and Yes atraumatic Eyes General: appearance normal, both eyes and all related structures Pupils: Equal, round and reactive pupils present EOM: EOMs intact bilaterally Resp Effort & Inspection: normal respiratory effort Auscultation: clear to auscultation bilaterally Cardio Rate: regular rate Rhythm: regular rhythm Heart sounds: S1 normal heart sound present, S2 normal heart sound present, no gallops, no murmurs and no rubs GI Palpation (GI): No Abdominal aortic bruit present, Soft to palpation, nontender, No hepatosplenomegaly present and No Rebound tenderness present Auscultation: normal bowel sounds General: Yes no CVA tenderness Back/Spine/Pelvis Back: no CVA tenderness Cervical Spine: cervical ROM normal and No Cervical spine tenderness Thoracic/Lumbar Spine: thoraco-lumbar ROM normal, No pain with thoraco-lumbar ROM, No thoracic spinal tenderness and No lumbar spinal tenderness Extrem General: Yes normal to inspection, No edema and No calf tenderness Skin General: warm and dry. Normal skin color. Normal skin turgor Neuro General: patient oriented x3, gait normal and no focal neuro deficit Cranial nerves: Yes Equal, round and reactive pupils present Cognition (Neuro): normal cognition Gait exam (Neuro): Normal gait present Sensory Exam: No Sensory deficit (Neuro) Psych Appearance: grossly normal Affect: normal affect Attitude: cooperative Thought process: Normal thought process present Coding Level of Care Code Est Pt Level 3 (90379) Diagnoses Other hyperlipidemia E78.49 Hyperlipidemia type: other hyperlipidemia Assessment & Plan Assessment & Plan (1) Hyperlipidemia: Code(s): E78.5 - Hyperlipidemia, unspecified Category: Medical Qualifiers: Hyperlipidemia type: other hyperlipidemia Qualified Code(s): E78.49 - Other hyperlipidemia Plan: Recent triglyceride, total cholesterol, and LDL levels are elevated, 174, 223, and 143 respectively, previous levels were 219, 244, and 155 respectively. Continue current treatment regimen. Advised to limit foods high in saturated fat and avoid foods high in trans fat. Routine exercise encouraged. Fast for 10-12 hours, may drink water, performed lipid panel blood work 2-3 days before next visit. Follow-up in 2 months. Return sooner with symptoms or concerns. Verbalized understanding and agreed with the plan. Orders: Orders Folate Today E53.8 - Deficiency of other specified B group vitamins Lipid Panel 2 Months E78.49 - Other hyperlipidemia Medications: Refilled omeprazole 20 mg PO DAILY 30 caps 3RF 30 days
[2024-11-01 08:56] VITALS: BP 149/73; PULSE 88; RESP 16; TEMP 36.6; O2SAT 97; BMI 27.3
[2024-11-01 09:12] VITALS: BP 120/70
== END 2024-11-01 09:12 | disposition home or self-care (01) ==
LOC: HO.HMCFM 08:49
PROVIDERS: PCP Nurse Practitioner Family; Visit Provider Nurse Practitioner Family
DX: E78.49 Other hyperlipidemia (principal)

== ENCOUNTER → 2024-11-01 08:48 | Outpatient (BNVA) | payer MEDICARE, MEDICAID, SELFPAY | PROVIDERS: PCP Nurse Practitioner Family; Visit Provider Nurse Practitioner Family | DX: E53.8 Deficiency of other specified B group vitamins (principal); E78.49 Other hyperlipidemia | CPT/HCPCS: 99212 ==

== ENCOUNTER 2025-01-01 08:40 | Outpatient (REF) | payer MEDICARE, MEDICAID, SELFPAY ==
[2025-01-01 11:41] LABS: Cholesterol 244 mg/dL (<200); HDL Cholesterol 44 mg/dL (>40); Triglycerides 219 mg/dL (<150)
[2025-01-01 12:19] LABS: Folate 11.8 ng/mL (> or = 4.0)
== END 2025-01-01 08:41 | disposition home or self-care (01) ==
LOC: HO.WFDLDS 08:40
PROVIDERS: Visit Provider Nurse Practitioner Family
DX: E53.8 Deficiency of other specified B group vitamins (principal); E78.49 Other hyperlipidemia
CPT/HCPCS: 36415; 80061; 82746

== ENCOUNTER 2025-01-03 09:12 | Outpatient (REF) | payer MEDICARE, MEDICAID, SELFPAY ==
[2025-01-03 11:39] LABS: Hematocrit 46.2 % (37.0-47.0); Hemoglobin 15.1 g/dl (12.0-16.0); Mean Corpuscular HGB Conc 32.7 g/dl (31.0-35.0); Mean Corpuscular Hemoglobin 29.5 pg (27.0-33.0); Mean Corpuscular Volume 90.2 fL (80.0-98.0); NRBC Abs Auto 0.000 X10*3/uL (0.0-0.012); NRBC Pct Auto 0.0 /100WBC (0.0-0.2); Platelet Count 280 X10*3/uL (160-400); Red Blood Count 5.12 X10*6/uL (4.20-5.50); White Blood Count 6.2 X10*3/uL (4.8-10.8)
[2025-01-03 12:36] LABS: Alanine Aminotransferase 27 U/L (0-31); Albumin Level 4.4 g/dL (3.5-5.0); Alkaline Phosphatase 97 U/L (39-117); Anion Gap 10 (12-20); Aspartate Amino Transferase 24 U/L (5-31); Blood Urea Nitrogen 15 mg/dL (9-16); Calcium 9.3 mg/dL (8.4-10.2); Carbon Dioxide 27 mmol/L (22-29); Chloride 108 mmol/L (96-108); Estimated Glomerular Filt Rate > 60; Potassium 4.3 mmol/L (3.3-5.1); Sodium 141 mmol/L (135-145); Total Protein 7.3 g/dL (6.5-8.0)
[2025-01-07 21:44] LABS: CK-BB None Detected (None Detected); CK-MB 0 % (<5); CK-MM 100 % (95-100); Creatine Kinase,Total,Serum 111 U/L (20-243)
== END 2025-01-03 09:13 | disposition home or self-care (01) ==
LOC: HO.WFDLDS 09:12
PROVIDERS: PCP Nurse Practitioner Family; Visit Provider Nurse Practitioner Family
DX: E78.49 Other hyperlipidemia (principal); K21.9 Gastro-esophageal reflux disease without esophagitis
CPT/HCPCS: 36415; 80053; 82552; 85027; 99212

== ENCOUNTER 2025-01-03 09:12 | Outpatient (AMB) | payer MEDICARE, MEDICAID, SELFPAY ==
--- NOTE | 2025-01-03 09:18 | MHC.PC.OV ---
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 Required: No Is last menstrual period known: No Post menopausal: No Patient : No Allergies No Known Allergies Allergy (Verified 01/03/25 09:44) Medication List - Last Reconciled 01/03/25 by Waldo Murillo CNP atorvastatin 80 mg PO BEDTIME 90 days fenofibrate 54 mg PO DAILY 30 days folic acid 0.4 mg PO DAILY 30 days gabapentin 200 mg (2 x 100 mg) PO BEDTIME mirabegron ER (Myrbetriq) 25 mg PO DAILY 90 days omeprazole 20 mg PO DAILY 30 days Tobacco use date assessed: 01/03/25 Fall risk assessment: No Falls in past year Last assessed Fall Risk: 01/03/25 Dental Screening Dental Screen Date: 01/03/25 Did you have a dental visit in the last 12 months?: Yes Did you have a dental problem in the last 6 months where you did not have access to dental care?: No Was dental information given to patient?: Patient has dentist HPI HPI Comments History of Present Illness Details 69-year-old female presents for hyperlipidemia follow-up. She admits to taking her medications as prescribed without adverse reactions. She notes that she has been making healthy dietary choices, limiting saturated fat and avoiding trans fat. She walks regularly. She offers no complaints and denies acute symptoms at this time. [facility] Medical History (Reviewed 10/03/24 @ 21:47 by KASSI ZhangEN[facility]) GERD (gastroesophageal reflux disease) Postmenopausal Renal calculus, right Solitary kidney, acquired Nicotine dependence, cigarettes, uncomplicated Stress incontinence Hyperlipidemia Low back pain Surgical History (Updated 07/23/24 @ 10:46 by Jillian Miller PA-C) History of tubal ligation History of left nephrectomy Family History Brother Lung cancer Brain cancer Social History (Updated 09/20/24 @ 10:11 by Jillian Miller PA-C) Housing: Apartment Alcohol intake: current Alcohol intake frequency: 0-2 drinks per day Alcohol type: beer Patient Tobacco Use Status: Current everyday Tobacco user Tobacco use type: Cigarette Cigarettes Per Day: 10 Years Smoked: (onset 15yo, 1/2ppd x 53yrs - 26PYH) e-Cigarette/Vaping Use: Never Used Second Hand Smoke Exposure: No service: No Current occupational status: retired Sexual orientation: Straight/Heterosexual Gender identity: Female Cognitive needs: No Hearing needs: No Vision needs: No Questionnaire Thrive Questionnaire Date Thrive assessed: 08/27/24 I am a: Patient What is your living situation today?: I have a steady place to live Within the past 12 months, did the food you bought not last and you didn't have the money to get more?: Never true Within the past 12 months, did you worry whether your food would run out before you got money to buy more?: Never true Do you have trouble paying for medicines?: I choose not to answer this question Do you have trouble getting transportation to medical appointments?: No Do you have trouble paying your heating and electricity bill?: No Do you have trouble taking care of your child, family member or friend?: No Do you have trouble with day-to-day activities such as bathing, preparing meals, shopping, managing finances, etc.?: No Are you currently unemployed and looking for a job?: No Are you interested in more education?: No Please select the resources that you would like help with: None Currently or been in a relationship where the following occur: I choose not to answer THRIVE Score: 0 ERIK-7 AMB Questionnaire ERIK-7 Date ERIK - 7 assessed: 06/25/24 Source: Developed by Drs. Lazaro Meeks, Ania Gaytan, Juan Zhang and colleagues, with an educational donta from [employer]. Review of Systems Const Details: Const Denies chills, Denies fatigue, Denies fever(s), Denies headache(s) and Denies weakness ENT Denies dizziness and Denies headache(s) Card Denies chest pain, Denies lightheadedness, Denies dyspnea and Denies other (Palpitations) Resp Denies cough, Denies dyspnea, Denies wheezing and Denies other ( shortness of breath) GI Denies abdominal pain, Denies melena, Denies hematochezia, Denies change in bowel habits, Denies dyspepsia and Denies nausea Denies hematuria and Denies dysuria Musc Denies abnormal gait, Denies myalgias, Denies arthralgias, Denies numbness and Denies tingling Skin/Breast Denies rash, Denies unusual bruising and Denies wounds Neuro Denies abnormal gait, Denies dizziness, Denies headache(s), Denies memory loss, Denies numbness, Denies Sensory deficit (Neuro), Denies tingling and Denies weakness Psych Denies anxiety, Denies depression, Denies memory loss Endo Denies cold intolerance, Denies fatigue, Denies heat intolerance, Denies polydipsia and Denies polyuria Aller/Immun Denies wheezing Physical exam (Primary Care) Vital Signs: Last Vital Signs Temp 97.5 F 01/03/25 09:23 Pulse 80 01/03/25 09:23 Resp 16 01/03/25 09:23 BP 174/80 H 01/03/25 09:23 Pulse Ox 99 01/03/25 09:23 Oxygen Delivery Method Room Air 01/03/25 09:23 BMI result Body Mass Index 27.1 Tobacco/Smoking Status: Tobacco use Status Tobacco use date assessed 01/03/25 01/03/25 09:26 Patient Tobacco Use Status Current everyday Tobacco 01/03/25 09:18 Tobacco use type Cigarette 01/03/25 09:18 e-Cigarette/Vaping Use Never Used 01/03/25 09:18 Thrive Assessment: Date of Thrive Assessment Date Thrive assessed 08/27/24 01/03/25 09:18 Currently or been in a relationship where the following occur: I choose not to answer Const Other: General: no acute distress and well developed Nutritional Appearance: well nourished Orientation/consciousness: patient oriented x3 HENMT Head: Yes normocephalic and Yes atraumatic Eyes General: appearance normal, both eyes and all related structures Pupils: Equal, round and reactive pupils present EOM: EOMs intact bilaterally Resp Effort & Inspection: normal respiratory effort Auscultation: clear to auscultation bilaterally Cardio Rate: regular rate Rhythm: regular rhythm Heart sounds: S1 normal heart sound present, S2 normal heart sound present, no gallops, no murmurs and no rubs GI Palpation (GI): No Abdominal aortic bruit present, Soft to palpation, nontender, No hepatosplenomegaly present and No Rebound tenderness present Auscultation: normal bowel sounds General: Yes no CVA tenderness Back/Spine/Pelvis Back: no CVA tenderness Cervical Spine: cervical ROM normal and No Cervical spine tenderness Thoracic/Lumbar Spine: thoraco-lumbar ROM normal, No pain with thoraco-lumbar ROM, No thoracic spinal tenderness and No lumbar spinal tenderness Extrem General: Yes normal to inspection, No edema and No calf tenderness Skin General: warm and dry. Normal skin color. Normal skin turgor Neuro General: patient oriented x3, gait normal and no focal neuro deficit Cranial nerves: Yes Equal, round and reactive pupils present Cognition (Neuro): normal cognition Gait exam (Neuro): Normal gait present Sensory Exam: No Sensory deficit (Neuro) Psych Appearance: grossly normal Affect: normal affect Attitude: cooperative Thought process: Normal thought process present Coding Level of Care Code Est Pt Level 4 (47572) Diagnoses Other hyperlipidemia E78.49 Hyperlipidemia type: other hyperlipidemia Assessment & Plan Assessment & Plan (1) Hyperlipidemia: Code(s): E78.5 - Hyperlipidemia, unspecified Category: Medical Qualifiers: Hyperlipidemia type: other hyperlipidemia Qualified Code(s): E78.49 - Other hyperlipidemia Plan: Recent triglycerides, total cholesterol, and LDL levels are elevated, 219, 244, and 153 respectively, previous levels were 174, 223, and 143 respectively. Fenofibrate increased to 120 mg daily and ezetimibe 10 mg daily started; advised to take as prescribed. Instructed on the risks, benefits, and potential adverse reactions of the medications. Will check CK, CBC, kidney function, and liver function today. Advised to limit foods high in saturated fat and avoid foods high in trans fat. Routine exercise encouraged. Fast for 10-12 hours, may drink water, and perform CK, liver panel, and lipid panel blood work a few days before next visit. Follow-up in 6 weeks. Return sooner with symptoms or concerns. Verbalized understanding and agreed with the plan. Orders: Orders CK, Total+Isoenzymes, Serum Today E78.49 - Other hyperlipidemia CK, Total+Isoenzymes, Serum 6 Weeks E78.49 - Other hyperlipidemia Comprehensive Met. Panel Today E78.49 - Other hyperlipidemia Complete Blood Count no Diff Today E78.49 - Other hyperlipidemia Lipid Panel 6 Weeks E78.49 - Other hyperlipidemia Liver Panel 6 Weeks E78.49 - Other hyperlipidemia Medications: New fenofibrate 120 mg PO DAILY 30 tabs 3RF 30 days ezetimibe 10 mg PO DAILY 30 tabs 3RF 30 days Discontinued gabapentin Discontinued Reason: Patient no longer taking 200 mg (2 x 100 mg) PO BEDTIME 30 caps 1RF fenofibrate Discontinued Reason: Doctor's Order 54 mg PO DAILY 30 days 30 tabs 3RF
[2025-01-03 09:23] VITALS: BP 174/80; PULSE 80; RESP 16; TEMP 36.4; O2SAT 99; BMI 27.1
[2025-01-03 09:49] VITALS: BP 138/84
== END 2025-01-03 10:11 | disposition home or self-care (01) ==
LOC: HO.HMCFM 09:13
PROVIDERS: PCP Nurse Practitioner Family; Visit Provider Nurse Practitioner Family
DX: E78.49 Other hyperlipidemia (principal)

== ENCOUNTER 2025-01-29 08:33 | Outpatient (REF) | payer MEDICARE, MEDICAID, SELFPAY | END 2025-01-29 08:34 | disposition home or self-care (01) | LOC: HO.MAMMO 08:33 | PROVIDERS: PCP Nurse Practitioner Family; Visit Provider Nurse Practitioner Family | DX: Z12.31 Encounter for screening mammogram for malignant neoplasm of breast (principal) | CPT/HCPCS: 77063; 77067 ==

== ENCOUNTER → 2025-01-29 09:00 | Outpatient (BNV) | payer MEDICARE, MEDICAID, SELFPAY | PROVIDERS: PCP Nurse Practitioner Family; Visit Provider Internal Medicine | DX: Z12.31 Encounter for screening mammogram for malignant neoplasm of breast (principal) | CPT/HCPCS: 77063; 77067 ==

== ENCOUNTER 2025-02-14 08:29 | Outpatient (REF) | payer MEDICARE, MEDICAID, SELFPAY ==
[2025-02-14 12:00] LABS: Alanine Aminotransferase 29 U/L (0-31); Albumin Level 4.5 g/dL (3.5-5.0); Alkaline Phosphatase 90 U/L (39-117); Aspartate Amino Transferase 39 U/L (5-31); Cholesterol 164 mg/dL (<200); HDL Cholesterol 40 mg/dL (>40); Total Protein 7.2 g/dL (6.5-8.0); Triglycerides 152 mg/dL (<150)
[2025-02-18 22:28] LABS: CK-BB None Detected (None Detected); CK-MB 0 % (<5); CK-MM 100 % (95-100); Creatine Kinase,Total,Serum 197 U/L (20-243)
== END 2025-02-14 08:30 | disposition home or self-care (01) ==
LOC: HO.WFDLDS 08:29
PROVIDERS: Visit Provider Nurse Practitioner Family
DX: E78.49 Other hyperlipidemia (principal)
CPT/HCPCS: 36415; 80061; 80076; 82552

== ENCOUNTER 2025-02-18 14:57 | Outpatient (AMB) | payer MEDICARE, MEDICAID, SELFPAY ==
--- NOTE | 2025-02-18 15:04 | A.OFFPC_ITS ---
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 Required: No Is last menstrual period known: No Post menopausal: No Patient : No Allergies No Known Allergies Allergy (Verified 02/18/25 15:08) Tobacco use date assessed: 02/18/25 Fall risk assessment: No Falls in past year Last assessed Fall Risk: 02/18/25 Dental Screening Dental Screen Date: 02/18/25 Did you have a dental visit in the last 12 months?: Yes Did you have a dental problem in the last 6 months where you did not have access to dental care?: No Was dental information given to patient?: Patient has dentist HPI HPI Comments History of Present Illness Details 69-year-old female presents for hyperlip idemia follow-up. She admits to taking her medications as prescribed without adverse reactions. She notes that she has been making healthy dietary choices, limiting saturated fat and avoiding trans fat. She walks regularly. She offers no complaints and denies acute symptoms at this time. [facility] Medical History GERD (gastroesophageal reflux disease) Postmenopausal Renal calculus, right Solitary kidney, acquired Nicotine dependence, cigarettes, uncomplicated Stress incontinence Hyperlipidemia Low back pain Surgical History (Updated 07/23/24 @ 10:46 by Jillian Miller PA-C) History of tubal ligation History of left nephrectomy Family History Brother Lung cancer Brain cancer Social History (Updated 09/20/24 @ 10:11 by Jillian Miller PA-C) Housing: Apartment Alcohol intake: current Alcohol intake frequency: 0-2 drinks per day Alcohol type: beer Patient Tobacco Use Status: Current everyday Tobacco user Tobacco use type: Cigarette Cigarettes Per Day: 10 Years Smoked: (onset 15yo, 1/2ppd x 53yrs - 26PYH) e-Cigarette/Vaping Use: Never Used Second Hand Smoke Exposure: No service: No Current occupational status: retired Sexual orientation: Straight/Heterosexual Gender identity: Female Cognitive needs: No Hearing needs: No Vision needs: No Questionnaire Thrive Questionnaire Date Thrive assessed: 08/27/24 I am a: Patient What is your living situation today?: I have a steady place to live Within the past 12 months, did the food you bought not last and you didn't have the money to get more?: Never true Within the past 12 months, did you worry whether your food would run out before you got money to buy more?: Never true Do you have trouble paying for medicines?: I choose not to answer this question Do you have trouble getting transportation to medical appointments?: No Do you have trouble paying your heating and electricity bill?: No Do you have trouble taking care of your child, family member or friend?: No Do you have trouble with day-to-day activities such as bathing, preparing meals, shopping, managing finances, etc.?: No Are you currently unemployed and looking for a job?: No Are you interested in more education?: No Please select the resources that you would like help with: None Currently or been in a relationship where the following occur: I choose not to answer THRIVE Score: 0 ERIK-7 AMB Questionnaire ERIK-7 Date ERIK - 7 assessed: 06/25/24 Source: Developed by Drs. Lazaro Meeks, Ania Gaytan, Juan Zhang and colleagues, with an educational donta from [employer]. Review of Systems Const Details: Const Denies chills, Denies fatigue, Denies fever(s), Denies headache(s) and Denies weakness ENT Denies dizziness and Denies headache(s) Card Denies chest pain, Denies lightheadedness, Denies dyspnea and Denies other (Palpitations) Resp Denies cough, Denies dyspnea, Denies wheezing and Denies other ( shortness of breath) GI Denies abdominal pain, Denies melena, Denies hematochezia, Denies change in bowel habits, Denies dyspepsia and Denies nausea Denies hematuria and Denies dysuria Musc Denies abnormal gait, Denies myalgias, Denies arthralgias, Denies numbness and Denies tingling Skin/Breast Denies rash, Denies unusual bruising and Denies wounds Neuro Denies abnormal gait, Denies dizziness, Denies headache(s), Denies memory loss, Denies numbness, Denies Sensory deficit (Neuro), Denies tingling and Denies weakness Psych Denies anxiety, Denies depression, Denies memory loss Endo Denies cold intolerance, Denies fatigue, Denies heat intolerance, Denies polydipsia and Denies polyuria Aller/Immun Denies wheezing Physical exam (Primary Care) Vital Signs: Last Vital Signs Temp 97.9 F 02/18/25 15:08 Pulse 78 02/18/25 15:08 Resp 16 02/18/25 15:08 BP 145/78 H 02/18/25 15:08 Pulse Ox 96 02/18/25 15:08 Oxygen Delivery Method Room Air 02/18/25 15:08 BMI result Body Mass Index 26.3 Tobacco/Smoking Status: Tobacco use Status Tobacco use date assessed 02/18/25 02/18/25 15:12 Patient Tobacco Use Status Current everyday Tobacco 02/18/25 15:07 Tobacco use type Cigarette 02/18/25 15:07 e-Cigarette/Vaping Use Never Used 02/18/25 15:07 Thrive Assessment: Date of Thrive Assessment Date Thrive assessed 08/27/24 02/18/25 15:07 Currently or been in a relationship where the following occur: I choose not to answer Const Other: General: no acute distress and well developed Nutritional Appearance: well nourished Orientation/consciousness: [facility]: Yes normocephalic and Yes atraumatic Eyes General: appearance normal, both eyes and all related structures Pupils: Equal, round and reactive pupils present EOM: EOMs intact bilaterally Resp Effort & Inspection: normal respiratory effort Auscultation: clear to auscultation bilaterally Cardio Rate: regular rate Rhythm: regular rhythm Heart sounds: S1 normal heart sound present, S2 normal heart sound present, no gallops, no murmurs and no rubs Extrem General: Yes normal to inspection, No edema and No calf tenderness Skin General: warm and dry. Normal skin color. Normal skin turgor Neuro General: patient oriented x3, gait normal and no focal neuro deficit Cranial nerves: Yes Equal, round and reactive pupils present Cognition (Neuro): normal cognition Gait exam (Neuro): Normal gait present Sensory Exam: No Sensory deficit (Neuro) Psych Appearance: grossly normal Affect: normal affect Attitude: cooperative Thought process: Normal thought process present Coding Level of Care Code Est Pt Level 3 (87610) Diagnoses Other hyperlipidemia E78.49 Hyperlipidemia type: other hyperlipidemia Assessment & Plan Assessment & Plan (1) Hyperlipidemia: Code(s): E78.5 - Hyperlipidemia, unspecified Category: Medical Qualifiers: Hyperlipidemia type: other hyperlipidemia Qualified Code(s): E78.49 - Other hyperlipidemia Plan: Recent triglycerides level slightly elevated, 152, previous level was 219; HDL is slightly low, 40; total cholesterol and LDL levels are normal. Advised to limit foods high in saturated fat and avoid foods high in trans fat. Routine exercise encouraged. Fast for 10-12 hours, may drink water, and perform the provider blood work a few days before next visit. Follow-up in 2-3 months for transfer of care with a new provider within the practice. Return sooner with with symptoms or concerns. Verbalized understanding and agreed with the treatment plan. Orders: Orders Lipid Panel 2 Months E78.49 - Other hyperlipidemia
[2025-02-18 15:08] VITALS: BP 145/78; PULSE 78; RESP 16; TEMP 36.6; O2SAT 96; BMI 26.3
[2025-02-18 15:20] VITALS: BP 116/66
== END 2025-02-18 15:38 | disposition home or self-care (01) ==
LOC: HO.HMCFM 14:58
PROVIDERS: PCP Nurse Practitioner Family; Visit Provider Nurse Practitioner Family
DX: E78.49 Other hyperlipidemia (principal)

== ENCOUNTER → 2025-02-18 14:57 | Outpatient (BNVA) | payer MEDICARE, MEDICAID, SELFPAY | PROVIDERS: PCP Nurse Practitioner Family; Visit Provider Nurse Practitioner Family | DX: E78.49 Other hyperlipidemia (principal) | CPT/HCPCS: 99212 ==